=== PATIENT | male | born 1995 | race Hispanic/Latino ===

== ENCOUNTER 2017-08-20 13:04 | Emergency (ER) | payer OTHER, SELFPAY ==
[2017-08-20] MEDS ORDERED: KETOROLAC 30 MG/ML INJ ONE (15:52)
[2017-08-20] MEDS ORDERED: CYCLOBENZAPRINE 10 MG TAB ONE (15:58)
--- NOTE | 2017-08-20 15:59 | ER ---
Nurse's Notes [facility] Name: Kathe Cotto Age: 22 yrs Sex: Male : 1995 Arrival Date: 08/20/2017 Time: 13:08 Bed 10 Private MD: Diagnosis: Strain of muscle, fascia and tendon of lower back Presentation: 08/20 13:16 Presenting complaint: Patient states: "I had a little bit of back pain" Patient eating lk1 chips and drinking soda in triage. Transition of care: patient was not received from another setting of care. Onset of symptoms was August 19, 2017 at 15:00. Care prior to arrival: None. 13:16 Method Of Arrival: Ambulatory lk1 13:16 Acuity: ISAAC 5 lk1 Triage Assessment: 13:18 General: Appears in no apparent distress. Behavior is calm, cooperative, appropriate lk1 for age. Pain: Complains of pain in back Pain currently is 4 out of 10 on a pain scale. Musculoskeletal: Range of motion: intact in all extremities. Historical: - Allergies: 13:18 No Known Allergies; lk1 - PMHx: 13:18 intussusception; lk1 13:21 Hypertension; lk1 - PSHx: 13:18 abdominal surgery; lk1 - Immunization history:: Adult Immunizations up to date. - Social history:: Smoking status: Patient uses tobacco products, smokes one pack cigarettes per day. Screenin:30 Abuse screen: Denies threats or abuse. Denies injuries from another. Nutritional ss screening: No deficits noted. Tuberculosis screening: Never had TB. Fall Risk None identified. Assessment: 15:30 General: Appears in no apparent distress. comfortable, Behavior is calm, cooperative. ss General: pt is eating chips . Neuro: Level of Consciousness is awake, alert, obeys commands, Oriented to person, place, time, situation. Cardiovascular: Heart tones S1 S2 present Capillary refill < 3 seconds is brisk in bilateral fingers Patient's skin is warm and dry. Chest pain is denied. Respiratory: Airway is patent Respiratory effort is even, unlabored, Respiratory pattern is regular, symmetrical. GI: No signs and/or symptoms were reported involving the gastrointestinal system. Derm: Skin is intact, is healthy with good turgor, Skin is dry, Skin is pink, warm \\T\\ dry. normal. Musculoskeletal: Circulation, motion, and sensation intact. Range of motion: intact in all extremities, Swelling absent. 16:00 Reassessment: Patient appears in no apparent distress at this time. Patient and/or ss family updated on plan of care and expected duration. Pain level reassessed. Patient is alert, oriented x 3, equal unlabored respirations, skin warm/dry/pink. Patient states feeling better. Patient states symptoms have improved. Vital Signs: 13:19 BP 167 / 92; Pulse 98; Resp 16; Temp 97.2(TE); Pulse Ox 98% on R/A; Weight 142.88 kg lk1 (R); Height 5 ft. 11 in. (180.34 cm) (R); Pain 4/10; 15:55 BP 191 / 117; Pulse 86; Resp 16; Pulse Ox 99% on R/A; lk1 16:00 BP 148 / 87 LA Supine (/lg); Pulse 85; Resp 17; ss 13:19 Body Mass Index 43.93 (142.88 kg, 180.34 cm) lk1 ED Course: 13:08 Patient arrived in ED. as 13:17 Triage completed. lk1 13:21 Arm band placed on right wrist. lk1 14:56 Catarino Delgado MD is Attending Physician. tw4 15:30 Brinda Cutler, MICKEY is Primary Nurse. ss 15:30 Patient has correct armband on for positive identification. Bed in low position. Call ss light in reach. 16:00 No provider procedures requiring assistance completed. Patient did not have IV access ss during this emergency room visit. Administered Medications: 15:37 Drug: TORadol 60 mg Route: IM; Site: right gluteus; 16:08 Follow up: Response: No adverse reaction; Pain is decreased 15:42 Drug: Flexeril 10 mg Route: PO; ss 16:08 Follow up: Response: No adverse reaction; Pain is decreased Outcome: 15:59 Discharge ordered by . tw4 16:00 Discharged to home ambulatory, with family. 16:00 Condition: good 16:09 Discharge instructions given to patient, family, Instructed on discharge instructions, ss follow up and referral plans. medication usage, Demonstrated understanding of instructions, follow-up care, medications, Prescriptions given X 2. 16:09 Patient left the ED. Signatures: Eva Sandhu Shelby, MICKEY RN ss Gogo Hernandez RN RN lk1 Catarino Delgado MD MD tw4
--- NOTE | 2017-08-20 15:59 | EDPHYS ---
Physician Documentation [facility] Name: Kathe Cotto Age: 22 yrs Sex: Male : 1995 Arrival Date: 08/20/2017 Time: 13:08 Bed 10 Private MD: ED Physician Catarino Delgado HPI: 08/20 18:26 This 22 yrs old Male presents to ER via Ambulatory with complaints of Back tw4 Pain. 18:26 The patient presents with pain that is acute. The patient presents with pain that is tw4 acute, with no known mechanism of injury. The symptoms are located in the low back. Onset: The symptoms/episode began/occurred today. The pain does not radiate. Associated signs and symptoms: The patient has no apparent associated signs or symptoms. The problem was sustained from unknown cause. Modifying factors: The patient symptoms are alleviated by nothing, the patient symptoms are aggravated by any movement. Severity of symptoms: At their worst the symptoms were moderate, in the emergency department the symptoms are unchanged. Historical: - Allergies: 13:18 No Known Allergies; lk1 - PMHx: 13:18 intussusception; lk1 13:21 Hypertension; lk1 - PSHx: 13:18 abdominal surgery; lk1 - Immunization history:: Adult Immunizations up to date. - Social history:: Smoking status: Patient uses tobacco products, smokes one pack cigarettes per day. ROS: 18:26 Constitutional: Negative for fever, chills, and weight loss, Eyes: Negative for injury, tw4 pain, redness, and discharge, Cardiovascular: Negative for chest pain, palpitations, and edema, Respiratory: Negative for shortness of breath, cough, wheezing, and pleuritic chest pain, Abdomen/GI: Negative for abdominal pain, nausea, vomiting, diarrhea, and constipation. 18:26 Neuro: Negative for headache, weakness, numbness, tingling, and seizure. 18:26 Back: Positive for pain at rest, pain with movement, Negative for injury or acute deformity, decreased range of motion. Exam: 18:26 Constitutional: This is a well developed, well nourished patient who is awake, alert, tw4 and in no acute distress. Head/Face: Normocephalic, atraumatic. Chest/axilla: Normal chest wall appearance and motion. Nontender with no deformity. No lesions are appreciated. Cardiovascular: Regular rate and rhythm with a normal S1 and S2. No gallops, murmurs, or rubs. Normal PMI, no JVD. No pulse deficits. Respiratory: Lungs have equal breath sounds bilaterally, clear to auscultation and percussion. No rales, rhonchi or wheezes noted. No increased work of breathing, no retractions or nasal flaring. Abdomen/GI: Soft, non-tender, with normal bowel sounds. No distension or tympany. No guarding or rebound. No evidence of tenderness throughout. 18:26 Back: pain, that is mild, of the right scapular area and right subscapular area, ROM is normal, normal spinal alignment noted, CVA tenderness, is absent, muscle spasm, is appreciated in the right scapular area and right subscapular area. Vital Signs: 13:19 BP 167 / 92; Pulse 98; Resp 16; Temp 97.2(TE); Pulse Ox 98% on R/A; Weight 142.88 kg lk1 (R); Height 5 ft. 11 in. (180.34 cm) (R); Pain 4/10; 15:55 BP 191 / 117; Pulse 86; Resp 16; Pulse Ox 99% on R/A; lk1 16:00 BP 148 / 87 LA Supine (/lg); Pulse 85; Resp 17; ss 13:19 Body Mass Index 43.93 (142.88 kg, 180.34 cm) lk1 MDM: 14:56 Patient medically screened. tw4 18:26 Differential diagnosis: chronic back pain, Fatigue sprain. Data reviewed: vital signs, tw4 nurses notes. Counseling: I had a detailed discussion with the patient and/or guardian regarding: the historical points, exam findings, and any diagnostic results supporting the discharge/admit diagnosis. Special discussion: I discussed with the patient/guardian in detail that at this point there is no indication for admission to the hospital. It is understood, however, that if the symptoms persist or worsen the patient needs to return immediately for re-evaluation. Administered Medications: 15:37 Drug: TORadol 60 mg Route: IM; Site: right gluteus; ss 16:08 Follow up: Response: No adverse reaction; Pain is decreased ss 15:42 Drug: Flexeril 10 mg Route: PO; ss 16:08 Follow up: Response: No adverse reaction; Pain is decreased ss Disposition: 08/20/17 15:59 Discharged to Home. Impression: Strain of muscle, fascia and tendon of lower back. - Condition is Stable. - Discharge Instructions: Back Injury Prevention, [id number], Hypertension, Jjvh-ra-Vjla, Back Pain, Adult, [id number], Back Exercises, Azjw-ym-Eygx. - Prescriptions for Ibuprofen 800 mg Oral Tablet - take 1 tablet by ORAL route every 8 hours As needed take with food; 30 tablet. Cyclobenzaprine 10 mg Oral Tablet - take 1 tablet by ORAL route every 8 hours As needed; 30 tablet. - Medication Reconciliation Form, Thank You Letter, Antibiotic Education, Prescription Opioid Use form. - Follow up: Private Physician; When: As needed; Reason: Recheck today's complaints, Continuance of care, Re-evaluation by your physician. - Problem is new. - Symptoms have improved. Signatures: Brinda Cutler RN RN Gogo Hernandez RN RN lk1 Catarino Delgado MD MD tw4
[2017-08-20 16:14] VITALS: TEMP 97.2
[2017-08-20 16:15] VITALS: O2SAT 99
[2017-08-20 16:17] VITALS: BP 148/87
== END 2017-08-20 16:09 | disposition home or self-care (01) ==
LOC: ER 13:04
DX: S39.012A Strain of muscle, fascia and tendon of lower back, initial encounter (principal); X58.XXXA Exposure to other specified factors, initial encounter; Y93.9 Activity, unspecified; Y92.9 Unspecified place or not applicable; I10 Essential (primary) hypertension; F17.210 Nicotine dependence, cigarettes, uncomplicated
CPT/HCPCS: 96372; 99283

== ENCOUNTER 2019-04-01 08:08 | Emergency (ER) | payer SELFPAY ==
--- NOTE | 2019-04-01 09:17 | ER ---
Nurse's Notes [facility] Name: Kathe Cotto Age: 23 yrs Sex: Male : 1995 Arrival Date: 04/01/2019 Time: 08:12 Bed 14 Private MD: Unknown, Unknown Diagnosis: Essential (primary) hypertension-uncontrolled;Blood in semen Presentation: 04/01 08:31 Presenting complaint: Patient states: small amount of blood in semen 2 days ago, was iw brownish tint, denies urinary s/s , had some belly pain a few days before that and was worried that had something to do with it, denies pain at this time. Transition of care: patient was not received from another setting of care. Onset of symptoms was March 30, 2019. Risk Assessment: Do you want to hurt yourself or someone else? Patient reports no desire to harm self or others. Initial Sepsis Screen: Does the patient meet any 2 criteria? No. Patient's initial sepsis screen is negative. Does the patient have a suspected source of infection? No. Patient's initial sepsis screen is negative. Care prior to arrival: None. 08:31 Method Of Arrival: Ambulatory iw 08:31 Acuity: ISAAC 4 iw Historical: - Allergies: 08:33 No Known Allergies; iw - Home Meds: 08:33 None [Active]; iw - PMHx: 08:33 Hypertension; intussusception; iw - PSHx: 08:33 abdominal surgery; iw - Immunization history:: Adult Immunizations up to date. - Social history:: Smoking status: Patient uses tobacco products, smokes one-half pack cigarettes per day. - Ebola Screening: : Patient negative for fever greater than or equal to 101.5 degrees Fahrenheit, and additional compatible Ebola Virus Disease symptoms Patient denies exposure to infectious person Patient denies travel to an Ebola-affected area in the 21 days before illness onset No symptoms or risks identified at this time. Screenin:25 Abuse screen: Denies threats or abuse. Nutritional screening: No deficits noted. rb1 Tuberculosis screening: No symptoms or risk factors identified. Fall Risk None identified. Assessment: 08:25 General: Appears in no apparent distress. comfortable, Behavior is calm, cooperative, rb1 Denies fever. Pain: Denies pain. Neuro: Level of Consciousness is awake, alert, obeys commands, Oriented to person, place, time, situation. Cardiovascular: Capillary refill < 3 seconds is brisk in bilateral fingers. Respiratory: Airway is patent Respiratory effort is even, unlabored, Respiratory pattern is regular, symmetrical. GI: No signs and/or symptoms were reported involving the gastrointestinal system. : Reports Blood in Semen Denies burning with urination, pain with urination testicular. Derm: Skin is dry, Skin is normal, Skin temperature is warm. 09:15 Reassessment: Patient appears in no apparent distress at this time. No changes from rb1 previously documented assessment. Vital Signs: 08:33 BP 175 / 119; Pulse 92; Resp 16; Temp 97.5; Pulse Ox 99% on R/A; Weight 131.54 kg; iw Height 6 ft. 0 in. (182.88 cm); Pain 0/10; 09:15 BP 177 / 99; Pulse 82; Resp 19; Temp 97.7(O); Pulse Ox 98% on R/A; Pain 0/10; rb1 08:33 Body Mass Index 39.33 (131.54 kg, 182.88 cm) ED Course: 08:12 Patient arrived in ED. ag5 08:12 Unknown, Unknown is Private Physician. ag5 08:15 Ingrid Hernández FNP-C is [facility]. kb 08:15 Gentry Hansen MD is Attending Physician. kb 08:25 Patient has correct armband on for positive identification. Bed in low position. Call rb1 light in reach. Side rails up X 1. Pulse ox on. NIBP on. 08:33 Triage completed. iw 08:33 Arm band placed on. iw 08:35 Beba Varner, RN is Primary Nurse. rb1 09:23 No provider procedures requiring assistance completed. Patient did not have IV access rb1 during this emergency room visit. Administered Medications: No medications were administered Outcome: 09:17 Discharge ordered by . kb 09:23 Patient left the ED. rb1 09:23 Discharged to home ambulatory. rb1 09:23 Condition: stable 09:23 Discharge instructions given to patient, Instructed on discharge instructions, follow up and referral plans. Demonstrated understanding of instructions, follow-up care, Prescriptions given X none Signatures: Ingrid Hernández FNP-C FNP-Daphne Scott RN RN Varner, Beba, RN RN rb1 Wendy, Ajpuma ag5
--- NOTE | 2019-04-01 09:17 | EDPHYS ---
Physician Documentation [facility] Name: Kathe Cotto Age: 23 yrs Sex: Male : 1995 Arrival Date: 04/01/2019 Time: 08:12 Bed 14 Private MD: Unknown, Unknown ED Physician Gentry Hansen HPI: 04/01 09:03 This 23 yrs old Male presents to ER via Ambulatory with complaints of Medical kb Complaint. 09:03 The patient presents with blood in semen. Onset: The symptoms/episode began/occurred 4 kb day(s) ago. Modifying factors: The symptoms are alleviated by nothing, the symptoms are aggravated by nothing. Associated signs and symptoms: Pertinent positives: blood in semen, Pertinent negatives: abdominal pain, constipation, diarrhea, dysuria, fever, hematuria, nausea, vomiting. Severity of symptoms: At their worst the symptoms were mild, in the emergency department the symptoms are unchanged. The patient has not experienced similar symptoms in the past. The patient has not recently seen a physician. Pt reports blood in semen for 4 days. Denies pain (testicular, penile, or any other), discharge, blood in urine, dysuria. . Historical: - Allergies: 08:33 No Known Allergies; iw - Home Meds: 08:33 None [Active]; iw - PMHx: 08:33 Hypertension; intussusception; iw - PSHx: 08:33 abdominal surgery; iw - Immunization history:: Adult Immunizations up to date. - Social history:: Smoking status: Patient uses tobacco products, smokes one-half pack cigarettes per day. - Ebola Screening: : Patient negative for fever greater than or equal to 101.5 degrees Fahrenheit, and additional compatible Ebola Virus Disease symptoms Patient denies exposure to infectious person Patient denies travel to an Ebola-affected area in the 21 days before illness onset No symptoms or risks identified at this time. ROS: 09:01 Constitutional: Negative for fever, chills, and weight loss, Neck: Negative for injury, kb pain, and swelling, Cardiovascular: Negative for chest pain, palpitations, and edema, Respiratory: Negative for shortness of breath, cough, wheezing, and pleuritic chest pain, Abdomen/GI: Negative for abdominal pain, nausea, vomiting, diarrhea, and constipation, Back: Negative for injury and pain, MS/Extremity: Negative for injury and deformity, Skin: Negative for injury, rash, and discoloration, Neuro: Negative for headache, weakness, numbness, tingling, and seizure. 09:01 : Positive for blood in semen. Exam: 09: Constitutional: This is a well developed, well nourished patient who is awake, alert, kb and in no acute distress. Head/Face: Normocephalic, atraumatic. Neck: Trachea midline, no thyromegaly or masses palpated, and no cervical lymphadenopathy. Supple, full range of motion without nuchal rigidity, or vertebral point tenderness. No Meningismus. Chest/axilla: Normal chest wall appearance and motion. Nontender with no deformity. No lesions are appreciated. Cardiovascular: Regular rate and rhythm with a normal S1 and S2. No gallops, murmurs, or rubs. Normal PMI, no JVD. No pulse deficits. Respiratory: Lungs have equal breath sounds bilaterally, clear to auscultation and percussion. No rales, rhonchi or wheezes noted. No increased work of breathing, no retractions or nasal flaring. Abdomen/GI: Soft, non-tender, with normal bowel sounds. No distension or tympany. No guarding or rebound. No evidence of tenderness throughout. Back: No spinal tenderness. No costovertebral tenderness. Full range of motion. Skin: Warm, dry with normal turgor. Normal color with no rashes, no lesions, and no evidence of cellulitis. MS/ Extremity: Pulses equal, no cyanosis. Neurovascular intact. Full, normal range of motion. Neuro: Awake and alert, GCS 15, oriented to person, place, time, and situation. Cranial nerves II-XII grossly intact. Motor strength 5/5 in all extremities. Sensory grossly intact. Cerebellar exam normal. Normal gait. Vital Signs: 08:33 BP 175 / 119; Pulse 92; Resp 16; Temp 97.5; Pulse Ox 99% on R/A; Weight 131.54 kg; iw Height 6 ft. 0 in. (182.88 cm); Pain 0/10; 09:15 BP 177 / 99; Pulse 82; Resp 19; Temp 97.7(O); Pulse Ox 98% on R/A; Pain 0/10; rb1 08:33 Body Mass Index 39.33 (131.54 kg, 182.88 cm) iw MDM: 08:27 Patient medically screened. kb 09:01 Data reviewed: vital signs, nurses notes. Data interpreted: Pulse oximetry: on room air kb is 99 %. Interpretation: normal. Counseling: I had a detailed discussion with the patient and/or guardian regarding: the historical points, exam findings, and any diagnostic results supporting the discharge/admit diagnosis, lab results, the need for outpatient follow up, a family practitioner, to return to the emergency department if symptoms worsen or persist or if there are any questions or concerns that arise at home. 09:15 ED course: Discussed blood pressure with pt. States "I do take medication for it kb sometimes, but not a lot. I used to be on some, but I don't really keep up with it." Educated on risks of uncontrolled HTN and need for follow up with PCP to get BP under control. Educated on diet and exercise, as well as monitoring until follow up.Verbal understanding received. 04/01 09:05 Order name: Urine Dipstick--Ancillary (enter results) eb 04/01 08:33 Order name: Urine Dipstick-Ancillary (obtain specimen); Complete Time: 09:17 kb Administered Medications: No medications were administered Disposition: 11:54 Co-signature as Attending Physician, Gentry Hansen MD. rn Disposition: 04/01/19 09:17 Discharged to Home. Impression: Essential (primary) hypertension - uncontrolled, Blood in semen. - Condition is Stable. - Discharge Instructions: Hypertension, [id number], Managing Your Hypertension. - Medication Reconciliation Form, Thank You Letter, Antibiotic Education, Prescription Opioid Use form. - Follow up: Emergency Department; When: As needed; Reason: Worsening of condition. Follow up: Private Physician; When: 2 - 3 days; Reason: Recheck today's complaints, Continuance of care, Re-evaluation by your physician. Signatures: Dispatcher [employer] Ingrid Baird, ANUSHA FAIRP-Daphne Scott, Gentry Dixon RN, MD MD rn Barber, Rebecca, RN RN rb1 Corrections: (The following items were deleted from the chart) 09:23 09:17 04/01/2019 09:17 Discharged to Home. Impression: Essential (primary) hypertension rb1 - uncontrolled; Blood in semen. Condition is Stable. Forms are Medication Reconciliation Form, Thank You Letter, Antibiotic Education, Prescription Opioid Use. Follow up: Emergency Department; When: As needed; Reason: Worsening of condition. Follow up: Private Physician; When: 2 - 3 days; Reason: Recheck today's complaints, Continuance of care, Re-evaluation by your physician. kb
[2019-04-01 09:29] VITALS: BP 175/119; TEMP 97.5; O2SAT 99
[2019-04-01 09:34] LABS: Urine Blood NEGATIVE (NEG); Urine Glucose NEGATIVE (NEG); Urine Protein NEGATIVE (NEG); Urine Specific Gravity 1.025 (1.005-1.030)
== END 2019-04-01 09:23 | disposition home or self-care (01) ==
LOC: ER 08:08
DX: I10 Essential (primary) hypertension (principal); F17.210 Nicotine dependence, cigarettes, uncomplicated
CPT/HCPCS: 81003; 99283

== ENCOUNTER 2019-10-03 08:04 | Emergency (ER) | payer SELFPAY ==
--- NOTE | 2019-10-03 09:04 | RAD REPORT ---
EXAM DESCRIPTION: RAD - Hand Left 3 View - 10/03/2019 8:50 am CLINICAL HISTORY: hand injury, persistent hand pain following trauma COMPARISON: None. FINDINGS: Distal left fifth metacarpal fracture is present at the shaft metacarpal head junction. Sm all fracture fragments are present. Ventral angulation of approximately 15 degrees noted. No distract ion. Elsewhere the bones and joints are intact. Soft tissue swelling is present in the region of the fract ure. No foreign body. IMPRESSION: Left fifth distal metacarpal fracture as detailed.
--- NOTE | 2019-10-03 09:49 | EDPHYS ---
Physician Documentation [facility] Name: Kathe Cotto Age: 24 yrs Sex: Male : 1995 Arrival Date: 10/03/2019 Time: 08:06 Bed 7 Private MD: ED Physician Eileen Christine HPI: 10/02 08:37 This 24 yrs old Male presents to ER via Ambulatory with complaints of Hand jmm Swelling. 08:37 The patient or guardian reports injury, pain. Onset: The symptoms/episode jmm began/occurred acutely, 4 day(s) ago. Modifying factors: The symptoms are alleviated by nothing, the symptoms are aggravated by nothing. Associated signs and symptoms: Pertinent negatives: numbness distally, tingling distally. This is a 24 year old male with a history of htn that presents to the ED with complaints of left hand swelling beginning after punching a wooden stud. patient denies laceration or puncture. Patient denies other injury. . Historical: - Allergies: 08:22 No Known Allergies; bp - Home Meds: 08:22 None [Active]; bp - PMHx: 08:22 Hypertension; intussusception; bp - Immunization history:: Adult Immunizations up to date. - Social history:: Smoking status: Patient denies any tobacco usage or history of. ROS: 08:37 Constitutional: Negative for fever, chills, and weight loss, Cardiovascular: Negative jmm for chest pain, palpitations, and edema, Respiratory: Negative for shortness of breath, cough, wheezing, and pleuritic chest pain. 08:37 MS/extremity: Positive for injury or acute deformity, pain, swelling. 08:37 All other systems are negative. Exam: 08:37 Constitutional: This is a well developed, well nourished patient who is awake, alert, jmm and in no acute distress. Head/Face: atraumatic. Eyes: EOMI, no conjunctival erythema appreciated ENT: Moist Mucus Membranes Neck: Trachea midline, Supple Chest/axilla: Normal chest wall appearance and motion. Cardiovascular: Regular rate and rhythm. No edema appreciated Respiratory: Normal respirations, no respiratory distress appreciated Abdomen/GI: Non distended, soft Back: Normal ROM Skin: General appearance color normal 08:37 Musculoskeletal/extremity: swelling noted to the left hand, 5th metacarpal TTP, compartments are soft, < 2 sec dist cap refill, NVI. 08:37 Skin: Appearance: Color: normal in color. 08:37 Neuro: Orientation: is normal, Mentation: is normal, Memory: is normal. 08:37 Psych: Behavior/mood is pleasant, cooperative. Vital Signs: 08:21 BP 175 / 122; Pulse 79; Resp 16; Temp 98; Pulse Ox 100% ; Weight 142.88 kg; Height 6 bp ft. (182.88 cm); 09:26 BP 163 / 114; Pulse 68; Resp 16; Pulse Ox 98% ; bp 10:37 BP 157 / 97; Pulse 65; Resp 17; Temp 98; Pulse Ox 99% ; bp 08:21 Body Mass Index 42.72 (142.88 kg, 182.88 cm) bp Procedures: 09:36 Splinting: Splint applied to left hand using ulnar gutter. applied by tech. Examined by phillip me, post splint application: neurovascular intact, 2+ distal pulses palpable, brisk capillary refill noted, Patient tolerated well. MDM: 08:19 Patient medically screened. simon 09:47 Data reviewed: vital signs, nurses notes. Counseling: I had a detailed discussion with phillip the patient and/or guardian regarding: the historical points, exam findings, and any diagnostic results supporting the discharge/admit diagnosis, radiology results, the need for outpatient follow up, to return to the emergency department if symptoms worsen or persist or if there are any questions or concerns that arise at home. ED course: I discussed the need for further evaluation by orthopedics/hand. Patient was otherwise given strict return precautions. Patient understood and agrees with the plan of care. . 10:31 ED course: INSURANCE DEFENSE ATTORNEY aware, no results found for patient. . [facility] 10/02 08:35 Order name: Hand Left 3 View XRAY; Complete Time: 09:05 clari 10/02 09:06 Order name: Ulnar Gutter splint; Complete Time: 09:31 clari Administered Medications: No medications were administered Disposition: 18:18 Co-signature as Attending Physician, Eielen Christine MD. ma2 Disposition: 10/03/19 09:48 Discharged to Home. Impression: Displaced fracture of neck of fifth metacarpal bone, left hand. - Condition is Stable. - Discharge Instructions: Boxer's Fracture. - Prescriptions for Ultracet 37.5- 325 mg Oral Tablet - take 1 tablet by ORAL route every 6 hours - for up to 5 days; do not exceed 8 tablets per day.; 20 tablet. - Medication Reconciliation Form, Thank You Letter, Antibiotic Education, Prescription Opioid Use form. - Follow up: Pardeep Sherwood MD; When: 2 - 3 days; Reason: Recheck today's complaints, Continuance of care, Re-evaluation by your physician. Signatures: Dispatcher [employer] EDMS Tj Marshall PA PA jmm Peltier, Brian, RN RN bp Eileen Christine MD MD ma2 Corrections: (The following items were deleted from the chart) 10:39 09:48 10/03/2019 09:48 Discharged to Home. Impression: Displaced fracture of neck of bp fifth metacarpal bone, left hand. Condition is Stable. Forms are Medication Reconciliation Form, Thank You Letter, Antibiotic Education, Prescription Opioid Use. Follow up: Pardeep Sherwood; When: 2 - 3 days; Reason: Recheck today's complaints, Continuance of care, Re-evaluation by your physician. phillip
--- NOTE | 2019-10-03 09:49 | ER ---
Nurse's Notes [facility] Name: Kathe Cotto Age: 24 yrs Sex: Male : 1995 Arrival Date: 10/03/2019 Time: 08:06 Bed 7 Private MD: Diagnosis: Displaced fracture of neck of fifth metacarpal bone, left hand Presentation: 10/02 08:21 Chief complaint: Patient states: LEFT HAND SWELLING x1 WK AFTER PUNCHING HARD SURFACE. bp Coronavirus screen: Proceed with normal triage. Ebola Screen: No symptoms or risks identified at this time. Initial Sepsis Screen: Does the patient meet any 2 criteria? No. Patient's initial sepsis screen is negative. Does the patient have a suspected source of infection? No. Patient's initial sepsis screen is negative. Risk Assessment: Do you want to hurt yourself or someone else? Patient reports no desire to harm self or others. Onset of symptoms is unknown. 08:21 Method Of Arrival: Ambulatory bp 08:21 Acuity: ISAAC 4 bp Triage Assessment: 08:22 General: Appears in no apparent distress. comfortable, obese, Behavior is cooperative, bp appropriate for age, anxious. Pain: Complains of pain in left hand. EENT: No deficits noted. Neuro: No deficits noted. Cardiovascular: No deficits noted. Respiratory: No deficits noted. GI: No signs and/or symptoms were reported involving the gastrointestinal system. : No signs and/or symptoms were reported regarding the genitourinary system. Derm: No deficits noted. Musculoskeletal: Circulation, motion, and sensation intact. Swelling present in left hand. Injury Description: SWELLING LEFT HAND. Historical: - Allergies: 08:22 No Known Allergies; bp - Home Meds: 08:22 None [Active]; bp - PMHx: 08:22 Hypertension; intussusception; bp - Immunization history:: Adult Immunizations up to date. - Social history:: Smoking status: Patient denies any tobacco usage or history of. Screenin:24 Abuse screen: Denies threats or abuse. Denies injuries from another. Nutritional bp screening: No deficits noted. Tuberculosis screening: No symptoms or risk factors identified. Fall Risk None identified. Assessment: 08:24 General: SEE TRIAGE NOTE. bp 09:27 Reassessment: VS STABLE. SPLINTING IN PROCESS. bp 10:37 Reassessment: PT PROVIDED XRAY CD. D/C HOME AMBULATORY, DX WITH [facility]. bp Vital Signs: 08:21 BP 175 / 122; Pulse 79; Resp 16; Temp 98; Pulse Ox 100% ; Weight 142.88 kg; Height 6 bp ft. (182.88 cm); 09:26 BP 163 / 114; Pulse 68; Resp 16; Pulse Ox 98% ; bp 10:37 BP 157 / 97; Pulse 65; Resp 17; Temp 98; Pulse Ox 99% ; bp 08:21 Body Mass Index 42.72 (142.88 kg, 182.88 cm) bp ED Course: 08:06 Patient arrived in ED. as 08:07 Tj Marshall PA is PHCP. jmm 08:07 Eileen Christine MD is Attending Physician. jmm 08:21 Delfino Murguia, RN is Primary Nurse. bp 08:22 Triage completed. bp 08:22 Arm band placed on. bp 08:24 Patient has correct armband on for positive identification. Bed in low position. Call bp light in reach. Side rails up X2. 08:51 Hand Left 3 View XRAY In Process Unspecified. EDMS 09:32 Orthoglass splint: Ulnar gutter/Boxer splint applied on left forearm. capillary refill dh3 < 3 seconds. Viewed by Tj Marshall, P.Florencio. 09:48 Pardeep Sherwood MD is Referral Physician. [facility] 10:37 No provider procedures requiring assistance completed. Patient did not have IV access bp during this emergency room visit. Administered Medications: No medications were administered Outcome: 09:48 Discharge ordered by MD. jmm 10:37 Discharged to home ambulatory. bp 10:37 Condition: stable 10:37 Discharge instructions given to patient, Instructed on discharge instructions, follow up and referral plans. medication usage, Demonstrated understanding of instructions, follow-up care, medications, splint care, Prescriptions given X 1. 10:39 Patient left the ED. bp Signatures: Dispatcher [employer] EDMS Tj Marshall PA PA Eva Goyal Deanna dh3 Delfino Murguia, RN RN bp Corrections: (The following items were deleted from the chart) 08:24 08:21 Pulse 79bpm; Resp 16bpm; Pulse Ox 100%; Temp 98F; 142.88 kg; Height 6 ft.; BMI: bp 42.7; bp
[2019-10-03 10:46] VITALS: TEMP 98
[2019-10-03 10:49] VITALS: BP 157/97; O2SAT 99
== END 2019-10-03 10:39 | disposition home or self-care (01) ==
LOC: ER 08:04
PROC: 2W3DX1Z Immobilization of Left Lower Arm using Splint (ICD-10-PCS; principal; 2019-10-03)
DX: S62.337A Displaced fracture of neck of fifth metacarpal bone, left hand, initial encounter for closed fracture (principal); W22.09XA Striking against other stationary object, initial encounter; Y93.89 Activity, other specified; Y92.9 Unspecified place or not applicable; I10 Essential (primary) hypertension
CPT/HCPCS: 99283

== ENCOUNTER 2020-08-14 14:21 | Emergency (ER) | payer SELFPAY ==
[2020-08-14] MEDS ORDERED: HYDROCODONE/APAP 10/325 TAB ONE (15:51)
--- NOTE | 2020-08-14 16:06 | RAD REPORT ---
EXAM DESCRIPTION: CT - Stone Protocol - 08/14/2020 3:45 pm CLINICAL HISTORY: Abdominal pain./right flank pain COMPARISON: None. TECHNIQUE: Computed axial tomography of the abdomen pelvis was obtained without oral or IV contrast. Lack of IV and oral contrast limits evaluation of solid organs, bowel, and vessels. Coronal reformat diane images were obtained and reviewed. All CT scans are performed using dose optimization technique as appropriate and may include automated exposure control or mA/KV adjustment according to patient size. FINDINGS: A renal calculus is not seen. An ureteral calculus is not noted. A bladder calculus is not present. Fatty liver. Liver is mildly enlarged. Spleen, pancreas and adrenals appear grossly normal There is no evidence of diverticulitis. Umbilical hernia contains fat. The herniated sac measures 4.1 centimeters. The neck measures 1.4 centimeters IMPRESSION: Negative for a genitourinary calculus
[2020-08-14 17:03] LABS: Urine Bacteria <20 /HPF (NONE SEEN); Urine RBC NONE SEEN /HPF (NONE SEEN)
--- NOTE | 2020-08-14 17:29 | EDPHYS ---
Physician Documentation [facility] Name: Kathe Cotto Age: 25 yrs Sex: Male : 1995 Arrival Date: 08/14/2020 Time: 14:26 Bed 24 Private MD: ED Physician Gentry Hansen HPI: 08/14 15:36 This 25 yrs old Male presents to ER via Ambulatory with complaints of Back pm1 Pain. 15:36 The patient presents with pain that is acute. The symptoms are located in the right low pm1 back. Onset: The symptoms/episode began/occurred 1 day(s) ago. The pain does not radiate. Associated signs and symptoms: The patient has no apparent associated signs or symptoms, Pertinent negatives: abdominal pain, constipation, dysuria, fever, incontinence, numbness, tingling. The problem was sustained from unknown cause. Modifying factors: the patient symptoms are aggravated by bending, movement. Severity of symptoms: in the emergency department the symptoms are unchanged. The patient has experienced similar episodes in the past, a few times, today's symptoms are similar, to previous low back muscle strain. The patient has not recently seen a physician. Historical: - Allergies: 15:03 No Known Allergies; ll1 - PMHx: 15:03 Hypertension; intussusception; ll1 - PSHx: 15:03 intussusception sx; ll1 - Immunization history:: Flu vaccine is not up to date. - Social history:: Smoking status: Patient reports the use of cigarette tobacco products, smokes one-half pack cigarettes per day. ROS: 15:36 Constitutional: Negative for fever, chills, and weight loss, Neck: Negative for injury, pm1 pain, and swelling, Cardiovascular: Negative for chest pain, palpitations, and edema, Respiratory: Negative for shortness of breath, cough, wheezing, and pleuritic chest pain, Abdomen/GI: Negative for abdominal pain, nausea, vomiting, diarrhea, and constipation. 15:36 : Negative for injury, bleeding, discharge, and swelling, MS/Extremity: Negative for injury and deformity, Skin: Negative for injury, rash, and discoloration. 15:36 Neuro: Negative for headache, weakness, numbness, tingling, and seizure. 15:36 Back: Positive for pain with movement, of the right low back. Exam: 15:36 Constitutional: This is a well developed, well nourished patient who is awake, alert, pm1 and in no acute distress. Head/Face: Normocephalic, atraumatic. 15:36 Skin: Warm, dry with normal turgor. Normal color with no rashes, no lesions, and no evidence of cellulitis. MS/ Extremity: Pulses equal, no cyanosis. Neurovascular intact. Full, normal range of motion. 15:36 Cardiovascular: Exam negative for acute changes, Rate: normal, Rhythm: regular, Pulses: no pulse deficits are appreciated. 15:36 Respiratory: Exam negative for acute changes, respiratory distress, shortness of breath. 15:36 Back: normal spinal alignment noted, muscle spasm, is appreciated in the right low back, no tenderness over spinous processes. 15:36 Neuro: Exam negative for acute changes, Orientation: is normal, Mentation: is normal, Motor: is normal, moves all fours, Sensation: is normal, no obvious gross deficits, Gait: is steady, at a normal pace, without difficulty. Vital Signs: 15:00 Pulse 93; Resp 18; Temp 99.1; Pulse Ox 96% ; Weight 151.95 kg; Height 6 ft. 0 in. ll1 (182.88 cm); Pain 7/10; 15:00 BP 158 / 104; ll1 15:00 Body Mass Index 45.43 (151.95 kg, 182.88 cm) ll1 MDM: 15:27 Patient medically screened. pm1 17:25 Data reviewed: vital signs. Data interpreted: Pulse oximetry: on room air is 96 %. pm1 Interpretation: normal. 17:26 Counseling: I had a detailed discussion with the patient and/or guardian regarding: the pm1 historical points, exam findings, and any diagnostic results supporting the discharge/admit diagnosis, lab results, radiology results, the need for outpatient follow up, to return to the emergency department if symptoms worsen or persist or if there are any questions or concerns that arise at home. 17:40 Special discussion: I discussed with the patient the need to follow-up with the pm1 PCP/specialist for the noted incidental finding on X-ray/CT scanning. 08/14 15:31 Order name: Urine Microscopic Only pm1 08/14 15:32 Order name: Urine Microscopic Only; Complete Time: 17:22 EDMS 08/14 15:31 Order name: CT Stone Protocol; Complete Time: 16:35 pm1 08/14 15:47 Order name: Urine Dipstick--Ancillary (enter results) eb 08/14 15:31 Order name: Urine Dipstick-Ancillary (obtain specimen); Complete Time: 15:36 pm1 Administered Medications: 15:36 Drug: [place] (HYDROcodone-acetaminophen) 10 mg-325 mg 1 tabs {Note: rass 0.} Route: PO; ll1 17:45 Drug: Lidoderm 5 % (700 mg/patch) 1 patches Route: Topical; Site: affected area; Disposition: 18:20 Co-signature as Attending Physician, Gentry Hansen MD. rn Disposition: 08/14/20 17:28 Discharged to Home. Impression: Low back pain, Strain of muscle, fascia and tendon of lower back. - Condition is Stable. - Discharge Instructions: Back Pain, Adult, Musculoskeletal Pain, Back Injury Prevention, [id number]. - Prescriptions for Tylenol- Codeine #3 300-30 mg Oral Tablet - take 2 tablets by ORAL route every 4-6 hours As needed; 20 tablet. Cyclobenzaprine 10 mg Oral Tablet - take 1 tablet by ORAL route every 8 hours As needed; 30 tablet. Lidoderm 5 % Topical adhesive patch,medicated - apply 1 patch by TRANSDERMAL route once daily As needed 12 hours on and 12 hours off in a 24 hour period; 30 Transdermal Patch. - Medication Reconciliation Form, Thank You Letter, Antibiotic Education, Prescription Opioid Use form. - Follow up: Emergency Department; When: As needed; Reason: Worsening of condition. Follow up: Private Physician; When: 2 - 3 days; Reason: Recheck today's complaints, Continuance of care, Re-evaluation by your physician. - Problem is new. - Symptoms have improved. Signatures: Dispatcher [employer] [facility] Daphne Morales RN RN Gentry Hansen MD MD rn Marinas, Patrick, [employer] pm1 Giovanni Ken RN RN ll1 Corrections: (The following items were deleted from the chart) 17:29 17:28 08/14/2020 17:28 Discharged to Home. Impression: Low back pain; Muscle spasm of pm1 back. Condition is Stable. Forms are Medication Reconciliation Form, Thank You Letter, Antibiotic Education, Prescription Opioid Use. Follow up: Emergency Department; When: As needed; Reason: Worsening of condition. Follow up: Private Physician; When: 2 - 3 days; Reason: Recheck today's complaints, Continuance of care, Re-evaluation by your physician. Problem is new. Symptoms have improved. pm1 17:46 17:29 08/14/2020 17:28 Discharged to Home. Impression: Low back pain; Strain of muscle, iw fascia and tendon of lower back. Condition is Stable. Discharge Instructions: Back Pain, Adult, Musculoskeletal Pain, Back Injury Prevention, [id number]. Forms are Medication Reconciliation Form, Thank You Letter, Antibiotic Education, Prescription Opioid Use. Follow up: Emergency Department; When: As needed; Reason: Worsening of condition. Follow up: Private Physician; When: 2 - 3 days; Reason: Recheck today's complaints, Continuance of care, Re-evaluation by your physician. Problem is new. Symptoms have improved. pm1
--- NOTE | 2020-08-14 17:29 | ER ---
Nurse's Notes [facility] Name: Kathe Cotto Age: 25 yrs Sex: Male : 1995 Arrival Date: 08/14/2020 Time: 14:26 Bed 24 Private MD: Diagnosis: Low back pain;Strain of muscle, fascia and tendon of lower back Presentation: 08/14 15:00 Chief complaint: Patient states: R lower back pain for 1 day. Does not radiate. No ll1 trauma or falls. No fever or dysuria. Coronavirus screen: Client denies travel out of the [place] in the last 14 days. At this time, the client does not indicate any symptoms associated with coronavirus-19. Ebola Screen: Patient denies travel to an Ebola-affected area in the 21 days before illness onset. Initial Sepsis Screen: Does the patient meet any 2 criteria? No. Patient's initial sepsis screen is negative. Does the patient have a suspected source of infection? No. Patient's initial sepsis screen is negative. Risk Assessment: Do you want to hurt yourself or someone else? Patient reports no desire to harm self or others. Onset of symptoms was August 14, 2020. 15:00 Method Of Arrival: Ambulatory ll1 15:00 Acuity: ISAAC 4 ll1 Historical: - Allergies: 15:03 No Known Allergies; ll1 - PMHx: 15:03 Hypertension; intussusception; ll1 - PSHx: 15:03 intussusception sx; ll1 - Immunization history:: Flu vaccine is not up to date. - Social history:: Smoking status: Patient reports the use of cigarette tobacco products, smokes one-half pack cigarettes per day. Screenin:43 Abuse screen: Denies threats or abuse. Denies injuries from another. Nutritional iw screening: No deficits noted. Tuberculosis screening: No symptoms or risk factors identified. Fall Risk None identified. Assessment: 15:42 General: Appears in no apparent distress. comfortable, Behavior is calm, cooperative. iw Pain: Complains of pain in right mid back and right low back. Neuro: Level of Consciousness is awake, alert, obeys commands, Oriented to person, place, time, situation, Moves all extremities. Cardiovascular: Patient's skin is warm and dry. Respiratory: Respiratory effort is even, unlabored, Respiratory pattern is regular. GI:. Derm: Skin is intact, is healthy with good turgor. Musculoskeletal: Range of motion: intact in all extremities. Vital Signs: 15:00 Pulse 93; Resp 18; Temp 99.1; Pulse Ox 96% ; Weight 151.95 kg; Height 6 ft. 0 in. ll1 (182.88 cm); Pain 7/10; 15:00 BP 158 / 104; ll1 15:00 Body Mass Index 45.43 (151.95 kg, 182.88 cm) ll1 ED Course: 14:26 Patient arrived in ED. ds1 15:02 Triage completed. ll1 15:03 Arm band placed on. ll1 15:22 Jorge Mosley NP is PHCP. pm1 15:22 Gentry Hansen MD is Attending Physician. pm1 15:32 Daphne Morales RN is Primary Nurse. iw 15:42 Patient has correct armband on for positive identification. iw 15:45 CT Stone Protocol In Process Unspecified. EDMS 17:45 No provider procedures requiring assistance completed. Patient did not have IV access iw during this emergency room visit. Administered Medications: 15:36 Drug: [place] (HYDROcodone-acetaminophen) 10 mg-325 mg 1 tabs {Note: rass 0.} Route: PO; ll1 17:45 Drug: Lidoderm 5 % (700 mg/patch) 1 patches Route: Topical; Site: affected area; iw Outcome: 17:28 Discharge ordered by . pm1 17:45 Discharged to home ambulatory. iw 17:45 Condition: good 17:45 Discharge instructions given to patient, Instructed on discharge instructions, follow up and referral plans. medication usage, Demonstrated understanding of instructions, follow-up care, medications, Prescriptions given X 3. 17:46 Patient left the ED. iw Signatures: Dispatcher [employer] EDIL KeyYudi maher ds1 Daphne Morales RN RN Jorge Mosley NP DIRECTOR OF ASSESSING pm1 Giovanni Ken RN RN [facility]
[2020-08-14] MEDS ORDERED: LIDOCAINE 4% PATCH ONE (17:56)
[2020-08-14 18:16] LABS: Urine Blood NEGATIVE (Negative); Urine Glucose NEGATIVE (Negative); Urine Protein NEGATIVE (NEG); Urine Specific Gravity 1.025 (1.005-1.030)
[2020-08-15 01:46] VITALS: BP 158/104; TEMP 99.1; O2SAT 96
== END 2020-08-14 17:46 | disposition home or self-care (01) ==
LOC: ER 14:21
DX: S39.012A Strain of muscle, fascia and tendon of lower back, initial encounter (principal); I10 Essential (primary) hypertension; F17.210 Nicotine dependence, cigarettes, uncomplicated
CPT/HCPCS: 74176; 76377; 81003; 81015; 99283

== ENCOUNTER 2020-11-10 00:01 | Inpatient (IN) | payer SELFPAY ==
[2020-11-10] MEDS ORDERED: MORPHINE 4 MG/ML SYR ONE ×2 (01:11→04:13)
[2020-11-10] MEDS ORDERED: NA CHLORIDE 0.9% 1,000 ML ONE ×2 (01:12→04:14)
[2020-11-10] MEDS ORDERED: ONDANSETRON 4 MG/2 ML VIAL ONE ×2 (01:12→04:14)
[2020-11-10 01:22] LABS: Urine Blood Negative (Negative); Urine Glucose Negative (Negative); Urine Protein Trace (Negative); Urine Specific Gravity >=1.030 (1.005-1.030)
[2020-11-10 01:43] LABS: Absolute Lymphocytes (CBC) 3.2 K/uL (0.7-4.9); Basophils % 0.6 % (0-1.3); Hematocrit 49.2 % (39.6-49.0); Lymphocytes % 16.8 % (15.3-44.8); MPV 8.6 fL (7.6-11.3); RBC Red Blood Cell Count 5.92 M/uL (4.33-5.43)
[2020-11-10 02:06] LABS: Albumin 3.5 g/dL (3.4-5.0); Bilirubin Direct 0.1 mg/dL (0-0.2); Bilirubin Total 0.8 mg/dL (0.2-1.0); Protein, Total 7.6 g/dL (6.4-8.2)
[2020-11-10 02:08] LABS: Potassium 3.2 mmol/L (3.5-5.1)
--- NOTE | 2020-11-10 03:47 | EDPHYS ---
Physician Documentation [facility] Name: Kathe Cotto Age: 25 yrs Sex: Male : 1995 Arrival Date: 11/10/2020 Time: 00:04 Bed 15 Private MD: ED Physician Figueroa Nava HPI: 11/10 01:51 This 25 yrs old Male presents to ER via Ambulatory with complaints of mh7 Abdominal Pain. 01:51 The patient presents with abdominal pain in the left lower quadrant. Onset: The mh7 symptoms/episode began/occurred 4 day(s) ago. The symptoms do not radiate. 01:51 Associated signs and symptoms: Pertinent positives: constipation, Pertinent negatives: mh7 nausea, vomiting, and diarrhea, anorexia, blood in stools, chest pain, diarrhea, dysuria, fever, headache, hematuria, nausea, palpitations, shortness of breath, testicular pain, vomiting, vomiting blood. The symptoms are described as intermittent, vague, waxing/waning. Modifying factors: The symptoms are alleviated by nothing, the symptoms are aggravated by nothing. Severity of pain: At its worst the pain was moderate 2 day(s) ago, in the emergency department the pain is unchanged. Historical: - Allergies: 00:24 No Known Allergies; bb - Home Meds: 00:24 None [Active]; bb - PMHx: 00:24 Hypertension; intussusception; bb - PSHx: 00:24 intussusception sx; bb - Immunization history:: Adult Immunizations up to date. - Social history:: Smoking status: Patient reports the use of cigarette tobacco products, denies chronic smoking, but will smoke occasionally, Patient/guardian denies using alcohol, street drugs. ROS: 01:51 Constitutional: Negative for fever, chills, and weight loss, Eyes: Negative for injury, mh7 pain, redness, and discharge, ENT: Negative for injury, pain, and discharge, Neck: Negative for injury, pain, and swelling, Cardiovascular: Negative for chest pain, palpitations, and edema, Respiratory: Negative for shortness of breath, cough, wheezing, and pleuritic chest pain, Back: Negative for injury and pain, : Negative for injury, bleeding, discharge, and swelling, MS/Extremity: Negative for injury and deformity, Skin: Negative for injury, rash, and discoloration, Neuro: Negative for headache, weakness, numbness, tingling, and seizure, Psych: Negative for depression, anxiety, suicide ideation, homicidal ideation, and hallucinations, Allergy/Immunology: Negative for hives, rash, and allergies, Endocrine: Negative for neck swelling, polydipsia, polyuria, polyphagia, and marked weight changes, Hematologic/Lymphatic: Negative for swollen nodes, abnormal bleeding, and unusual bruising. Exam: 01:51 Constitutional: This is a well developed, well nourished patient who is awake, alert, mh7 and in no acute distress. Head/Face: Normocephalic, atraumatic. Eyes: Pupils equal round and reactive to light, extra-ocular motions intact. Lids and lashes normal. Conjunctiva and sclera are non-icteric and not injected. Cornea within normal limits. Periorbital areas with no swelling, redness, or edema. Neck: Trachea midline, no thyromegaly or masses palpated, and no cervical lymphadenopathy. Supple, full range of motion without nuchal rigidity, or vertebral point tenderness. No Meningismus. Chest/axilla: Normal chest wall appearance and motion. Nontender with no deformity. No lesions are appreciated. Cardiovascular: Regular rate and rhythm with a normal S1 and S2. No gallops, murmurs, or rubs. Normal PMI, no JVD. No pulse deficits. Respiratory: Lungs have equal breath sounds bilaterally, clear to auscultation and percussion. No rales, rhonchi or wheezes noted. No increased work of breathing, no retractions or nasal flaring. 01:51 Back: No spinal tenderness. No costovertebral tenderness. Full range of motion. Skin: Warm, dry with normal turgor. Normal color with no rashes, no lesions, and no evidence of cellulitis. MS/ Extremity: Pulses equal, no cyanosis. Neurovascular intact. Full, normal range of motion. Neuro: Awake and alert, GCS 15, oriented to person, place, time, and situation. Cranial nerves II-XII grossly intact. Motor strength 5/5 in all extremities. Sensory grossly intact. Cerebellar exam normal. Normal gait. Psych: Awake, alert, with orientation to person, place and time. Behavior, mood, and affect are within normal limits. 01:51 Abdomen/GI: Inspection: obese scar(s), are noted in the right lower quadrant, Bowel sounds: normal, in all quadrants, Palpation: moderate abdominal tenderness, in the left lower quadrant, mass, is not appreciated, rebound tenderness, is not appreciated, voluntary guarding, is not appreciated, involuntary guarding, is not appreciated, no appreciated organomegaly, Rectal exam: the exam is deferred, because of patient request, Indicators: McBurney's point is not tender, Bailon's sign is negative, Rovsing's sign is negative, Obturator sign is negative, Psoas sign is negative, Liver: no appreciated palpable abnormalities, Hernia: not appreciated. Vital Signs: 00:19 BP 168 / 106; Pulse 89; Resp 16 S; Temp 98.6; Pulse Ox 98% on R/A; Weight 145.15 kg bb (R); Height 6 ft. 0 in. (182.88 cm) (R); Pain 9/10; 01:28 BP 151 / 96; Pulse 95; Resp 16; Pulse Ox 98% on R/A; jm8 03:17 BP 187 / 92; Pulse 98; Resp 16; Pulse Ox 97% ; jm8 00:19 Body Mass Index 43.40 (145.15 kg, 182.88 cm) bb MDM: 03:45 Differential diagnosis: bowel obstruction, diverticulitis, non-specific abd pain, [facility] pancreatitis, Ureterolithiasis, urinary tract infection. Data reviewed: vital signs, nurses notes, lab test result(s), CBC, electrolytes, urinalysis, radiologic studies, CT scan. Data interpreted: Pulse oximetry: on room air is 97 %. Interpretation: normal. Response to treatment: the patient's symptoms have mildly improved after treatment. 03:47 Patient medically screened. [facility] 11/10 00:45 Order name: Basic Metabolic Panel [facility] 11/10 00:45 Order name: CBC with Diff [facility] 11/10 00:45 Order name: Hepatic Function [facility] 11/10 00:45 Order name: Lipase [facility] 11/10 01:22 Order name: Urine Dipstick-Ancillary; Complete Time: 02:06 [facility] 11/10 01:43 Order name: CBC with Automated Diff; Complete Time: 02:06 [facility] 11/10 00:45 Order name: CT Abd/Pelvis - IV Contrast Only [facility] 11/10 02:09 Order name: Basic Metabolic Panel; Complete Time: 02:28 [facility] 11/10 02:09 Order name: Liver (Hepatic) Function; Complete Time: 02:29 [facility] 11/10 02:09 Order name: Lipase; Complete Time: 02:29 [facility] 11/10 02:48 Order name: COVID-19 : Document "Date of Symptom Onset" if Symptomatic. tt3 11/10 03:09 Order name: CORONAVIRUS [facility] 11/10 06:20 Order name: SARS-COV-2 RT PCR [facility] 11/10 00:45 Order name: IV Saline Lock; Complete Time: 01:28 [facility] 11/10 00:45 Order name: Labs collected and sent; Complete Time: 01: [facility] 11/10 00:45 Order name: Urine Dipstick-Ancillary (obtain specimen); Complete Time: 01:26 [facility] 11/10 03:54 Order name: NPO; Complete Time: 03:55 [facility] Administered Medications: 01:06 Drug: NS 0.9% 1000 ml Route: IV; Rate: 1000 ml; Site: right antecubital; 8 04:00 Follow up: IV Status: Completed infusion jm8 01:06 Drug: morphine 4 mg Route: IVP; Site: right antecubital; jm8 02:16 Follow up: Response: No adverse reaction jm8 01:06 Drug: Zofran (Ondansetron) 4 mg Route: IVP; Site: right antecubital; jm8 02:16 Follow up: Response: No adverse reaction 8 03:40 Drug: Zosyn (piperacillin-tazobactam) 3.375 grams Route: IVPB; Infused Over: 60 mins; 8 Site: left antecubital; 04:00 Follow up: IV Status: Infusion continued upon admission jm8 03:54 Drug: morphine 4 mg Route: IVP; Site: left antecubital; jm8 04:00 Follow up: Response: No adverse reaction jm8 03:55 Drug: Zofran (Ondansetron) 4 mg Route: IVP; Site: left antecubital; jm8 04:00 Follow up: Response: No adverse reaction jm8 03:55 Drug: NS 0.9% 1000 ml Route: IV; Rate: 125 ml/hr; Site: left antecubital; jm8 04:00 Follow up: IV Status: Infusion continued upon admission jm8 Disposition: 11/10/20 03:47 Hospitalization ordered by Ankit Hansen for Inpatient Admission. Preliminary diagnosis are Acute Diverticulitis, Vomiting. - Bed requested for Telemetry/MedSurg (Inpatient). - Status is Inpatient Admission. eb - Condition is Stable. - Problem is new. - Symptoms have improved. Signatures: Dispatcher [employer] EDMS Alda Hill RN RN mw Ballard, Brenda, RN RN bb Attema, Lee, GANG HEMSTITCHING MACHINE OPERATOR-C GANG HEMSTITCHING MACHINE OPERATOR-Cla1 Nishi Kent Maurice, MD MD 7 Aguila Martínez RN RN jm8 Corrections: (The following items were deleted from the chart) 06:21 03:47 Hospitalization Ordered by Ankit Hansen MD for Inpatient Admission. Preliminary diagnosis is Acute Diverticulitis; Vomiting. Bed requested for Telemetry/MedSurg (Inpatient). Status is Inpatient Admission. Condition is Stable. Problem is new. Symptoms have improved. 7 09:28 06:21 11/10/2020 03:47 Hospitalization Ordered by Ankit Hansen MD for Inpatient eb Admission. Preliminary diagnosis is Acute Diverticulitis; Vomiting. Bed requested for Telemetry/MedSurg (Inpatient). Status is Inpatient Admission. Condition is Stable. Problem is new. Symptoms have improved.
--- NOTE | 2020-11-10 03:47 | ER ---
Nurse's Notes [facility] Name: Kathe Cotto Age: 25 yrs Sex: Male : 1995 Arrival Date: 11/10/2020 Time: 00:04 Bed 15 Private MD: Diagnosis: Acute Diverticulitis;Vomiting Presentation: 11/10 00:19 Chief complaint: Patient states: he has been having abdominal pain for several days has bb not had a bowel movement in 3 to 4 days and has difficulty urinating. Coronavirus screen: At this time, the client does not indicate any symptoms associated with coronavirus-19. Ebola Screen: No symptoms or risks identified at this time. Initial Sepsis Screen: Does the patient meet any 2 criteria? No. Patient's initial sepsis screen is negative. Does the patient have a suspected source of infection? No. Patient's initial sepsis screen is negative. Risk Assessment: Do you want to hurt yourself or someone else? Patient reports no desire to harm self or others. Onset of symptoms is unknown. 00:19 Method Of Arrival: Ambulatory bb 00:19 Acuity: ISAAC 3 bb Historical: - Allergies: 00:24 No Known Allergies; bb - Home Meds: 00:24 None [Active]; bb - PMHx: 00:24 Hypertension; intussusception; bb - PSHx: 00:24 intussusception sx; bb - Immunization history:: Adult Immunizations up to date. - Social history:: Smoking status: Patient reports the use of cigarette tobacco products, denies chronic smoking, but will smoke occasionally, Patient/guardian denies using alcohol, street drugs. Screenin:20 Abuse screen: Denies threats or abuse. Denies injuries from another. Nutritional jm8 screening: No deficits noted. Tuberculosis screening: No symptoms or risk factors identified. Fall Risk None identified. Assessment: 00:34 General: Appears in no apparent distress. uncomfortable, Behavior is calm, cooperative, jm8 appropriate for age. Pain: Complains of pain in abdomen Pain currently is 9 out of 10 on a pain scale. Quality of pain is described as crampy, Noted to be guarding, restless. Neuro: No deficits noted. Level of Consciousness is awake, alert, obeys commands, Oriented to person, place, time. Cardiovascular: No deficits noted. Respiratory: No deficits noted. Airway is patent Trachea midline Respiratory effort is even, unlabored, Respiratory pattern is regular, symmetrical. GI: Abdomen is round distended, Bowel sounds present X 4 quads. Abd is soft and non tender Reports lower abdominal pain, upper abdominal pain, constipation, no bowel movement for 3-4 days. : Reports difficulty urinating. EENT: No deficits noted. No signs and/or symptoms were reported regarding the EENT system. Derm: No deficits noted. No signs and/or symptoms reported regarding the dermatologic system. Musculoskeletal: No deficits noted. No signs and/or symptoms reported regarding the musculoskeletal system. Vital Signs: 00:19 BP 168 / 106; Pulse 89; Resp 16 S; Temp 98.6; Pulse Ox 98% on R/A; Weight 145.15 kg bb (R); Height 6 ft. 0 in. (182.88 cm) (R); Pain 9/10; 01:28 BP 151 / 96; Pulse 95; Resp 16; Pulse Ox 98% on R/A; 8 03:17 BP 187 / 92; Pulse 98; Resp 16; Pulse Ox 97% ; jm8 00:19 Body Mass Index 43.40 (145.15 kg, 182.88 cm) ED Course: 00:04 Patient arrived in ED. am4 00:19 Figueroa Nava MD is Attending Physician. 7 00:19 Patient has correct armband on for positive identification. Placed in gown. Bed in low jm8 position. Call light in reach. Side rails up X2. 00:23 Triage completed. 00:24 Arm band placed on Patient placed in an exam room, on a stretcher, on pulse oximetry. bb 03:46 Ankit Hansen MD is Hospitalizing Provider. 7 03:59 No provider procedures requiring assistance completed. Patient admitted, IV remains in jm8 place. 08:31 Susi Bills RN is Primary Nurse. tr6 Administered Medications: 01:06 Drug: NS 0.9% 1000 ml Route: IV; Rate: 1000 ml; Site: right antecubital; 8 04:00 Follow up: IV Status: Completed infusion 8 01:06 Drug: morphine 4 mg Route: IVP; Site: right antecubital; 8 02:16 Follow up: Response: No adverse reaction jm8 01:06 Drug: Zofran (Ondansetron) 4 mg Route: IVP; Site: right antecubital; jm8 02:16 Follow up: Response: No adverse reaction jm8 03:40 Drug: Zosyn (piperacillin-tazobactam) 3.375 grams Route: IVPB; Infused Over: 60 mins; jm8 Site: left antecubital; 04:00 Follow up: IV Status: Infusion continued upon admission jm8 03:54 Drug: morphine 4 mg Route: IVP; Site: left antecubital; jm8 04:00 Follow up: Response: No adverse reaction jm8 03:55 Drug: Zofran (Ondansetron) 4 mg Route: IVP; Site: left antecubital; jm8 04:00 Follow up: Response: No adverse reaction jm8 03:55 Drug: NS 0.9% 1000 ml Route: IV; Rate: 125 ml/hr; Site: left antecubital; jm8 04:00 Follow up: IV Status: Infusion continued upon admission [facility] Outcome: 03:47 Decision to Hospitalize by Provider. [facility] 03:59 Admitted to ER Hold. Please see [facility] for further documentation. [facility] 03:59 Condition: good 03:59 Instructed on the need for admit. 08:45 Admitted to Med/surg accompanied by tech, via wheelchair, room 418, Report called to jennifer griggs RN 09:28 Patient left the ED. eb Signatures: Shayy Ceballos RN Nishi Peters Maurice, MD MD Mallory Mesa Joseph, RN RN Susi Contreras RN RN trElmer
[2020-11-10] MEDS ORDERED: PIPER/TAZO/NS 3.375gm 3.375 GM/100 ML BAG ONE (03:59)
[2020-11-10] MEDS: NA CHLORIDE 0.9% 1,000 ML IV SCH ×2 (04:07→10:17)
[2020-11-10] MEDS ORDERED: ONDANSETRON 4 MG/2 ML VIAL IV PRN (04:07)
--- NOTE | 2020-11-10 04:37 | P.HP ---
Certification for Inpatient Patient admitted to: Inpatient With expected LOS: >2 Midnights Patient will require the following post-hospital care: None Practitioner: I am a practitioner with admitting privileges, knowledge of patient current condition, hospital course, and medical plan of care. Services: Services provided to patient in accordance with Admission requirements found in Title 42 Section 412.3 of the Code of Federal Regulations <Kris Brown - Last Filed: 11/10/20 04:35> Patient History Date of Service: 11/10/20 Primary Care Provider: none Reason for admission: Acute sigmoid Diverticulitis History of Present Illness: 25-year-old male with history of intussusception as a child presents emergency department for left lower quadrant abdominal pain. Patient reports pain started approximately 3 days prior. Evaluated in the emergency department, labs significant for white blood cell count 19,000 potassium 3.[address] abdomen pelvis demonstrates acute non complicated sigmoid diverticulitis. ED provider wishes to admit for further evaluation and management. When I saw the patient in the ER he was awake, alert, oriented x3, patient vomited x1, still having significant left lower quadrant abdominal pain and leukocytosis, admit for further evaluation and management. - Past Medical/Surgical History -: Intussusception -: Intussusception repair Psychosocial/ Personal History: Unemployed, lives with family - Family History Family History: Reviewed- Non-Contributory - Social History Smoking Status: Current every day smoker Counseled patient to stop smoking for: less than 10 minutes Smoking therapy provided: Yes Place of Residence: Home <Kris Brown - Last Filed: 11/10/20 04:35> Date of Service: 11/10/20 <Ankit Hansen - Last Filed: 11/10/20 12:32> Allergies No Known Allergies Allergy (Unverified 04/02/12 12:45) Review of Systems 10-point ROS is otherwise unremarkable Gastrointestinal: Nausea, Vomiting, Abdominal Pain <Kris Brown - Last Filed: 11/10/20 04:35> Physical Examination - Physical Exam General: Alert, In no apparent distress, Oriented x3 HEENT: Atraumatic, PERRLA, Mucous membr. moist/pink Neck: Supple, 2+ carotid pulse no bruit, No LAD Respiratory: Clear to auscultation bilaterally, Normal air movement Cardiovascular: Regular rate/rhythm, Normal S1 S2 Gastrointestinal: Normal bowel sounds, Tenderness (Mild to moderate left lower quadrant and suprapubic tenderness) Musculoskeletal: No tenderness Integumentary: No rashes Neurological: Normal gait, Normal speech, Normal strength at 5/5 x4 extr, Normal tone, Normal affect Lymphatics: No axilla or inguinal lymphadenopathy - Studies Laboratory Data (last 24 hrs) 11/10/20 01:01: WBC 19.00 H, Hgb 16.7, Hct 49.2 H, Plt Count 238 11/10/20 01:01: Sodium 142, Potassium 3.2 L, BUN 11, Creatinine 1.05, Glucose 103, Total Bilirubin 0.8, AST 35, ALT 82 H, Alkaline Phosphatase 69, Lipase 79 <Kris Brown - Last Filed: 11/10/20 04:35> - Studies Laboratory Data (last 24 hrs) 11/10/20 01:01: WBC 19.00 H, Hgb 16.7, Hct 49.2 H, Plt Count 238 11/10/20 01:01: Sodium 142, Potassium 3.2 L, BUN 11, Creatinine 1.05, Glucose 103, Total Bilirubin 0.8, AST 35, ALT 82 H, Alkaline Phosphatase 69, Lipase 79 <Ankit Hansen - Last Filed: 11/10/20 12:32> Assessment and Plan - Plan Assessment Acute sigmoid diverticulitis without perforation or abscess Plan Acute sigmoid diverticulitis without perforation or abscess: Patient is still having significant abdominal pain and vomited in the emergency department, will continue as NPO for now. IV Cipro/Flagyl, p.r.n. pain medications/anti emetics. Continue with IV fluid. DVT prophylaxis Lovenox 40 mg subcutaneous once daily, serial abdominal exams. Discharge Plan: Home Plan to discharge in: 48 Hours - Advance Directives Does patient have a Living Will: No Does patient have a Durable POA for Healthcare: No - Code Status/Comfort Care Code Status Assessed: Yes (Full code) Critical Care: No Time Spent Managing Pts Care (In Minutes): 55 <Kris Brown - Last Filed: 11/10/20 04:35> - Plan Sepsis secondary to acute sigmoid diverticulitis Covid-19+ Patient seen this morning, reports improvement in abdominal pain with mediation, +nausea, +flatus still with moderate tenderness on exam in LLQ, continue NPO, IVF for now. will re-eval later today, possible ice chips/sips later tested positive for COVID-19, denies symptoms, has been hanging out with multiple people / parties, monitor for now no evidence of severe sepsis/shock <Ankit Hansen - Last Filed: 11/10/20 12:32>
[2020-11-10] MEDS: METRONIDAZOLE 500mg IVPB 500 MG/100 ML BAG IV SCH ×2 (09:00→16:35)
[2020-11-10] MEDS: ENOXAPARIN 40 MG/0.4 ML SQ SCH (09:00)
[2020-11-10] MEDS ORDERED: METHYLPREDNISOLONE 125 MG INJ ONE (09:23)
[2020-11-10 10:31] VITALS: BMI 43.4
[2020-11-10] MEDS ORDERED: HYDRALAZINE HCL 20 MG/ML VIAL IV PRN (10:43)
--- NOTE | 2020-11-10 10:53 | P.INFCA ---
Sepsis Focused Assessment - Focused Assessment Complete? Sepsis Focused Assessment Completed?: Yes - Sepsis Screen Result Severe Sepsis: Negative Septic Shock: Negative - Evaluation Current stage of sepsis: Ruled out Reason for ruling out sepsis: stable, no evidence of severe sepsis - Vital Signs Reviewed: Yes Heart rate: 98 Blood Pressure: 187/92 Respiratory Rate: 16 - Examination Date exam was performed: 11/10/20 Time exam was performed: 07:30 Heart: Regular rate/rhythm, S1, S2 Lungs: Clear bilaterally Peripheral pulses: 3+ Normal Peripheral pulse location: Radial, Pedal Capillary refill: <2 Seconds Skin examination: Normal turgor, Unremarkable
[2020-11-10] MEDS: CIPROFLOXACIN 400mg IV 400 MG/200 ML BAG IV SCH ×2 (11:48→21:05)
[2020-11-10 12:10] LABS: Protime INR 1.15
[2020-11-10] MEDS: MORPHINE 2 MG/ML SYR IV PRN ×3 (12:51→21:05)
[2020-11-10] MEDS: KCL 20 MEQ/100 mL IVPB 20 MEQ/100 ML BAG IV SCH ×2 (15:13→17:23)
--- NOTE | 2020-11-10 15:55 | RAD REPORT ---
EXAM DESCRIPTION: [place] Single View11/10/2020 3:38 pm CLINICAL HISTORY: Sepsis/abdominal pain COMPARISON: none FINDINGS: The lungs appear clear of acute infiltrate. The heart is normal size IMPRESSION: No acute abnormalities displayed
--- NOTE | 2020-11-10 16:27 | RAD REPORT ---
EXAM DESCRIPTION: CT ABDOMEN AND PELVIS WITH CONTRAST CLINICAL HISTORY: ABD PAIN COMPARISON: 08/14/2020 TECHNIQUE: CT of the abdomen and pelvis performed following IV administration of iodinated contras t. This exam was performed according to our departmental dose-optimization program, which includes au tomated exposure control, adjustment of the mA and/or kV according to patient size and/or use of iter ative reconstruction technique. FINDINGS: Lung Bases: The visualized lung bases are clear. Bones: Mild multilevel endplate spondylosis. Abdomen: Liver: Hepatomegaly and diffusely decreased density. Gallbladder: No calcified gallstones. Spleen, Pancreas, and Adrenal Glands: The spleen, pancreas, and adrenal glands are unremarkable. Kidneys: No hydronephrosis or obstructing calculus. Vasculature: The aorta and IVC have normal caliber and position. The portal vein is patent. The pro ximal visceral and renal arteries are patent. Stomach: The stomach and duodenum have normal course. Other: No free intraperitoneal air. No free fluid or lymphadenopathy. Small fat-containing umbili samantha hernia. Pelvis: Bladder: Urinary bladder is unremarkable. Bowel: No dilated loops of large or small bowel. Scattered diverticula of the colon. Focal inflamma tory change of a diverticula involving the sigmoid colon with short segment wall thickening and peric olic inflammatory change. No well-circumscribed pericolic fluid collection. Appendix: Not identified. Pelvis: Prostate is not enlarged. IMPRESSION: 1. Findings compatible with acute uncomplicated diverticulitis of the sigmoid colon. 2. Hepatomegaly and hepatic steatosis. Electronically signed by: Clyde John 11/10/2020 3:37 AM CDT Due to temporary technical issues with the PACS/Fluency reporting system, reports are being signed by the in house radiologists without review as a courtesy to insure prompt reporting. The interpreting radiologist is fully responsible for the content of the report.
[2020-11-10] MEDS ORDERED: LORazepam 2 MG/ML VIAL IV PRN (21:32)
[2020-11-10 23:09] VITALS: O2SAT 99
[2020-11-11] MEDS: METRONIDAZOLE 500mg IVPB 500 MG/100 ML BAG IV SCH ×2 (00:36→07:43)
[2020-11-11] MEDS: NA CHLORIDE 0.9% 1,000 ML IV SCH ×2 (00:36→07:42)
[2020-11-11 04:48] LABS: Basophils % 0.7 % (0-1.3); Hematocrit 47.7 % (39.6-49.0); Lymphocytes % 12.9 % (15.3-44.8); MPV 8.1 fL (7.6-11.3); RBC Red Blood Cell Count 5.73 M/uL (4.33-5.43)
[2020-11-11 05:24] LABS: ALT/SGPT 61 U/L (12-78); AST/SGOT 21 U/L (15-37); Albumin 3.1 g/dL (3.4-5.0); Alkaline Phosphatase 53 U/L (45-117); BUN Blood Urea Nitrogen 4 mg/dL (7-18); Bicarbonate 28 mmol/L (21-32); Bilirubin Total 1.8 mg/dL (0.2-1.0); Ferritin 218.5 ng/mL (26-388); Glucose Level 105 mg/dL (74-106); Protein, Total 6.9 g/dL (6.4-8.2); Sodium Level 137 mmol/L (136-145)
[2020-11-11 05:25] LABS: Potassium 2.6 mmol/L (3.5-5.1)
[2020-11-11] MEDS: KCL 20 MEQ/100 mL IVPB 20 MEQ/100 ML BAG IV SCH ×2 (05:57→07:42)
[2020-11-11] MEDS: CIPROFLOXACIN 400mg IV 400 MG/200 ML BAG IV SCH (07:42)
[2020-11-11] MEDS: ENOXAPARIN 40 MG/0.4 ML SQ SCH (07:43)
[2020-11-11] MEDS ORDERED: POTASSIUM 25 MEQ EFFERV TAB PO ONE ×2 (08:02→11:54)
[2020-11-11] MEDS ORDERED: NS KCL 20MEQ 20 MEQ/1,000 ML BAG IV SCH (09:00)
[2020-11-11 12:54] VITALS: BP 148/62; TEMP 97.1
--- NOTE | 2020-11-11 13:42 | P.DS ---
Admission Date: 11/10/20 Discharge Date: 11/11/20 Primary Care Provider: none Disposition: ROUTINE DISCHARGE Discharge Condition: GOOD Reason for Admission: Acute sigmoid Diverticulitis Procedures: CXR (11/10): The lungs appear clear of acute infiltrate. The heart is normal size IMPRESSION: No acute abnormalities displayed CT Abd/pelvis (11/10): IMPRESSION: 1. Findings compatible with acute uncomplicated diverticulitis of the sigmoid colon. 2. Hepatomegaly and hepatic steatosis. FINDINGS: Lung Bases: The visualized lung bases are clear. Bones: Mild multilevel endplate spondylosis. Abdomen: Liver: Hepatomegaly and diffusely decreased density. Gallbladder: No calcified gallstones. Spleen, Pancreas, and Adrenal Glands: The spleen, pancreas, and adrenal glands are unremarkable. Kidneys: No hydronephrosis or obstructing calculus. Vasculature: The aorta and IVC have normal caliber and position. The portal vein is patent. The proximal visceral and renal arteries are patent. Stomach: The stomach and duodenum have normal course. Other: No free intraperitoneal air. No free fluid or lymphadenopathy. Small fat-containing umbilical hernia. Pelvis: Bladder: Urinary bladder is unremarkable. Bowel: No dilated loops of large or small bowel. Scattered diverticula of the colon. Focal inflammatory change of a diverticula involving the sigmoid colon with short segment wall thickening and pericolic inflammatory change. No well- circumscribed pericolic fluid collection. Appendix: Not identified. Pelvis: Prostate is not enlarged. Problem List Sepsis secondary to acute sigmoid diverticulitis without perforation or abscess Covid-19+ Brief History of Present Illness: 25-year-old male with history of intussusception as a child presents emergency department for left lower quadrant abdominal pain. Patient reports pain started approximately 3 days prior. Evaluated in the emergency department, labs significant for white blood cell count 19,000 potassium 3.[address] abdomen pelvis demonstrates acute non complicated sigmoid diverticulitis. ED provider wishes to admit for further evaluation and management. Hospital Course: Patient was also found to be positive for COVID-19 but remained asymptomatic. Received IV antibiotics, bowel rest, and IV fluids. He had gradual resolution of symptoms and diet was advanced to a GI soft diet. \ On day of discharge, patient was tolerating a soft diet without nausea/pain. He was feeling much better. Discharged to complete 2 weeks of cipro & flagyl. He was noted to have hypokalemia, responded well to PO replacement. He was discharged with a few days of KCL tablets. Recommended to follow up with his PCP in 3-5 days, check K+ levels. Vital Signs/Physical Exam: Physical Exam General: Alert, In no apparent distress, Oriented x3 HEENT: PERRLA, Mucous membr. moist/pink Respiratory: Clear to auscultation bilaterally, Normal air movement Cardiovascular: Regular rate/rhythm, Normal S1 S2 Gastrointestinal: soft, nontender, nondistended Integumentary: No rashes Neurological: Normal gait, Normal speech, Normal strength at 5/5 x4 extr, Normal affect Temp Pulse Resp BP Pulse Ox 97.1 F 70 16 148/62 H 99 11/11/20 12:00 11/11/20 12:00 11/11/20 12:00 11/11/20 12:00 11/11/20 12:00 Laboratory Data at Discharge: WBC 15.20 K/uL (4.3-10.9) H D 11/11/20 04:37 Hgb 15.8 g/dL (13.6-17.9) 11/11/20 04:37 Hct 47.7 % (39.6-49.0) 11/11/20 04:37 Plt Count 192 K/uL (152-406) 11/11/20 04:37 PT 13.2 SECONDS (9.5-12.5) H 11/10/20 11:45 INR 1.15 11/10/20 11:45 APTT 34.7 SECONDS (24.3-36.9) 11/10/20 11:45 Sodium 137 mmol/L (136-145) 11/11/20 04:37 Potassium 3.0 mmol/L (3.5-5.1) L 11/11/20 11:06 BUN 4 mg/dL (7-18) L 11/11/20 04:37 Creatinine 0.64 mg/dL (0.55-1.3) 11/11/20 04:37 Glucose 105 mg/dL (74-106) 11/11/20 04:37 Magnesium 2.0 mg/dL (1.8-2.4) 11/11/20 04:37 Total Bilirubin 1.8 mg/dL (0.2-1.0) H 11/11/20 04:37 AST 21 U/L (15-37) 11/11/20 04:37 ALT 61 U/L (12-78) 11/11/20 04:37 Alkaline Phosphatase 53 U/L (45-117) 11/11/20 04:37 Amylase 30 U/L (25-115) 11/10/20 11:45 Lipase 79 U/L (73-393) 11/10/20 01:01 Home Medications: Ciprofloxacin HCl [Cipro 500 MG Tablet] 500 mg PO BID 12 Days #24 tab 11/11/20 Potassium Chloride [Klor-Con 10] 10 meq PO DAILY 7 Days #7 tablet.er 11/11/20 metroNIDAZOLE [Flagyl] 500 mg PO Q8H 12 Days #36 tablet 11/11/20 New Medications: Ciprofloxacin HCl [Cipro 500 MG Tablet] 500 mg PO BID 12 Days #24 tab metroNIDAZOLE [Flagyl] 500 mg PO Q8H 12 Days #36 tablet Potassium Chloride [Klor-Con 10] 10 meq PO DAILY 7 Days #7 tablet.er Physician Discharge Instructions: You were found to have sigmoid colitis - inflammation/infection of your sigmoid colon. You improved with bowel rest, IV fluids, and antibiotics. You are discharged home with 12 more days of antibiotics. Continue soft diet for 5 more days, then slowly incorporate more regular foods. Follow up with your Primary Care Physician in 3-5 days. You were also found to have low potassium levels, which is likely temporary, and you are discharged with a short prescription for potassium replacement tablets. You were found to be COVID-19 positive. You did not exhibit any symptoms of infection. Recommend another 7 days of self isolation to prevent infecting others. If you develop worsening shortness of breath, please go to nearest ER. Your prescriptions were sent to [facility] in [place]. Be sure to take antibiotics with food. Take full course of antibiotics even if you are feeling better. Okay to discharge home and DC IV. If you have any questions regarding your hospital stay call [phone]. Diet: soft diet Activity: Ad bertrand Followup: NONE,NONE [Primary Care Provider] - Time spent managing pt's care (in minutes): 45
== END 2020-11-11 14:15 | disposition home or self-care (01) | DRG 871 ==
LOC: ER 00:01 → ERHOLD 03:57 → 4TH 08:46 → 3RD-ICU 14:45
PROVIDERS: ADMIT Hospitalist; ATTEND Hospitalist
DX: A41.9 Sepsis, unspecified organism (principal); U07.1 COVID-19; K57.32 Diverticulitis of large intestine without perforation or abscess without bleeding; E87.6 Hypokalemia
CPT/HCPCS: 36415; 71045; 74177; 80048; 80053; 80076; 81003; 82150; 82728; 83605; 83690; 83735; 84132; 85025; 85610; 85730; 86140; 87040; 99285; J0744; J1650; J2270; J2405; J2543; J2930; J3480; J7030; Q9967; U0003

== ENCOUNTER 2021-06-05 08:16 | Emergency (ER) | payer OTHER, SELFPAY ==
--- OUTSIDE RECORDS SUMMARY | 2021-06-05 08:19 | XMS REPORT | Continuity of Care Document ---
:1995 Author Organization [facility] t Address [address] [place] [address] Care Team Providers Name Role Phone Dilan CERVANTES Attending Clinician Problems This patient has no known problems. Allergies, Adverse Reactions, Alerts This patient has no known allergies or adverse reactions. Social History Social Habit Start Date Stop Date Quantity Comments Source Sex Assigned At [facility] Smoking Status Start Date Stop Date Source [facility] Medications Ordered Filled Start Stop Current Ordering Indication Dosage Frequency Signature Comments Components Source Medication Medication Date Date Medication? Clinician (SIG) Name Name ipratropium 2019- No 3mL 3 mL, Univ ers -albuterol 01-11 Inhalation it y of (DUONEB) 14:15: 13:18 , ONCE, 1 [place]unal as 0.5 mg-3 00 :00 dose, Sat Medica l mg(2.5 mg 01/11/19 at Bran ch base)/3 mL 0915, ILYA nebulizer solution 3 mL predniSONE 2019- No 40mg 40 mg, Univ ers (DELTASONE) 01-11 Oral, ity of tablet 40 14:15: 13:31 ONCE, 1 [place] mg 00 :00 dose, Sat Medical 01/11/19 at Branch 0915, ILYA ipratropium 2019- No 3mL 3 mL, Univ ers -albuterol 01-11 Inhalation it y of (DUONEB) 14:15: 13:18 , ONCE, 1 Kunal as 0.5 mg-3 00 :00 dose, Sat Medica l mg(2.5 mg 01/11/19 at Bran ch base)/3 mL 0915, ILYA nebulizer solution 3 mL albuterol Yes [id number] 2{puff} Inhale 2 Univers 90 8-24 Puffs ity of mcg/actuati 00:00: every 4 Kunal as on inhaler 00 (four) Medical hours as Branch needed for Wheezing or Shortness of Breath. loratadine- Yes [id number] 1{tbl} Take 1 Univers pseudoephed 8-24 tablet by ity of rine 00:00: mouth [place] (CLARITIN-D 00 daily. Medica l 24 HOUR) Branch 10-240 mg per 24 hr tablet doxycycline 2019- No [id number] 100mg Take 1 Univers 100 mg 8-24 -04 capsule by ity of capsule 00:00: 04:59 mouth 2 [place] 00 :00 (two) Medical times Branch daily for 10 days. predniSONE 2019- No [id number] 60mg Take 3 Univers 20 mg 8-24 08-30 tablets by ity of tablet 00:00: 04:59 mouth [place] 00 :00 every Medical morning Branch for 5 days. predniSONE 2019- No [id number] 60mg Take 3 Univers 20 mg 8-24 08-24 tablets by ity of tablet 00:00: 00:00 mouth [place] 00 :00 every Medical morning Branch for 5 days. Vital Signs Vital Name Observation Time Observation Value Comments Source Respiratory rate 2019-01-11 13:37:00 20 /min [facility] Oxygen saturation in 2019-01-11 13:37:00 100 /min [facility] Arterial blood by [facility] Pulse oximetry Branch Systolic blood 2019-01-11 12:55:00 159 mm[Hg] [facility] sity pressure [facility] Diastolic blood 2019-01-11 12:55:00 100 mm[Hg] [facility] Heart rate 2019-01-11 12:55:00 66 /min [facility] Body temperature 2019-01-11 12:55:00 36.78 Ela [facility] Body height 2019-01-11 12:55:00 182.9 cm [facility] Body weight 2019-01-11 12:55:00 136.079 kg [facility] BMI 2019-01-11 12:55:00 40.69 kg/m2 [facility] Procedures Procedure Date / Time Performed Performing Clinician [facility] e NOTICE OF PRIVACY 2019-01-11 12:48:47 Doctor Unassigned, No [facility] PRACTICES Name Medical Branch Encounters Start End Encounter Admission Attending Care Care Encounter Source Date/Time Date/Time Type Type Clinicians Facility Department ID 2019-01-11 2019-01-[address] [facility] [id number] [facility] 07:57:51 08:50:00 Ronal Magaña [id number] i Gabino [id number] [facility] [id number] [facility] 084 Branch Results This patient has no known results.
[2021-06-05] MEDS ORDERED: HYDROCODONE/APAP 10/325 TAB ONE (10:15)
[2021-06-05] MEDS ORDERED: PEN G BENZ LA 1.2MU/2ML SYRINGE IM ONE (10:15)
[2021-06-05 11:03] LABS: SARS-COV-2 RT PCR NEGATIVE (NEGATIVE)
--- NOTE | 2021-06-05 11:16 | EDPHYS ---
Physician Documentation [facility] Name: Kathe oCtto Age: 26 yrs Sex: Male : 1995 Arrival Date: 06/05/2021 Time: 08:19 Bed 10 Private MD: ED Physician Denver Tomlin HPI: 06/05 09:27 This 26 yrs old Male presents to ER via Ambulatory with complaints of Sore kdr Throat. 09:27 The patient presents with sore throat, dysphagia, of both solids and liquids. The kdr patient describes throat pain as constant, raw. Onset: The symptoms/episode began/occurred gradually, 2 day(s) ago. Severity of symptoms: At their worst the symptoms were moderate, severe, just prior to arrival, in the emergency department the symptoms are unchanged. Modifying factors: The symptoms are alleviated by nothing, the symptoms are aggravated by fluids, foods, swallowing. Associated signs and symptoms: The patient has no apparent associated signs or symptoms. The patient has not experienced similar symptoms in the past. The patient has been recently seen by a physician:. Patient presents with 2 days of sore throat. He was seen previously at [facility] and given antibiotics but was not able to fill the prescription. Now he states his sore throat is worse and he can barely talk.. Historical: - Allergies: 09:07 No Known Allergies; iw - Home Meds: 09:07 None [Active]; iw - PMHx: 09:07 Hypertension; intussusception; iw - Immunization history:: Client reports receiving the Star \\T\\ Star single-dose vaccine. - Social history:: Smoking status: Patient reports the use of cigarette tobacco products. ROS: 09:27 Constitutional: Negative for fever, chills, and weight loss, Eyes: Negative for injury, kdr pain, redness, and discharge, Neck: Negative for injury, pain, and swelling, Cardiovascular: Negative for chest pain, palpitations, and edema, Respiratory: Negative for shortness of breath, cough, wheezing, and pleuritic chest pain, Abdomen/GI: Negative for abdominal pain, nausea, vomiting, diarrhea, and constipation, Back: Negative for injury and pain, : Negative for injury, bleeding, discharge, and swelling, MS/Extremity: Negative for injury and deformity, Skin: Negative for injury, rash, and discoloration, Neuro: Negative for headache, weakness, numbness, tingling, and seizure activity. Psych: Negative for depression, anxiety, suicide ideation, homicidal ideation, and hallucinations, Allergy/Immunology: Negative for hives, rash, and allergies, Endocrine: Negative for neck swelling, polydipsia, polyuria, polyphagia, and marked weight changes, Hematologic/Lymphatic: Negative for swollen nodes, abnormal bleeding, and unusual bruising. 09:27 ENT: Positive for difficulty swallowing, Voice is slightly muffled but no trismus. Exam: 09:27 Constitutional: This is a well developed, well nourished patient who is awake, alert, kdr and in no acute distress. Head/Face: Normocephalic, atraumatic. Eyes: Pupils equal round and reactive to light, extra-ocular motions intact. Lids and lashes normal. Conjunctiva and sclera are non-icteric and not injected. Cornea within normal limits. Periorbital areas with no swelling, redness, or edema. Neck: Trachea midline, no thyromegaly or masses palpated, and no cervical lymphadenopathy. Supple, full range of motion without nuchal rigidity, or vertebral point tenderness. No Meningismus. Chest/axilla: Normal chest wall appearance and motion. Nontender with no deformity. No lesions are appreciated. Cardiovascular: Regular rate and rhythm with a normal S1 and S2. No gallops, murmurs, or rubs. Normal PMI, no JVD. No pulse deficits. Respiratory: Lungs have equal breath sounds bilaterally, clear to auscultation and percussion. No rales, rhonchi or wheezes noted. No increased work of breathing, no retractions or nasal flaring. Abdomen/GI: Soft, non-tender, with normal bowel sounds. No distension or tympany. No guarding or rebound. No evidence of tenderness throughout. Back: No spinal tenderness. No costovertebral tenderness. Full range of motion. Skin: Warm, dry with normal turgor. Normal color with no rashes, no lesions, and no evidence of cellulitis. :27 ENT: Mouth: Lips: normal, Oral mucosa: normal, drooling, is not appreciated, Posterior pharynx: Airway: no evidence of obstruction, patent, Tonsils: bilaterally enlarged, with erythema, no exudate, no ulcerations, Uvula: midline, swelling, that is moderate, erythema, that is mild, exudate, is not appreciated, peritonsillar mass, is not appreciated, pooling of secretions, is not appreciated. Vital Signs: 09:04 BP 181 / 100; Pulse 85; Resp 16; Temp 98.9; Pulse Ox 100% on R/A; Weight 154.22 kg; iw Height 6 ft. 1 in. (185.42 cm); 09:04 Body Mass Index 44.86 (154.22 kg, 185.42 cm) iw MDM: 09:27 Data reviewed: vital signs, nurses notes, lab test result(s), radiologic studies. kdr Counseling: I had a detailed discussion with the patient and/or guardian regarding: the historical points, exam findings, and any diagnostic results supporting the discharge/admit diagnosis, lab results. 11:16 Patient medically screened. kdr 11:19 ED course: Patient was moderately improved with the interventions given. He was happy kdr with the care provided and the plan for discharge and follow-up. He was not toxic appearing or ill in any way at time of discharge.. 06/05 09:08 Order name: Strep; Complete Time: 10:43 iw 06/05 09:24 Order name: COVID-19/FLU A+B (Document "Date of Onset" if Symptomatic) kdr 06/05 09:25 Order name: COVID-19/FLU A+B; Complete Time: 11:12 EDMS 06/05 09:38 Order name: Throat Culture EDMS Administered Medications: 10:19 Drug: [place] (HYDROcodone-acetaminophen) 10 mg-325 mg 1 tabs Route: PO; iw 10:30 Follow up: Response: No adverse reaction iw 10:19 Drug: Bicillin L-A (penicillin G Benzathine) 1.2 million units Route: IM; Site: left iw gluteus; 10:30 Follow up: Response: No adverse reaction iw Disposition Summary: 06/05/21 11:16 Discharge Ordered Location: Home kdr Problem: new kdr Symptoms: have improved kdr Condition: Stable kdr Diagnosis - Acute laryngopharyngitis kdr Followup: kdr - With: Private Physician - When: 2 - 3 days - Reason: If symptoms return, Further diagnostic work-up, Recheck today's complaints, Continuance of care, Re-evaluation by your physician Discharge Instructions: - Discharge Summary Sheet kdr - Laryngitis kdr - Sore Throat, [id number] kdr Forms: - Medication Reconciliation Form kdr - Thank You Letter kdr Prescriptions: - Ibuprofen 800 mg Oral Tablet - take 1 tablet by ORAL route every 8 hours As needed take with food; 30 tablet; kdr Refills: 0, Product Selection Permitted - Pepcid 20 mg Oral Tablet - take 1 tablet by ORAL route once daily; 20 tablet; Refills: 0, Product kdr Selection Permitted Signatures: Dispatcher [employer] Denver Celeste MD MD kdr Daphne Morales RN RN iw
--- NOTE | 2021-06-05 11:16 | ER ---
Nurse's Notes [facility] Name: Kathe Cotto Age: 26 yrs Sex: Male : 1995 Arrival Date: 06/05/2021 Time: 08:19 Bed 10 Private MD: Diagnosis: Acute laryngopharyngitis Presentation: 06/05 09:04 Chief complaint: Patient states: sore throat X 2 days, was seen at [place] and was given iw abx but has not been able to get it, now throat is worse , can barely talk. Coronavirus screen: Client presents with at least one sign or symptom that may indicate coronavirus-19. Ebola Screen: Patient negative for fever greater than or equal to 101.5 degrees Fahrenheit, and additional compatible Ebola Virus Disease symptoms Patient denies exposure to infectious person. Patient denies travel to an Ebola-affected area in the 21 days before illness onset. No symptoms or risks identified at this time. Initial Sepsis Screen: Does the patient meet any 2 criteria? No. Patient's initial sepsis screen is negative. Does the patient have a suspected source of infection? No. Patient's initial sepsis screen is negative. Risk Assessment: Do you want to hurt yourself or someone else? Patient reports no desire to harm self or others. Onset of symptoms was June 03, 2021. 09:04 Method Of Arrival: Ambulatory iw 09:04 Acuity: ISAAC 3 iw Triage Assessment: 11:32 General: Appears in no apparent distress. Behavior is calm, cooperative. iw Historical: - Allergies: 09:07 No Known Allergies; iw - Home Meds: 09:07 None [Active]; iw - PMHx: 09:07 Hypertension; intussusception; iw - Immunization history:: Client reports receiving the Star \\T\\ Star single-dose vaccine. - Social history:: Smoking status: Patient reports the use of cigarette tobacco products. Screenin:32 Abuse screen: Denies threats or abuse. Denies injuries from another. Nutritional iw screening: No deficits noted. Tuberculosis screening: No symptoms or risk factors identified. Fall Risk None identified. Assessment: 10:00 General: Appears in no apparent distress. Behavior is calm, cooperative. Pain: iw Complains of pain in throat. Neuro: Level of Consciousness is awake, alert, obeys commands, Oriented to person, place, time, situation, Moves all extremities. Cardiovascular: Patient's skin is warm and dry. Respiratory: Airway is patent Respiratory effort is even, unlabored, Breath sounds are clear bilaterally. EENT: Throat is reddened has enlarged tonsils. Derm: Skin is intact, is healthy with good turgor. Musculoskeletal: Range of motion: intact in all extremities. Vital Signs: 09:04 BP 181 / 100; Pulse 85; Resp 16; Temp 98.9; Pulse Ox 100% on R/A; Weight 154.22 kg; iw Height 6 ft. 1 in. (185.42 cm); 09:04 Body Mass Index 44.86 (154.22 kg, 185.42 cm) iw ED Course: 08:19 Patient arrived in ED. ds1 08:51 Denver Tomlin MD is Attending Physician. kdr 09:07 Triage completed. iw 09:08 Arm band placed on. iw 09:29 COVID-19/FLU A+B (Document "Date of Onset" if Symptomatic) Sent. iw 09:29 COVID-19/FLU A+B Sent. iw 09:29 Strep Sent. iw 10:00 Patient has correct armband on for positive identification. iw 10:08 Daphne Morales, RN is Primary Nurse. iw 11:32 No provider procedures requiring assistance completed. Patient did not have IV access iw during this emergency room visit. Administered Medications: 10:19 Drug: [place] (HYDROcodone-acetaminophen) 10 mg-325 mg 1 tabs Route: PO; iw 10:30 Follow up: Response: No adverse reaction iw 10:19 Drug: Bicillin L-A (penicillin G Benzathine) 1.2 million units Route: IM; Site: left iw gluteus; 10:30 Follow up: Response: No adverse reaction iw Outcome: 11:16 Discharge ordered by . kdr 11:32 Discharged to home iw 11:32 Condition: good 11:32 Discharge instructions given to patient, Instructed on discharge instructions, follow up and referral plans. Demonstrated understanding of instructions, follow-up care, medications. 11:33 Patient left the ED. iw Signatures: Denver Tomlin MD MD [facility] [place] ds1 Daphne Morales, RN RN iw
[2021-06-05 11:40] VITALS: BP 181/100; TEMP 98.9; O2SAT 100
== END 2021-06-05 11:33 | disposition home or self-care (01) ==
LOC: ER 08:16
DX: J06.0 Acute laryngopharyngitis (principal); Z20.822 Contact with and (suspected) exposure to COVID-19
CPT/HCPCS: 0240U; 87070; 87081; 96372; 99283; J0561

== ENCOUNTER 2022-05-16 06:17 | Emergency (ER) | payer SELFPAY ==
--- OUTSIDE RECORDS SUMMARY | 2022-05-16 06:24 | XMS REPORT | Continuity of Care Document ---
:1995 Author Organization [facility] t Address [address] [place] [address] Care Team Providers Name Role Phone Pcp, Patient Does Not Have A Primary Care Physician [phone] Jeanna CERVANTES, Sendil K.H. Attending Clinician ALEX MEEKS K.H. Attending Clinician Unavailable Doctor Unassigned, [place] Attending Clinician Unavailable Ronal Kong MD Attending Clinician Problems Condition Condition Condition Status Onset Resolution Last Treating Co mments Source Name Details Category Date Date Treatment Clinician Date No known No known Disease Unive rs active active ity of problems problems [facility] Allergies, Adverse Reactions, Alerts Allergy Allergy Status Severity Reaction(s) Onset Inactive Treating Comm ents Source Name Type Date Date Clinician NO KNOWN Drug Active Univers ALLERGIE Class ity of S [facility] Social History Social Habit Start Date Stop Date Quantity Comments Source Exposure to Not sure University of SARS-CoV-2 [facility] (event) Branch History of Smokes tobacco University of tobacco use daily [facility] Tobacco use and 2021-08-22 2021-08-22 Smokeless tobacco Un iversity of exposure 00:00:00 00:00:00 non-user [facility] Sex Assigned At [birth year] Universit y of 00:00:00 00:00:00 [facility] Smoking Status Start Date Stop Date Source Smokes tobacco daily 2021-08-22 00:00:00 [facility]ations Ordered Filled Start Stop Current Ordering Indication Dosage Frequency Signature Comments Components Source Medication Medication Date Date Medication? Clinician (SIG) Name Name AMLODIPINE Yes [id number] TAKE 1 U nivers 5 mg tablet 7-20 TABLET BY ity of 00:00: MOUTH [place] 00 TWICE A Medical DAY Branch amLODIPine Yes [id number] 5mg Take 1 U nivers 5 mg tablet 4-04 tablet by ity of 00:00: [facility] 2 [place] 00 (two) Medical times Branch daily. amLODIPine [id number] 5mg Take 1 Univers 5 mg tablet 4-04 07-20 tablet by it y of 00:00: 00:00 [facility] 2 [place] 00 :00 (two) Medical times Branch daily. albuterol Yes [id number] 2{puff} Inhale 2 Univers 90 8-24 Puffs ity of mcg/actuati 00:00: every 4 [place] as on inhaler 00 (four) Medical hours as Branch needed for Wheezing or Shortness of Breath. loratadine- Yes [id number] 1{tbl} Take 1 Univers pseudoephed 8-24 tablet by ity of rine 00:00: mouth [place] (CLARITIN-D 00 daily. Medica l 24 HOUR) Branch 10-240 mg per 24 hr tablet albuterol Yes [id number] 2{puff} Inhale 2 Univers 90 8-24 Puffs ity of mcg/actuati 00:00: every 4 Kunal as on inhaler 00 (four) Medical hours as Branch needed for Wheezing or Shortness of Breath. loratadine- Yes [id number] 1{tbl} Take 1 Univers pseudoephed 8-24 tablet by ity of rine 00:00: mouth [place] (CLARITIN-D 00 daily. Medica l 24 HOUR) Branch 10-240 mg per 24 hr tablet Vital Signs Vital Name Observation Time Observation Value Comments Source Systolic blood 2021-08-22 15:26:00 175 mm[Hg] Univer sity of pressure [facility] Diastolic blood 2021-08-22 15:26:00 123 mm[Hg] Unive rsity of pressure [facility] Heart rate 2021-08-22 15:26:00 84 /min [facility] Respiratory rate 2021-08-22 15:19:00 19 /min Univ ersity of [facility] Body height 2021-08-22 15:19:00 182.9 cm [facility] Body weight 2021-08-22 15:19:00 154.223 kg [facility] BMI 2021-08-22 15:19:00 46.11 kg/m2 [facility] Oxygen saturation in 2021-08-22 15:19:00 94 /min [facility] Arterial blood by [facility] Pulse oximetry Branch Procedures This patient has no known procedures. Encounters Start End Encounter Admission Attending Care Care Encounter Source Date/Time Date/Time Type Type Clinicians Facility Department ID 2021-12-07 2021-12-07 [facility] [id number] Univers 00:00:00 00:00:00 Alex MAGAÑA [id number] iteliazar [facility] [id number] Keven lockhart PROFESSIO [id number] Nd dical NAL 059 [facility] 2021-08-22 2021-08-22 Outpatient R JEANNA [facility] [id number] Univers 10:00:00 10:53:23 SENDIL goran [facility] 2021-08-22 2021-08-22 [facility] [id number] Univers 10:00:00 10:53:23 Visit Alex MAGAÑA [id number] iteliazar [facility] [id number] Keven lockhart PROFESSIO [id number] Nd dical NAL 059 [facility] 2021-08-22 2021-08-[address] [id number] Univers 10:00:00 10:53:23 SENDIL goran [facility] 2021-08-22 2021-08-22 Orders Doctor ENOCH [id number] Univers 00:00:00 00:00:00 Only Unassigned, PAOLA [id number] ity of [place] [facility] [id number] [facility] [id number] [facility] 009 Branch 2019-01-11 2019-01-11 Emergency Kong, [facility] [id number] Univers 07:57:51 08:50:00 Ronal Magaña [id number] i ty of [place] [id number] [facility] [phone] [facility] 084 Branch Results This patient has no known results.
[2022-05-16 07:09] LABS: Absolute Lymphocytes (CBC) 2.7 K/uL (0.7-4.9); Hematocrit 50.3 % (39.6-49.0); MCV 82.2 fL (80-100); MPV 7.6 fL (7.6-11.3); RBC Red Blood Cell Count 6.11 M/uL (4.33-5.43)
[2022-05-16 07:20] LABS: Potassium 3.1 mmol/L (3.5-5.1)
[2022-05-16] MEDS ORDERED: CEFTRIAXONE 1000 MG/VIAL ONE ×2 (07:35→08:09)
[2022-05-16] MEDS ORDERED: CLINDAMYCIN 900MG/D5W 900 MG/50 ML IVPB IV ONE (07:35)
[2022-05-16] MEDS ORDERED: dexAMETHasone 10 MG/ML VIAL ONE ×2 (07:35→09:06)
[2022-05-16] MEDS ORDERED: NA CHLORIDE 0.9% 1,000 ML ONE (07:36)
[2022-05-16 07:41] LABS: SARS-COV-2 RT PCR NEGATIVE (NEGATIVE)
[2022-05-16] MEDS ORDERED: NA CHLORIDE 0.9% 100 ML IV ONE (08:09)
--- NOTE | 2022-05-16 08:38 | ER ---
Nurse's Notes [facility] Name: Kathe Cotto Age: 26 yrs Sex: Male : 1995 Arrival Date: 05/16/2022 Time: 06:22 Bed 7 Private MD: Diagnosis: Acute tonsillitis, unspecified;Peritonsillar abscess;Elevated white blood cell count;Essential (primary) hypertension Presentation: 05/16 06:36 Chief complaint: Patient states: I have had a soar throat for the past day and have jb4 been having a hard time swallowing. Coronavirus screen: At this time, the client does not indicate any symptoms associated with coronavirus-19. Ebola Screen: No symptoms or risks identified at this time. Initial Sepsis Screen: Does the patient meet any 2 criteria? No. Patient's initial sepsis screen is negative. Does the patient have a suspected source of infection? No. Patient's initial sepsis screen is negative. Risk Assessment: Do you want to hurt yourself or someone else? Patient reports no desire to harm self or others. Onset of symptoms was May 15, 2022. Transition of care: patient was not received from another setting of care. 06:36 Method Of Arrival: Ambulatory jb4 06:36 Acuity: ISAAC 3 jb4 Triage Assessment: 06:38 General: Appears in no apparent distress. uncomfortable, Behavior is calm, cooperative, jb4 appropriate for age. Pain: Complains of pain in left aspect of posterior pharynx and right aspect of posterior pharynx Pain does not radiate. Pain currently is 10 out of 10 on a pain scale. EENT: Throat is reddened has enlarged tonsils bilaterally. Neuro: Level of Consciousness is awake, alert, obeys commands, Oriented to person, place, time, situation. Cardiovascular: Patient's skin is warm and dry. Respiratory: Airway is patent Respiratory effort is even, unlabored, Respiratory pattern is regular, symmetrical. GI: No signs and/or symptoms were reported involving the gastrointestinal system. : Derm: Skin is intact, Skin is pink, warm \T\ dry. Musculoskeletal: Circulation, motion, and sensation intact. Range of motion: intact in all extremities. Historical: - Allergies: 06:38 No Known Allergies; jb4 - Home Meds: 06:38 None [Active]; jb4 - PMHx: 06:38 Hypertension; intussusception; jb4 - PSHx: 06:38 Appendectomy; jb4 - Immunization history:: Adult Immunizations up to date. - Social history:: Smoking status: Patient denies any tobacco usage or history of. - Family history:: not pertinent. - Hospitalizations: : No recent hospitalization is reported. Screenin:39 [facility] ED Fall Risk Assessment (Adult) History of falling in the last 3 months, jb4 including since admission No falls in past 3 months (0 pts) Confusion or Disorientation No (0 pts) Intoxicated or Sedated No (0 pts) Impaired Gait No (0 pts) Mobility Assist Device Used No (0 pt) Altered Elimination No (0 pt) Score/Fall Risk Level 0 - 2 = Low Risk Oriented to surroundings, Maintained a safe environment. Abuse screen: Denies threats or abuse. Nutritional screening: No deficits noted. Tuberculosis screening: No symptoms or risk factors identified. Assessment: 06:39 General: see triage note. jb4 08:32 Reassessment: Patient appears in no apparent distress at this time. Patient and/or iw family updated on plan of care and expected duration. Pain level reassessed. Patient is alert, oriented x 3, equal unlabored respirations, skin warm/dry/pink. 09:18 Respiratory: Airway is patent Breath sounds are clear. Vital Signs: 06:35 BP 180 / 119 LA Sitting (auto/lg); Pulse 90; Resp 18 S; Temp 98.2(O); Pulse Ox 98% on mb4 R/A; 06:36 BP 180 / 119; Pulse 93; Resp 18; Temp 98.2(O); Pulse Ox 98% on R/A; Weight 136.08 kg jb4 (R); Height 6 ft. 0 in. (182.88 cm) (R); Pain 10/10; 08:32 BP 160 / 113; Pulse 88; Resp 16; Pulse Ox 97% on R/A; iw 08:37 BP 167 / 103; iw 06:36 Body Mass Index 40.69 (136.08 kg, 182.88 cm) jb4 ED Course: 06:22 Patient arrived in ED. ja2 06:34 Gentry Hansen MD is Attending Physician. rn 06:36 Joey Whipple RN is Primary Nurse. jb4 06:38 Triage completed. jb4 06:38 Arm band placed on right wrist. jb4 06:58 Inserted saline lock: in right forearm, using aseptic technique. Blood collected. ds4 07:06 Attending Physician role handed off by Gentry Hansen MD [facility] 07:06 Jevon Hunt MD is Attending Physician. christa 07:55 CT Soft Tissue Neck W/contr In Process Unspecified. EDAK 08:37 Hannah Gomez MD is Referral Physician. christa 09:18 No provider procedures requiring assistance completed. IV discontinued, intact, iw bleeding controlled, No redness/swelling at site. Pressure dressing applied. Administered Medications: 07:48 Drug: Decadron - Dexamethasone 10 mg Route: IVP; Site: right antecubital; iw 08:32 Drug: NS 0.9% 1000 ml Route: IV; Rate: 1 bolus; Site: right antecubital; iw 08:32 Drug: Clindamycin 900 mg Route: IVPB; Infused Over: 30 mins; Site: right antecubital; iw 08:55 Drug: Rocephin (cefTRIAXone) 2 grams Route: IV; Rate: per protocol; Site: right iw antecubital; 09:08 Drug: Decadron - Dexamethasone 10 mg Route: IVP; Site: right antecubital; iw 09:09 Drug: Clindamycin 300 mg Route: PO; iw 09:09 Drug: Norvasc (amlodipine) 10 mg Route: PO; iw 09:09 Drug: [place] (HYDROcodone-acetaminophen) 10 mg-325 mg 1 tabs Route: PO; iw Medication: 09:18 VIS not applicable for this client. iw Outcome: 08:37 Discharge ordered by . christa 09:18 Discharged to home ambulatory, with family. iw 09:18 Condition: good 09:18 Discharge instructions given to patient, family, Instructed on discharge instructions, follow up and referral plans. medication usage, Demonstrated understanding of instructions, follow-up care, medications, Prescriptions given X 4. 09:18 Patient left the ED. iw Signatures: Dispatcher [employer] EDMS Jevon Hunt MD MD cha Williams, Irene, RN RN iw Gentry Hansen MD MD rn Swanson, Donovan ds4 Joey Whipple RN RN jb4 Jennifer Miranda mb4 Martha Mathis
--- NOTE | 2022-05-16 08:39 | EDPHYS ---
Physician Documentation [facility] Name: Kathe Cotto Age: 26 yrs Sex: Male : 1995 Arrival Date: 05/16/2022 Time: 06:22 Bed 7 Private MD: ROBBIE Physician Jevon Hunt HPI: 05/16 07:04 This 26 yrs old Male presents to ER via Ambulatory with complaints of Sore rn Throat. 07:04 The patient presents with sore throat. The patient describes throat pain as pain with rn swallowing. Onset: The symptoms/episode began/occurred yesterday. Severity of symptoms: At their worst the symptoms were moderate, in the emergency department the symptoms are unchanged. Modifying factors: The symptoms are alleviated by nothing, the symptoms are aggravated by swallowing. Associated signs and symptoms: Pertinent negatives sore throat. The patient has not experienced similar symptoms in the past. The patient has not recently seen a physician. Historical: - Allergies: 06:38 No Known Allergies; jb4 - Home Meds: 06:38 None [Active]; jb4 - PMHx: 06:38 Hypertension; intussusception; jb4 - PSHx: 06:38 Appendectomy; jb4 - Immunization history:: Adult Immunizations up to date. - Social history:: Smoking status: Patient denies any tobacco usage or history of. - Family history:: not pertinent. - Hospitalizations: : No recent hospitalization is reported. ROS: 07:04 Constitutional: Negative for fever, chills, and weight loss, ENT: + sore throat and rn pain with swallowing Cardiovascular: Negative for chest pain, palpitations, and edema, Respiratory: Negative for shortness of breath, cough, wheezing, and pleuritic chest pain, Abdomen/GI: Negative for abdominal pain, nausea, vomiting, diarrhea, and constipation, MS/Extremity: Negative for injury and deformity, Skin: Negative for injury, rash, and discoloration, Neuro: Negative for headache, weakness, numbness, tingling, and seizure. Exam: 07:04 Constitutional: This is a well developed, well nourished patient who is awake, alert, rn and in no acute distress. Head/Face: Normocephalic, atraumatic. ENT: + tonsillar hypertrophy, no exudate, no stridor Cardiovascular: Regular rate and rhythm. No pulse deficits. Respiratory: No increased work of breathing, no retractions or nasal flaring. Vital Signs: 06:35 BP 180 / 119 LA Sitting (auto/lg); Pulse 90; Resp 18 S; Temp 98.2(O); Pulse Ox 98% on mb4 R/A; 06:36 BP 180 / 119; Pulse 93; Resp 18; Temp 98.2(O); Pulse Ox 98% on R/A; Weight 136.08 kg jb4 (R); Height 6 ft. 0 in. (182.88 cm) (R); Pain 10/10; 08:32 BP 160 / 113; Pulse 88; Resp 16; Pulse Ox 97% on R/A; iw 08:37 BP 167 / 103; iw 06:36 Body Mass Index 40.69 (136.08 kg, 182.88 cm) jb4 MDM: 06:34 Patient medically screened. rn 08:59 Differential diagnosis: cocksackie virus, echovirus infection, epiglottitis, christa gingivostomatitis, group A strep tonsillitis, influenza, lymphoma, pharyngitis, tonsillitis, upper respiratory infection, uvulitis, viral syndrome. Data reviewed: vital signs, nurses notes, lab test result(s). Data interpreted: grain scooper: rate is 88 beats/min, rhythm is regular, Pulse oximetry: on room air is 97 %. Test interpretation: by ED physician or midlevel provider:. Counseling: I had a detailed discussion with the patient and/or guardian regarding: the historical points, exam findings, and any diagnostic results supporting the discharge/admit diagnosis, the presence of at least one elevated blood pressure reading (>120/80) during this emergency department visit, lab results, radiology results, the need for outpatient follow up, for definitive care, an ENT specialist, a family practitioner. 05/16 06:34 Order name: COVID-19/FLU A+B; Complete Time: 08:12 rn 05/16 06:34 Order name: Strep; Complete Time: 08:12 rn 05/16 06:45 Order name: CBC with Diff; Complete Time: 08:12 rn 05/16 06:45 Order name: Basic Metabolic Panel; Complete Time: 08:12 rn 05/16 06:45 Order name: CT Soft Tissue Neck W/contr rn 05/16 07:22 Order name: Throat Culture EDMS 05/16 06:45 Order name: IV Start; Complete Time: 06:57 rn 05/16 08:32 Order name: PO challenge; Complete Time: 09:09 christa Administered Medications: 07:48 Drug: Decadron - Dexamethasone 10 mg Route: IVP; Site: right antecubital; iw 08:32 Drug: NS 0.9% 1000 ml Route: IV; Rate: 1 bolus; Site: right antecubital; iw 08:32 Drug: Clindamycin 900 mg Route: IVPB; Infused Over: 30 mins; Site: right antecubital; iw 08:55 Drug: Rocephin (cefTRIAXone) 2 grams Route: IV; Rate: per protocol; Site: right iw antecubital; 09:08 Drug: Decadron - Dexamethasone 10 mg Route: IVP; Site: right antecubital; iw 09:09 Drug: Clindamycin 300 mg Route: PO; iw 09:09 Drug: Norvasc (amlodipine) 10 mg Route: PO; iw 09:09 Drug: [place] (HYDROcodone-acetaminophen) 10 mg-325 mg 1 tabs Route: PO; iw Disposition Summary: 05/16/22 08:37 Discharge Ordered Location: Home christa Problem: new christa Symptoms: have improved christa Condition: Stable christa Diagnosis - Acute tonsillitis, unspecified christa - Peritonsillar abscess christa - Elevated white blood cell count christa - Essential (primary) hypertension christa Followup: christa - With: Private Physician - When: 2 - 3 days - Reason: Recheck today's complaints, Continuance of care, Re-evaluation by your physician Followup: christa - With: - When: 1 - 2 days - Reason: Recheck today's complaints, Re-evaluation by your physician Discharge Instructions: - Discharge Summary Sheet christa - Hypertension, Adult christa - Peritonsillar Abscess christa - Tonsillitis christa - Tonsillitis, [id number] christa - Hypertension, Adult, [id number] christa - Pharyngitis, [id number] christa - How to Take Your Blood Pressure, Kzfl-xy-Ccod christa - Peritonsillar Abscess, [id number]-[id number] christa - Peritonsillar Cellulitis christa - Managing Your Hypertension christa Forms: - Medication Reconciliation Form christa - Thank You Letter christa - Antibiotic Education christa - Prescription Opioid Use christa Prescriptions: - Clindamycin HCl 300 mg Oral Capsule - take 1 capsule by ORAL route every 6 hours for 10 days; 40 capsule; Refills: 0, [facility] Product Selection Permitted - Decadron 4 mg Oral tablet - take 1 tablet by ORAL route 2 times per day; 4 tablet; Refills: 0, Product christa Selection Permitted - Norvasc 5 mg Oral Tablet - take 1 tablet by ORAL route once daily; 20 tablet; Refills: 0, Product christa Selection Permitted - Hydrochlorothiazide 12.5 mg Oral Tablet - take 1 tablet by ORAL route once daily; 30 tablet; Refills: 0, Product christa Selection Permitted Signatures: Dispatcher [employer] EDJevon Iglesias MD MD cha Williams, Irene, RN RN iw Nieto, Roman, MD MD rn Bryson, James RN RN jb4
--- NOTE | 2022-05-16 08:43 | RAD REPORT ---
EXAM DESCRIPTION: CT - Soft Tissue Neck W/Contr CLINICAL HISTORY: peritonsillar abscess Neck pain and swelling COMPARISON: No comparisons TECHNIQUE All CT scans are performed using dose optimization technique as appropriate and may includ e automated exposure control or mA/KV adjustment according to patient size. FINDINGS: Enlargement of the lingual and prominent teen tonsils is noted. No evidence of peritonsillar abscess. Bilateral with mildly enlarged jugulodigastric chain lymph nodes are seen suggesting reactive adeniti s. Paranasal sinuses and mastoids are essentially clear. IMPRESSION: Tonsillar enlargement is present without peritonsillar abscess.
[2022-05-16] MEDS ORDERED: HYDROCODONE/APAP 10/325 TAB ONE (09:05)
[2022-05-16] MEDS ORDERED: AMLODIPINE 10 MG TAB ONE (09:05)
[2022-05-16 09:32] VITALS: TEMP 98.2
[2022-05-16 09:41] VITALS: O2SAT 97
[2022-05-16 09:46] VITALS: BP 167/103
== END 2022-05-16 09:18 | disposition home or self-care (01) ==
LOC: ER 06:17
DX: J03.90 Acute tonsillitis, unspecified (principal); D72.829 Elevated white blood cell count, unspecified; I10 Essential (primary) hypertension; Z20.822 Contact with and (suspected) exposure to COVID-19
CPT/HCPCS: 0240U; 36415; 70491; 80048; 85025; 87070; 87081; 96374; 96375; 99284; J1100; J7030; Q9967

== ENCOUNTER 2022-11-05 20:42 | Emergency (ER) | payer SELFPAY ==
--- OUTSIDE RECORDS SUMMARY | 2022-11-05 20:45 | XMS REPORT | Continuity of Care Document ---
:1995 Author Organization [facility] t Address [address] [place] [address] Care Team Providers Name Role Phone PCP, PATIENT DOES NOT HAVE A Primary Care Physician Unavaila ble Yusra SERVIN Attending Clinician Unavailable Catarino Delgado MD Attending Clinician Yusra Hall Attending Clinician Cabrera CERVANTES, Violeta K.H. Attending Clinician VIOLETA MEEKS K.H. Attending Clinician Unavailable Doctor Unassigned, [place] Attending Clinician Unavailable Ronal Kong MD Attending Clinician Yusra SERVIN Admitting Clinician Unavailable Problems Condition Condition Condition Status Onset Resolution Last Treating Co mments Source Name Details Category Date Date Treatment Clinician Date No known No known Disease Unive rs active active ity of problems problems [facility] Allergies, Adverse Reactions, Alerts Allergy Allergy Status Severity Reaction(s) Onset Inactive Treating Comm ents Source Name Type Date Date Clinician NO KNOWN Drug Active Univers ALLERGIE Class ity of S [facility] Social History Social Habit Start Date Stop Date Quantity Comments Source Exposure to Not sure [facility] SARS-CoV-2 [place] [facility] (event) Branch History of Smokes tobacco University of tobacco use daily [facility] Tobacco use and 2021-08-22 2021-08-22 Smokeless tobacco Un iversity of exposure 00:00:00 00:00:00 non-user [facility] Sex Assigned [birth year] Universit y of 00:00:00 00:00:00 [facility] Smoking Status Start Date Stop Date Source Smokes tobacco daily 2021-08-22 00:00:00 Univers ity of [facility] Medications Ordered Filled Start Stop Current Ordering Indication Dosage Frequency Signature Comments Components Source Medication Medication Date Date Medication? Clinician (SIG) Name Name amLODIPine Yes 5mg 5 mg, Univer s (NORVASC) 6-09 Oral, ity of tablet 5 mg 14:00: [place] Medical [place] 10/27/22 at 0900, Until Discontinu ed, Routine hydralAZINE 2022- No 10mg 10 mg, Uni vers (APRESOLINE 10-26 Slow IV ity of ) injection 19:30: 19:33 [place] 10 mg 00 :00 ONCE, 1 Medical dose, On Branch [facility] 10/26/22 at 1430, ILYA hydralAZINE 2022-2022- No 10mg 10 mg, Uni vers (APRESOLINE 10-26 Slow IV ity of ) injection 19:00: 18:53 [place] 10 mg 00 :00 ONCE, 1 Medical dose, On Branch [facility] 10/26/22 at 1400, ILYA iopamidol 2022- No [id number] 100mL 100 mL, Univers (ISOVUE 10-26 Intravenou ity o f 370-500 mL) 17:45: 17:45 s, ONCE, 1 [place] injection 00 :00 dose, On Medica l 100 mL [facility] 10/26/22 Branch at 1245, Routine amLODIPine Yes [id number] 5mg Take 1 U nivers 5 mg tablet 6-08 tablet by ity of 00:00: mouth at [place] 00 bedtime. Medical Branch AMLODIPINE Yes [id number] TAKE 1 U nivers 5 mg tablet 7-20 TABLET BY ity of 00:00: MOUTH [place] 00 TWICE A Medical DAY Branch AMLODIPINE 2021-0 Yes [id number] TAKE 1 U nivers 5 mg tablet 7-20 TABLET BY ity of 00:00: MOUTH [place] 00 TWICE A Medical DAY Branch amLODIPine 2021-0 Yes [id number] 5mg Take 1 U nivers 5 mg tablet 4-04 tablet by ity of 00:00: mouth 2 [place] 00 (two) Medical times Branch daily. amLODIPine 0 2021- No [id number] 5mg Take 1 Univers 5 mg tablet 4-04 07-20 tablet by it y of 00:00: 00:00 mouth 2 [place] 00 :00 (two) Medical times Branch daily. albuterol Yes [id number] 2{puff} Inhale 2 Univers 90 8-24 Puffs ity of mcg/actuati 00:00: every 4 [place] as on inhaler 00 (four) Medical hours as Branch needed for Wheezing or Shortness of Breath. loratadine- Yes [id number] 1{tbl} Take 1 Univers pseudoephed 8-24 tablet by ity of rine 00:00: mouth [place] (CLARITIN-D 00 daily. Medica l 24 HOUR) Branch 10-240 mg per 24 hr tablet albuterol Yes [id number] 2{puff} Inhale 2 Univers 90 8-24 Puffs ity of mcg/actuati 00:00: every 4 [place] as on inhaler 00 (four) Medical hours as Branch needed for Wheezing or Shortness of Breath. loratadine- Yes [id number] 1{tbl} Take 1 Univers pseudoephed 8-24 tablet by ity of rine 00:00: mouth [place] (CLARITIN-D 00 daily. Medica l 24 HOUR) Branch 10-240 mg per 24 hr tablet albuterol Yes [id number] 2{puff} Inhale 2 Univers 90 8-24 Puffs ity of mcg/actuati 00:00: every 4 [place] as on inhaler 00 (four) Medical hours as Branch needed for Wheezing or Shortness of Breath. loratadine- Yes [id number] 1{tbl} Take 1 Univers pseudoephed 8-24 tablet by ity of rine 00:00: mouth [place] (CLARITIN-D 00 daily. Medica l 24 HOUR) Branch 10-240 mg per 24 hr tablet Vital Signs Vital Name Observation Time Observation Value Comments Source Systolic blood 2022-10-26 181 mm[Hg] erp aware and University o f pressure 20:00:00 pt stable for [facility] dc Branch Diastolic blood 2022-10-26 112 mm[Hg] erp aware and University of pressure 20:00:00 pt stable for [facility] dc Branch Heart rate 2022-10-26 90 /min University of 20:00:00 [facility] Respiratory rate 2022-10-26 16 /min University of 20:00:00 [facility] Oxygen saturation 2022-10-26 99 /min [facility] in Arterial blood 20:00:00 [facility] samantha by Pulse oximetry Branch Body temperature 2022-10-26 36.61 Ela University of 14:38:00 [facility] Body height 2022-10-26 182.9 cm University of 14:38:00 [facility] Body weight 2022-10-26 162.932 kg University of 14:38:00 [facility] BMI 2022-10-26 48.72 kg/m2 University of 14:38:00 [facility] Systolic blood 2021-08-22 175 mm[Hg] University of pressure 15:26:00 [facility] Diastolic blood 2021-08-22 123 mm[Hg] University o f pressure 15:26:00 [facility] Heart rate 2021-08-22 84 /min University of 15:26:00 [facility] Respiratory rate 2021-08-22 19 /min University of 15:19:00 [facility] Body height 2021-08-22 182.9 cm University of 15:19:00 [facility] Body weight 2021-08-22 154.223 kg University of 15:19:00 [facility] BMI 2021-08-22 46.11 kg/m2 University of 15:19:00 [facility] Oxygen saturation 2021-08-22 94 /min [facility] in Arterial blood 15:19:00 [facility] by Pulse oximetry Branch Procedures Procedure Date / Time Performed Performing Clinician Pooja BAUTISTA ECG ROUTINE & 2022-10-26 18:40:48 Yusra Servin [facility] RHYTHM STRIP Medical Branch CT ABDOMEN PELVIS W 2022-10-26 16:54:50 Yusra Servin [facility] CONTRAST Medical Branch AMYLASE 2022-10-26 16:13:00 Catarino Delgado Universit [facility] LIPASE 2022-10-26 16:13:00 Catarino Delgado [facility] TROPONIN I 2022-10-26 16:13:00 Catarino Delgado [facility] COMP. METABOLIC PANEL 2022-10-26 16:13:00 Catarino Delgado [facility] ([id number]) [facility] CBC WITH DIFF 2022-10-26 16:13:00 Catarino Delgado [facility] N-TERMINAL PRO-BNP 2022-10-26 16:13:00 Catarino Delgado [facility] ASSIGNMENT OF BENEFITS 2022-10-26 15:04:56 Doctor Unassigned, No [facility] NOTICE OF PRIVACY 2022-10-26 14:23:31 Doctor Unassigned, No [facility] CONSENT/REFUSAL FOR 2022-10-26 14:23:10 Doctor Unassigned, No [facility] DIAGNOSIS AND [facility] TREATMENT Encounters Start End Encounter Admission Attending Care Care Encounter Source Date/Time Date/Time Type Type Clinicians Facility Department ID 2022-10-26 2022-10-26 Emergency X Yusra SERVIN [facility] ERT [id number] Univers 09:39:00 16:21:00 ity of [facility] 2022-10-26 2022-10-26 Emergency Catarino Delgado [facility] 1.2.8 [id number] Univers 09:39:00 16:21:00 Yusra Servin [id number] ity of [place] 4.2.7.2.686 [facility] [id number] [place] [address] Branch 2021-12-07 2021-12-07 Kalina Meeks [facility] [id number] Univers 00:00:00 00:00:00 Sendshyla MAGAÑA [id number] ity of [place] 4.2.7.2.686 [phone] Nm dical NAL 9 [facility] 2021-08-22 2021-08-22 [facility] [id number] Univers 10:00:00 10:53:23 [facility] 2021-08-22 2021-08-22 [facility] [id number] Univers 10:00:00 10:53:23 Visit Sendil Jeanine MAGAÑA [id number] ity [facility] 4.2.7.2.686 [place] [facility] [id number] Nm dical NAL 9 [facility] 2021-08-22 2021-08-22 [facility] [id number] Univers 10:00:00 10:53:23 [facility] 2021-08-22 2021-08-22 Orders Doctor KENDALL [id number] Univers 00:00:00 00:00:00 Only Unassigned, PAOLA 350.1.13.10 ity of [place] [facility] 4.2.7.2.686 Kunal as [id number] [place] [address] Branch 2019-01-11 2019-01-11 Emergency [facility] [id number] Univers 07:57:51 08:50:00 Ronal Mgaaña 350.1.13.10 i ty [facility] 4.2.7.2.686 [place] [facility] [place] [id number] [address] Results Test Description Test Time Test Comments Results Result Comments Source TROPONIN I 2022-10-26 17:04:01 Test Item Value Reference Range Interpretation Comme nts TROPONIN I (test code = 4143239415) 0.006 ng/mL <=0.034 GILBERTO (test code = GILBERTO) Reference (Normal) Range (defined by the 99th percentile reference limit): <= 0.034 ng/mL Note: Cardiac troponin begins to rise 3-4 hours after the onset of ischemia. Repeat in 4-6 hours if the sample was drawn within 3-4 hours of the onset of the symptom and found normal. Diagnosis of myocardial injury is made with acute changes in cTn concentrations with at least one serial sample above the 99th percentile upper reference limit (URL), taken together with the patient's clinical presentation. Biotin has been reported to cause a negative bias, interpret results relative to patient's use of biotin. Lab Interpretation (test code = Normal 24124-8) [facility] [id number] 17:01:03 Test Item Value Reference Range Interpretation Comments NT-proBNP (test code = 65 pg/mL <=125 [id number]) GILBERTO (test code = GILBERTO) Biotin has been reported to cause a negative bias, interpret results relative to patient's use of biotin. Lab Interpretation (test Normal code = 33435-2) [facility] MET[facility]OLIC PANEL ([id number])2022-10-26 16:52:57 Test Item Value Reference Range Interpretation Comments NA (test code = 139 mmol/L 135-145 7960016786) K (test code = 3.7 mmol/L 3.5-5.0 8985410319) CL (test code = 103 mmol/L 98-108 8045452574) CO2 TOTAL (test code = 28 mmol/L 23-31 4855256661) AGAP (test code = 8 2-16 2563199600) BUN (test code = 12 mg/dL 7-23 2685211188) GLUCOSE (test code = 116 mg/dL 70-110 H 8409078464) CREATININE (test code = 0.72 mg/dL 0.60-1.25 8851600335) TOTAL BILI (test code = 1.5 mg/dL 0.1-1.1 H 0488941493) CALCIUM (test code = 9.2 mg/dL 8.6-10.6 8071075958) T PROTEIN (test code = 7.2 g/dL 6.3-8.2 4745741418) ALBUMIN (test code = 4.0 g/dL 3.5-5.0 3490422593) ALK PHOS (test code = 67 U/L 34-122 3439283213) ALTv (test code = 64 U/L 5-50 H 1742-6) AST(SGOT) (test code = 36 U/L 13-40 4756204940) eGFR (test code = 131.0 mL/min/1.73m2 9454059137) GILBERTO (test code = GILBERTO) Association of Glomerular Filtration Rate (GFR) and Staging of Kidney Disease* + --+ --+ ------+| GFR (mL/min/1.73 m2) ?| With Kidney Damage ?| ?Without Kidney Damage+ --------+ --------+ +| ?>90 ?| ?Stage one ?| ? Normal ?+ ---+ ---+ -------+| ?60-89 ?| ?Stage two ?| ? Decreased GFR ? + --+ --+ ------+| ?30-59 ?| ?Stage three ?| ? Stage three ? + --+ --+ ------+| ?15-29 ?| ?Stage four ? | ? Stage four ?+ ---+ ---+ -------+| ?<15 (or dialysis) ? ?| ?Stage five ? | ? Stage five ?+ ---+ ---+ -------+ *Each stage assumes the associated GFR level has been in effect for at least three months. ?Stages 1 to 5, with or without kidney disease, indicate chronic kidney disease. Notes: Determination of stages one and two (with eGFR >59mL/min/1.73 m2) requires estimation of kidney damage for at least three months as defined by structural or functional abnormalities of the kidney, manifested by either:Pathological abnormalities or Markers of kidney damage (including abnormalities in the composition of the blood or urine or abnormalities in imaging tests). Lab Interpretation Abnormal (test code = 83800-0) [facility]20[facility] 16:52:36 Test Item Value Reference Range Interpretation Comments LIPASE (test code = 8646127783) 90 U/L 0-220 Lab Interpretation (test code = Normal 36713-2) [facility]20[facility]-08 16:52:00 Test Item Value Reference Range Interpretation Comments TOBIAS (test code = 3431314425) 56 U/L 35-110 Lab Interpretation (test code = Normal 91941-8) [facility] WITH [id number] 16:46:00 Test Item Value Reference Range Interpretation Comments WBC (test code = 11.36 See_Comment H [Automated 4590-2) message] The sy stem which generated this result transmitted reference range : 4.20 - 10.70 10*3/?L. The reference range was not used to interpret this result as normal/abnormal . RBC (test code = 5.89 See_Comment H [Automated 789-8) message] The sy stem which generated this result transmitted reference range : 4.26 - 5.52 10*6/?L. The reference range was not used to interpret this result as normal/abnormal . HGB (test code = 17.3 g/dL 12.2-16.4 H 718-7) HCT (test code = 48.9 % 38.4-49.3 4544-3) MCV (test code = 83.0 fL 81.7-95.6 787-2) MCH (test code = 29.4 pg 26.1-32.7 785-6) MCHC (test code = 35.4 g/dL 31.2-35.0 H 786-4) RDW-SD (test code = 38.0 fL 38.5-51.6 L 45395-4) RDW-CV (test code = 12.6 % 12.1-15.4 788-0) PLT (test code = 297 See_Comment [Automated 777-3) message] The sy stem which generated this result transmitted reference range : 150 - 328 10*3/ ?L. The reference r chance was not used to interpret this result as normal/abnormal . MPV (test code = 9.9 fL 9.8-13.0 80458-9) NRBC/100 WBC (test 0.0 See_Comment [Automat ed code = 8646530452) message] The system which generated this result transmitted reference range : 0.0 - 10.0 /100 WBCs. The refer ence range was not u sed to interpret th is result as normal/abnormal . NRBC x10^3 (test code See_Comment [Auto mated = 5510803550) message] The s ystem which generated this result transmitted reference range : 10*3/?L. The reference range was not used to interpret this result as normal/abnormal . GRAN MAT (NEUT) % 53.6 % (test code = 770-8) IMM GRAN % (test code 0.90 % = 9377925377) LYMPH % (test code = 34.2 % 736-9) MONO % (test code = 8.6 % 5905-5) EOS % (test code = 1.9 % 713-8) BASO % (test code = 0.8 % 706-2) GRAN MAT x10^3(ANC) 6.09 10*3/uL 1.99-6.95 (test code = 3917929983) IMM GRAN x10^3 (test 0.10 10*3/uL 0.00-0.06 H code = 7747558760) LYMPH x10^3 (test code 3.88 10*3/uL 1.09-3.23 H = 731-0) MONO x10^3 (test code 0.98 10*3/uL 0.36-1.02 = 742-7) EOS x10^3 (test code = 0.22 10*3/uL 0.06-0.53 711-2) BASO x10^3 (test code 0.09 10*3/uL 0.01-0.09 = 704-7) Lab Interpretation Abnormal (test code = 10558-1) [facility]"
[2022-11-05] MEDS ORDERED: NA CHLORIDE 0.9% 1,000 ML ONE (21:43)
[2022-11-05] MEDS ORDERED: ONDANSETRON 4 MG/2 ML VIAL ONE (21:43)
[2022-11-05] MEDS ORDERED: MORPHINE 4 MG/ML SYR ONE (21:43)
[2022-11-05 21:46] LABS: Absolute Lymphocytes (CBC) 4.5 K/uL (0.7-4.9); Hematocrit 48.4 % (39.6-49.0); Lymphocytes % 27.3 % (15.3-44.8); MCV 83.5 fL (80-100); MPV 7.8 fL (7.6-11.3)
[2022-11-05 21:59] LABS: Albumin 3.4 g/dL (3.4-5.0); Bilirubin Total 0.6 mg/dL (0.2-1.0); Protein, Total 7.4 g/dL (6.4-8.2)
[2022-11-05 21:59] LABS: Specific Gravity 1.019 (1.005-1.030); Urine Bacteria None Seen /HPF (<20); Urine Bilirubin NEGATIVE (Negative); Urine Blood Negative (Negative); Urine Clarity Clear (Clear); Urine Color Light-Yellow (Yellow); Urine Glucose NEGATIVE (Negative); Urine Protein 1+ (Negative); Urine RBC <5 /HPF (None Seen); Urine Urobilinogen Normal (Normal); Urine pH 5.5 (5.0-7.0)
[2022-11-05] MEDS ORDERED: DIAZEPAM 10 MG/2 ML INJ SYRINGE ONE (23:04)
--- NOTE | 2022-11-06 00:27 | ER ---
Nurse's Notes [facility] Name: Kathe Cotto Age: 27 yrs Sex: Male : 1995 Arrival Date: 11/05/2022 Time: 20:42 Bed 13 Private MD: Diagnosis: Nontraumatic hematoma of soft tissue-left external oblique muscle Presentation: 11/05 21:02 Chief complaint: Patient states: "I was playing basketball and I turned towards the vc1 back and felt something. I sneezed earlier and felt something pop and it brought me to my knees.". Coronavirus screen: Vaccine status: Patient reports receiving the 1st dose of the Covid vaccine. Unsure of etl data architect Client denies travel out of the [place] in the last 14 days. At this time, the client does not indicate any symptoms associated with coronavirus-19. Ebola Screen: Patient negative for fever greater than or equal to 101.5 degrees Fahrenheit, and additional compatible Ebola Virus Disease symptoms Patient denies exposure to infectious person. Patient denies travel to an Ebola-affected area in the 21 days before illness onset. No symptoms or risks identified at this time. Initial Sepsis Screen: Does the patient meet any 2 criteria? HR > 90 bpm. No. Patient's initial sepsis screen is negative. Does the patient have a suspected source of infection? No. Patient's initial sepsis screen is negative. Risk Assessment: Do you want to hurt yourself or someone else? Patient reports no desire to harm self or others. Onset of symptoms was November 05, 2022. 21:02 Method Of Arrival: Wheelchair vc1 21:02 Acuity: ISAAC 4 vc1 Triage Assessment: 21:06 General: Appears uncomfortable, obese, Behavior is cooperative, appropriate for age. vc1 Pain: Complains of pain in left low back Pain radiates to left mid back and posterior aspect of left lateral abdomen Pain currently is 9 out of 10 on a pain scale. at worst was 10 out of 10 on a pain scale. Quality of pain is described as sharp, Pain began suddenly, Is continuous, Aggravated by increased activity, weight bearing. EENT: No deficits noted. No signs and/or symptoms were reported regarding the EENT system. Neuro: Level of Consciousness is awake, alert, obeys commands, Oriented to person, place, time, situation, Appropriate for age. Cardiovascular: No deficits noted. Respiratory: Airway is patent Respiratory effort is even, unlabored, Respiratory pattern is regular, symmetrical. GI: No deficits noted. No signs and/or symptoms were reported involving the gastrointestinal system. : No deficits noted. No signs and/or symptoms were reported regarding the genitourinary system. Derm: No deficits noted. No signs and/or symptoms reported regarding the dermatologic system. Musculoskeletal: hesitant to move Reports pain in left low back. Historical: - Allergies: 21:05 No Known Allergies; vc1 - Home Meds: 21:05 None [Active]; vc1 - PMHx: 21:05 Hypertension; intussusception; vc1 - PSHx: 21:05 Appendectomy; vc1 - Immunization history:: Client reports receiving the 1st dose of the Covid vaccine. - Social history:: Smoking status: Patient reports the use of cigarette tobacco products, denies chronic smoking, but will smoke occasionally. Screenin:06 [facility] ED Fall Risk Assessment (Adult) History of falling in the last 3 months, vc1 including since admission Yes- physiologic fall (2 pts) Confusion or Disorientation No (0 pts) Intoxicated or Sedated No (0 pts) Impaired Gait No (0 pts) Mobility Assist Device Used No (0 pt) Altered Elimination No (0 pt) Score/Fall Risk Level 0 - 2 = Low Risk Oriented to surroundings, Maintained a safe environment, Educated pt \\T\\ family on fall prevention, incl call for assistance when getting out of bed. Abuse screen: Denies threats or abuse. Abuse screen: Denies threats or abuse. Nutritional screening: No deficits noted. Tuberculosis screening: No symptoms or risk factors identified. Assessment: 22:17 Reassessment: No changes from previously documented assessment. Patient and/or family vc1 updated on plan of care and expected duration. Pain level reassessed. Patient is alert, oriented x 3, equal unlabored respirations, skin warm/dry/pink. Neuro: Level of Consciousness is awake, alert, confused, Oriented to person, place, time, situation, Appropriate for age. 11/06 00:57 Reassessment: No changes from previously documented assessment. Patient and/or family vc1 updated on plan of care and expected duration. Pain level reassessed. Patient is alert, oriented x 3, equal unlabored respirations, skin warm/dry/pink. Patient states feeling better. Patient states symptoms have improved. Vital Signs: 11/05 21:02 BP 173 / 119; Pulse 102; Resp 17; Temp 98.6; Pulse Ox 98% ; Weight 162.84 kg; Height 6 vc1 ft. 0 in. ; Pain 9/10; 21:45 BP 163 / 93; Pulse 98; vc1 22:15 BP 161 / 119; Pulse 93; Resp 17; Pulse Ox 97% on R/A; vc1 23:00 BP 155 / 109; Pulse 101; Resp 18; Pulse Ox 96% ; vc1 11/06 00:57 BP 171 / 109; Pulse 85; Resp 17; Pulse Ox 99% ; vc1 11/05 21:02 Body Mass Index 48.69 (162.84 kg, 182.88 cm) vc1 11/05 21:02 Pain Scale: Adult vc1 00:57 just started bp medicine vc1 ED Course: 11/05 20:44 Patient arrived in ED. ja2 20:47 Jevon Dewey PA is PHCP. cp 20:47 Rowdy Andre MD is Attending Physician. cp 21:05 Triage completed. vc1 21:05 Arm band placed on right wrist. vc1 21:08 Patient has correct armband on for positive identification. Bed in low position. Call vc1 light in reach. Pulse ox on. NIBP on. 21:45 Amarilys Andrews, MICKEY is Primary Nurse. vc1 23:21 CT Abd/Pelvis - IV Contrast Only In Process Unspecified. EDMS 11/06 00:25 Gibson De Los Santos MD is Referral Physician. cp 01:09 No provider procedures requiring assistance completed. IV discontinued, intact, vc1 bleeding controlled, No redness/swelling at site. Pressure dressing applied. Administered Medications: 11/05 21:44 Drug: NS 0.9% IV 1000 ml Route: IV; Rate: 1 bolus; Site: right antecubital; vc1 21:44 Drug: Ondansetron IVP 4 mg Route: IVP; Site: right antecubital; vc1 22:30 Follow up: Response: No adverse reaction; Marked relief of symptoms vc1 21:45 Drug: morphine IVP or IV 4 mg Route: IVP; Infused Over: 4 mins; Site: right antecubital;vc1 22:30 Follow up: Response: No adverse reaction; Pain is unchanged, physician notified vc1 22:58 Drug: Diazepam IVP 5 mg Route: IVP; Site: right antecubital; vc1 11/06 01:09 Follow up: Response: No adverse reaction; Marked relief of symptoms vc1 00:22 CANCELLED (Physician Discretion): Ketorolac IVP 15 mg IVP once cp 00:53 Drug: HYDROmorphone IVP 1 mg Route: IVP; Site: right antecubital; vc1 01:09 Follow up: Response: No adverse reaction; Medication administered at discharge. vc1 Medication: 11/05 21:08 VIS not applicable for this client. vc1 Outcome: 11/06 00:26 Discharge ordered by MD. cp 01:09 Discharged to home ambulatory, with significant other. vc1 01:09 Condition: good 01:09 Discharge instructions given to patient, Instructed on discharge instructions, follow up and referral plans. medication usage, Demonstrated understanding of instructions, follow-up care, medications, Prescriptions given X 2. 01:10 Patient left the ED. vc1 Signatures: Dispatcher [employer] EDMS Jevon Dewey PA PA Martha Winn Vanessa RN RN vc1 Corrections: (The following items were deleted from the chart) 00:57 18 23:00 BP 171 / 109; Pulse 85bpm; Resp 17bpm; Pulse Ox 99%; just started bp vc1 medicine; vc1 11/06 01:09 00:57 Reassessment: No changes from previously documented assessment. Patient and/or vc1 family updated on plan of care and expected duration. Pain level reassessed. Patient is alert, oriented x 3, equal unlabored respirations, skin warm/dry/pink. Patient states symptoms have not improved. vc1
--- NOTE | 2022-11-06 00:27 | EDPHYS ---
Physician Documentation [facility] Name: Kathe Cotto Age: 27 yrs Sex: Male : 1995 Arrival Date: 11/05/2022 Time: 20:42 Bed 13 Private MD: ED Physician Rowdy Andre HPI: 11/05 21:20 This 27 yrs old Male presents to ER via Wheelchair with complaints of Flank cp Pain, Back Pain. 21:20 The patient complains of pain in the left flank. cp 21:20 The pain radiates to the left subscapular area and left mid back. cp 21:20 Onset: The symptoms/episode began/occurred today. Modifying factors: the symptoms are cp aggravated by movement, palpation/percussion. Severity of pain: in the emergency department the pain is unchanged despite home interventions. Patient reports pain started while playing basketball today after turning waist and pain became worse after sneezing. Denies trauma to area. Historical: - Allergies: 21:05 No Known Allergies; vc1 - Home Meds: 21:05 None [Active]; vc1 - PMHx: 21:05 Hypertension; intussusception; vc1 - PSHx: 21:05 Appendectomy; vc1 - Immunization history:: Client reports receiving the 1st dose of the Covid vaccine. - Social history:: Smoking status: Patient reports the use of cigarette tobacco products, denies chronic smoking, but will smoke occasionally. ROS: 21:30 Constitutional: Negative for body aches, chills, fever, poor PO intake. cp 21:30 Eyes: Negative for injury, pain, redness, and discharge. cp 21:30 Cardiovascular: Negative for chest pain, edema, palpitations. 21:30 Respiratory: Negative for cough, shortness of breath, wheezing. 21:30 Abdomen/GI: Positive for abdominal pain, left lateral abdomen, Negative for vomiting, diarrhea, constipation. 21:30 Back: Positive for flank pain, on the left, left back pain. 21:30 : Negative for urinary symptoms, testicular pain 21:30 Skin: Negative for rash. 21:30 Neuro: Negative for altered mental status, dizziness, headache, syncope, weakness. 21:30 All other systems are negative. Exam: 21:33 Constitutional: The patient appears in no acute distress, alert, awake, cp non-diaphoretic, non-toxic, well developed, well nourished, obese, in obvious pain, uncomfortable. 21:33 Head/Face: Normocephalic, atraumatic. cp 21:33 Eyes: Periorbital structures: appear normal, Conjunctiva: normal, no exudate, no injection, Sclera: no appreciated abnormality, Lids and lashes: appear normal, bilaterally. 21:33 ENT: External ear(s): are unremarkable, Nose: is normal, Mouth: Lips: moist, Oral mucosa: pink and intact, moist, Posterior pharynx: is normal, airway is patent, no erythema, no exudate. 21:33 Neck: ROM/movement: is normal, is supple, without pain, no range of motions limitations, no meningismus, no nuchal rigidity. 21:33 Chest/axilla: Inspection: normal, Palpation: crepitus, is not appreciated, tenderness, is not appreciated. 21:33 Cardiovascular: Rate: tachycardic, Rhythm: regular. 21:33 Respiratory: the patient does not display signs of respiratory distress, Respirations: normal, no use of accessory muscles, no retractions, labored breathing, is not present, Breath sounds: are clear throughout, no decreased breath sounds, no stridor, no wheezing. 21:33 Abdomen/GI: Inspection: obese Bowel sounds: active, all quadrants, Palpation: soft, in all quadrants, moderate abdominal tenderness, in the anterior aspect of left lateral abdomen and posterior aspect of left lateral abdomen, rebound tenderness, is not appreciated, involuntary guarding, is not appreciated. 21:33 Skin: cellulitis, is not appreciated, no rash present. 21:33 Neuro: Orientation: to person, place \T\ time. Mentation: is normal, Motor: moves all fours, strength is normal, Sensation: is normal. Vital Signs: 21:02 BP 173 / 119; Pulse 102; Resp 17; Temp 98.6; Pulse Ox 98% ; Weight 162.84 kg; Height 6 vc1 ft. 0 in. ; Pain 9/10; 21:45 BP 163 / 93; Pulse 98; vc1 22:15 BP 161 / 119; Pulse 93; Resp 17; Pulse Ox 97% on R/A; vc1 23:00 BP 155 / 109; Pulse 101; Resp 18; Pulse Ox 96% ; vc1 11/06 00:57 BP 171 / 109; Pulse 85; Resp 17; Pulse Ox 99% ; vc1 11/05 21:02 Body Mass Index 48.69 (162.84 kg, 182.88 cm) 1 11/05 21:02 Pain Scale: Adult vc1 00:57 just started bp medicine vc1 MDM: 11/05 21:00 Patient medically screened. 22:00 Differential diagnosis: nephrolithiasis, pyelonephritis, UTI, diverticulitis, ruptured cp AAA, dissecting AAA. 11/06 00:25 Data reviewed: vital signs, nurses notes, lab test result(s), radiologic studies, CT cp scan. 00:25 I considered the following discharge prescriptions or medication management in the emergency department Medications were administered in the Emergency Department. See JUL. 00:25 Counseling: I had a detailed discussion with the patient and/or guardian regarding: the historical points, exam findings, and any diagnostic results supporting the discharge/admit diagnosis, lab results, radiology results, the need for outpatient follow up, a general surgeon, to return to the emergency department if symptoms worsen or persist or if there are any questions or concerns that arise at home. Response to treatment: the patient's symptoms have markedly improved after treatment, and as a result, I will discharge patient. 11/05 21:12 Order name: CBC with Diff; Complete Time: 22:11 11/05 21:12 Order name: CMP; Complete Time: 22:11 cp 11/05 21:12 Order name: Lipase; Complete Time: 22:11 cp 11/05 21:12 Order name: Urinalysis W/Microscopic; Complete Time: 22:11 cp 11/05 22:12 Order name: CT Abd/Pelvis - IV Contrast Only 11/05 21:12 Order name: IV Saline Lock; Complete Time: 21:29 cp 11/05 21:12 Order name: Labs collected and sent; Complete Time: 21:29 cp Administered Medications: 11/05 21:44 Drug: NS 0.9% IV 1000 ml Route: IV; Rate: 1 bolus; Site: right antecubital; vc1 21:44 Drug: Ondansetron IVP 4 mg Route: IVP; Site: right antecubital; vc1 22:30 Follow up: Response: No adverse reaction; Marked relief of symptoms vc1 21:45 Drug: morphine IVP or IV 4 mg Route: IVP; Infused Over: 4 mins; Site: right antecubital;vc1 22:30 Follow up: Response: No adverse reaction; Pain is unchanged, physician notified vc1 22:58 Drug: Diazepam IVP 5 mg Route: IVP; Site: right antecubital; vc1 11/06 01:09 Follow up: Response: No adverse reaction; Marked relief of symptoms vc1 00:22 CANCELLED (Physician Discretion): Ketorolac IVP 15 mg IVP once cp 00:53 Drug: HYDROmorphone IVP 1 mg Route: IVP; Site: right antecubital; vc1 01:09 Follow up: Response: No adverse reaction; Medication administered at discharge. vc1 Disposition: 07:31 Co-signature as Attending Physician, Rowdy Andre MD I agree with the assessment sp4 and plan of care. I reviewed the patient's care provided by the Advanced Practice Provider and agree with the diagnosis and treatment plan. Disposition Summary: 11/06/22 00:26 Discharge Ordered Location: Home cp Problem: new cp Symptoms: have improved cp Condition: Stable cp Diagnosis - Nontraumatic hematoma of soft tissue - left external oblique muscle cp Followup: cp - With: Gibson De Los Santos MD - When: 2 - 3 days - Reason: Recheck today's complaints Discharge Instructions: - Discharge Summary Sheet cp - Hematoma cp - Heat Therapy cp Forms: - Medication Reconciliation Form cp - Thank You Letter cp - Antibiotic Education cp - Prescription Opioid Use cp - Work release form vc1 Prescriptions: - acetaminophen-codeine 300-30 mg Oral tablet - take 2 tablet by ORAL route every 6-8 hours; 16 tablet; Refills: 0, Product cp Selection Permitted - Cyclobenzaprine 10 mg Oral Tablet - take 1 tablet by ORAL route every 8 hours As needed; 30 tablet; Refills: 0, cp Product Selection Permitted Signatures: Dispatcher [employer] EDMD Jevon Dewey PA PA cp Amarilys Andrews RN RN vc1 Rowdy Andre MD MD sp4 Corrections: (The following items were deleted from the chart) 00:22 00:22 Ketorolac IVP 15 mg IVP once ordered. cp cp
[2022-11-06] MEDS ORDERED: HYDROMORPHONE HCL 1 MG/ML INJ ONE (00:59)
--- NOTE | 2022-11-06 13:08 | RAD REPORT ---
EXAM DESCRIPTION: CT - Abdomen Pelvis W Contrast - 11/06/2022 6:16 am CLINICAL HISTORY: The patient is 27 years old and is Male; FLANK PAIN TECHNIQUE: Axial computed tomography images of the abdomen and pelvis with intravenous contrast. S agittal and coronal reformatted images were created and reviewed. This CT exam was performed using one or more of the following dose reduction techniques: automated exposure control, adjustment of t he mA and/or kV according to patient size, and/or use of iterative reconstruction technique. COMPARISON: No relevant prior studies available. FINDINGS: LUNG BASES: Unremarkable. No mass. No consolidation. ABDOMEN: LIVER: The liver is enlarged and diffusely fatty. GALLBLADDER AND BILE DUCTS: The gallbladder is contracted. PANCREAS: No ductal dilation. No mass. SPLEEN: Unremarkable. ADRENALS: Unremarkable. No mass. KIDNEYS AND URETERS: Unremarkable. The kidneys enhance symmetrically. No obstructing renal or ure teral calculus is seen. No hydronephrosis or hydroureter. No perinephric fluid or stranding. STOMACH AND BOWEL: The stomach is distended with food contents. The small bowel is normal in janette gaye. Stool is present throughout colon. Scattered colonic diverticula are noted without surrounding i nflammation. PELVIS: APPENDIX: No findings to suggest acute appendicitis. BLADDER: The bladder is well distended. REPRODUCTIVE: Unremarkable as visualized. ABDOMEN and PELVIS: INTRAPERITONEAL SPACE: Unremarkable. No free air. No significant fluid collection. BONES/JOINTS: No acute fracture. SOFT TISSUES: A 7.4 x 3.1 cm hematoma within the left external oblique musculature is present. A moderate-sized fat-containing umbilical hernia is present. VASCULATURE: Unremarkable. No abdominal aortic aneurysm. LYMPH NODES: Unremarkable. No enlarged lymph nodes. IMPRESSION: Findings suggest a left external oblique hematoma. Correlation for a history of trauma i s recommended. If there is no history of trauma, consider further evaluation/imaging on a nonemergent basis. Electronically signed by: Carissa Velazquez MD 11/06/2022 12:09 AM CDT Due to temporary technical issues with the PACS/Fluency reporting system, reports are being signed by the in house radiologist without review as a courtesy to ensure prompt reporting. The interpreting r adiologist is fully responsible for the content of the report.
== END 2022-11-06 01:10 | disposition home or self-care (01) ==
LOC: ER 20:42
DX: S30.1XXA Contusion of abdominal wall, initial encounter (principal)
CPT/HCPCS: 36415; 74177; 80053; 81001; 83690; 85025; 96374; 96375; 99284; J1170; J2405; J3360; J7030; Q9967

== ENCOUNTER 2024-01-08 23:08 | Emergency (ER) | payer OTHER ==
--- OUTSIDE RECORDS SUMMARY | 2024-01-08 23:12 | XMS REPORT | Continuity of Care Document ---
Author Name Unknown Address [address] [facility] [address] [place] [address] [facility] Address [address] [facility] [address] [place] [address] Care Team Providers Care Tawer Name Role Phone PCP, PATIENT DOES NOT HAVE A Primary Care Physic ramiro Unavailable VIOLETA MEEKS K.HCaden Attending Clinician UnavailMADELEINE Lee Attending Clinician Unavailable Jorge Mukherjee DO Attending Clinician [phone] Madeleine Burleson DO Attending Clinician [phone] Yoseph Israel MD Attending Clinician [phone] Doctor Unassigned, [place] Attending Clinician U Yusra Oconnor Attending Clinician Unavailable Catarino Delgado MD Attending Clinician [phone] Yusra Hall Attending Clinician [phone] Violeta Meeks MD KCadenHCaden Attending Clinician [phone] Ronal Kong MD Attending Clinician [phone] YOSEPH ISRAEL Admitting Clinician Unavailable Yoseph Israel MD Admitting Clinician [phone] Yusra SERVIN Admitting Clinician Unavailable Payers Payer Name Policy Type Policy Number Effective Date Expirati on Date Source HIM [facility] [id number] 2022 00:00:00 Problems Condition Name Condition Details Condition Category Status Onset Date Resolution Date Last Treatment Date Treating Clinician Comments Source KAYY (obstructi ve sleep apnea) KAYY (obstructi ve sleep apnea) Disease Active 2022-05 0-05 00:00: 00 [facility] Hypertensi ve urgency Hypertensi ve urgency Disease Active 2022-05 0-05 00:00: 00 [facility] Chest pain Chest pain Disease Active 2022-05 0-05 00:00: 00 [facility] Cigarette smoker Cigarette smoker Disease Active 2022-05 0-05 00:00: 00 [facility] Hypokalemi a Hypokalemi a Disease Active 2022-05 0-05 00:00: 00 [facility] Elevated blood pressure reading Elevated blood pressure reading Disease Active 2022-05 0-04 00:00: 00 [facility] Morbid obesity with body mass index of 40.0-49.9 Morbid obesity with body mass index of 40.0-49.9 Disease Active 2022-05 0-04 00:00: 00 [facility] No known active problems No known active problems Disease [facility] Allergies, Adverse Reactions, Alerts Allergy Name Allergy Type Status Severity Reaction(s) Onset Date Inactive Date Treating Clinician Comments Source NO KNOWN ALLERGIE S Drug Class Active [facility] Social History Social Habit Start Date Stop Date Quantity Comments Source Gender identity [facility] Sexual orientation U [facility] Exposure to SARS-CoV-2 (event) Not sure [facility] History of tobacco use Smokes tobacco daily [facility] History of Social function 2021-08-22 00:00:00 2021-08-22 00:00:00 [facility] Tobacco use and exposure 2021-08-22 00:00:00 2021-08-22 00:00:00 Smokeless tobacco non-user [facility] Sex Assigned At 1995 00:00:00 1995 00:00:00 [facility] Smoking Status Start Date Stop Date Source Smokes tobacco daily 2021-08-22 00:00:00 [facility] Medications Ordered Medication Name Filled Medication Name Start Date Stop Date Current Medication? Ordering Clinician Indication Dosage Frequency Signature (SIG) Comments Components Source amLODIPine 10 mg tablet 2022-05 00:00: 00 03-26 05:59 :00 No [id number] 10mg Take 1 tablet by mouth in the morning for 30 days. [facility] spironolact one 25 mg tablet 2022-05 00:00: 00 03-26 05:59 :00 No [id number] 25mg Take 1 tablet by mouth in the morning for 30 days. [facility] nicotine (NICODERM) 14 mg/24 hr patch 1 Patch 2022-05 17:15: 00 Yes 1{patch } 1 Patch, Topical, Administer over 24 Hours, Q24H, First dose on Shell 02/22/23 at 1215, Until Discontinu ed, Routine [facility] amLODIPine (NORVASC) tablet 10 mg 2022-05 14:00: 00 Yes 10mg 10 mg, Oral, DAILY, First dose (after last modificati on) on Shell 02/22/23 at 0900, Until Discontinu ed, Routine [facility] spironolact one (ALDACTONE) tablet 25 mg 2022-05 14:00: 00 Yes 25mg 25 mg, Oral, DAILY, First dose on Shell 02/22/23 at 0900, Until Discontinu ed, Routine [facility] lisinopriL (PRINIVIL,Z ESTRIL) tablet 40 mg 2022-05 14:00: 00 Yes 40mg 40 mg, Oral, DAILY, First dose on Shell 02/22/23 at 0900, Until Discontinu ed, Routine [facility] aspirin chewable tablet 81 mg 2022-05 14:00: 00 Yes 81mg 81 mg, Oral, DAILY, First dose on Shell 02/22/23 at 0900, Until Discontinu ed, Routine [facility] enoxaparin (LOVENOX) injection 40 mg 2022-05 13:00: 00 Yes 40mg 40 mg, Subcutaneo us, Q12H, First dose (after last modificati on) on Sun02/22/23 at 0800, Until Discontinu ed, [facility] 10 mEq/100 mL RTU 10 mEq 2022-05 0-05 12:45: 00 02-22 16:42 :00 No 10meq 10 mEq, IV Piggyback, Q1H ES, 4 doses, First dose on Sun02/22/23 at 0745, Last dose on Sun02/22/23 at 1045, Administer over 60 Minutes, 100 mL [facility] cloNIDine (CATAPRES) tablet 0.1 mg 2022-05 12:29: 25 Yes .1mg 0.1 mg, Oral, TIDPRN, Starting on Sun02/22/23 at 0729, Until Discontinu ed, Routine, For SBP > 160 or DBP > 110. Hold for SBP < 110, DBP < 60 Univers y [facility] labetaloL (NORMODYNE) injection 10 mg 2022-05 005 08:09: 44 Yes 10mg 10 mg, Slow IV Push, Q4HPRN, Starting on Sun02/22/23 at 0309, Until Discontinu ed, Routine, For SBP > 110, DBP > 110. Hold for HR < 60 [facility] amLODIPine (NORVASC) tablet 5 mg 2022-05 005 05:15: 00 02-22 12:44 :41 No 5mg 5 mg, Oral, BID, First dose (after last modificati on) on Sun02/22/23 at 0015, Until Discontinu ed, Routine [facility] morpHINE (2 mg/mL) injection 2 mg 2022-05 0-05 05:02: 56 02-23 05:01 :56 No 2mg 2 mg, Slow IV Push, Q4HPRN, Starting on Sun02/22/23 at 0002, Until Sun02/23/23 at 0001, Routine, Pain (scale 7-10), Chest pain [facility] traMADoL (ULTRAM) tablet 50 mg 2022-05 0-05 05:02: 54 02-24 05:01 :54 No 50mg 50 mg, Oral, Q8HPRN, Starting on Sun02/22/23 at 0002, Until 02/24/23 at 0001, Routine, Pain (scale 4-6) [facility] acetaminoph en (TYLENOL) tablet 650 mg 2022-05 0-05 05:02: 52 Yes 650mg 650 mg, Oral, Q6HPRN, Starting on Sun02/22/23 at 0002, Until Discontinu ed, Routine, Pain (scale 1-3) [facility] hydralAZINE (APRESOLINE ) injection 10 mg 2022-05 0-05 03:40: 10 Yes 10mg 10 mg, Slow IV Push, Q4HPRN, Starting on Sun02/21/23 at 2240, Until Discontinu ed, Routine, DBP=>100; SBP=>160 [facility] metoprolol tartrate (LOPRESSOR) tablet 25 mg 2022-05 0-05 02:15: 00 Yes 25mg 25 mg, Oral, BID, First dose on Sun02/21/23 at 2115, Until Discontinu ed, Routine [facility] KCL (KLOR-CON M20) tablet 60 mEq 2022-05 0-05 00:45: 00 02-22 01:02 :00 No 60meq 60 mEq, Oral, ONCE, 1 dose, On Sun02/21/23 at 1945, ILYA [facility] aspirin tablet 325 mg 2022-05 0-05 00:15: 00 02-22 00:18 :00 No 325mg 325 mg, Oral, ONCE, 1 dose, On Sun02/21/23 at 1915, STAT [facility] nitroglycer in (NITROSTAT) sublingual tablet 0.4 mg 2022-05 0-05 00:13: 39 Yes .4mg 0.4 mg, Sublingual , Q5MIN PRN, 3 doses, Starting on Sun02/21/23 at 1913, Until Discontinu ed, ILYA, Chest pain [facility] hydrALAZINE 25 mg tablet 2022-05 0-05 00:00: 00 03-25 04:59 :00 No [id number] 25mg Take 1 tablet by mouth in the morning and 1 tablet in the evening. Do all this for 30 days. [facility] metoprolol tartrate 25 mg tablet 2022-05 00:00: 00 03-25 04:59 :00 No [id number] 25mg Take 1 tablet by mouth in the morning and 1 tablet in the evening. Do all this for 30 days. [facility] NaCl 0.9% (NS) bolus infusion 500 mL 2022-05 23:45: 00 02-22 02:00 :00 No 500mL at 999 mL/hr, 500 mL, IV Infusion, ONCE, 1 dose, On Sun02/21/23 at 1845, STAT [facility] amLODIPine (NORVASC) tablet 5 mg 10-27 14:00: 00 Yes 5mg 5 mg, Oral, DAILY, First dose on Sun10/27/22 at 0900, Until Discontinu ed, Routine [facility] hydralAZINE (APRESOLINE ) injection 10 mg 10-26 19:30: 00 10-26 19:33 :00 No 10mg 10 mg, Slow IV Push, ONCE, 1 dose, On Sun10/26/22 at 1430, ILYA [facility] hydralAZINE (APRESOLINE ) injection 10 mg 10-26 19:00: 00 10-26 18:53 :00 No 10mg 10 mg, Slow IV Push, ONCE, 1 dose, On Sun10/26/22 at 1400, ILYA [facility] iopamidol (ISOVUE 370-500 mL) injection 100 mL 10-26 17:45: 00 10-26 17:45 :00 No [id number] 100mL 100 mL, Intravenou s, ONCE, 1 dose, On Sun10/26/22 at 1245, Routine [facility] amLODIPine 5 mg tablet 10-26 00:00: 00 Yes [id number] 5mg Take 1 tablet by mouth at bedtime. [facility] AMLODIPINE 5 mg tablet 7-20 00:00: 00 Yes [id number] TAKE 1 TABLET BY MOUTH TWICE A DAY [facility] amLODIPine 5 mg tablet 4-04 00:00: 00 Yes [id number] 5mg Take 1 tablet by mouth 2 (two) times daily. [facility] albuterol 90 mcg/actuati on inhaler 01-11 00:00: 00 Yes [id number] 2{puff} Inhale 2 Puffs every 4 (four) hours as needed for Wheezing or Shortness of Breath. [facility] loratadine- pseudoephed rine (CLARITIN-D 24 HOUR) 10-240 mg per 24 hr tablet 01-11 00:00: 00 Yes [id number] 1{tbl} Take 1 tablet by mouth daily. [facility] Vital Signs Vital Name Observation Time Observation Value Comments S ource Systolic blood pressure 2023-02-22 17:41:00 148 mm[Hg] [facility] Diastolic blood pressure 2023-02-22 17:41:00 91 mm[Hg] [facility] Heart rate 2023-02-22 17:41:00 75 /min [facility] Body temperature 2023-02-22 17:41:00 35.83 Ela [facility] Oxygen saturation in Arterial blood by Pulse oximetry 2023-02-22 17:41:00 98 /min [facility] Respiratory rate 2023-02-22 16:51:00 18 /min [facility] Body weight 2023-02-22 08:24:00 158.804 kg [facility] BMI 2023-02-22 08:24:00 47.48 kg/m2 [facility] Body height 2023-02-22 02:34:00 182.9 cm [facility] Systolic blood pressure 2022-10-26 20:00:00 181 mm[Hg] erp aware and pt stable for dc [facility] Diastolic blood pressure 2022-10-26 20:00:00 112 mm[Hg] erp aware and pt stable for dc [facility] Heart rate 2022-10-26 20:00:00 90 /min [facility] Respiratory rate 2022-10-26 20:00:00 16 /min [facility] Oxygen saturation in Arterial blood by Pulse oximetry 2022-10-26 20:00:00 99 /min [facility] Body temperature 2022-10-26 14:38:00 36.61 Ela [facility] Body height 2022-10-26 14:38:00 182.9 cm [facility] Body weight 2022-10-26 14:38:00 162.932 kg [facility] BMI 2022-10-26 14:38:00 48.72 kg/m2 [facility] Systolic blood pressure 2021-08-22 15:26:00 175 mm[Hg] [facility] Diastolic blood pressure 2021-08-22 15:26:00 123 mm[Hg] [facility] Heart rate 2021-08-22 15:26:00 84 /min [facility] Respiratory rate 2021-08-22 15:19:00 19 /min [facility] Body height 2021-08-22 15:19:00 182.9 cm [facility] Body weight 2021-08-22 15:19:00 154.223 kg [facility] BMI 2021-08-22 15:19:00 46.11 kg/m2 [facility] Oxygen saturation in Arterial blood by Pulse oximetry 2021-08-22 15:19:00 94 /min [facility] Procedures Procedure Date / Time Performed Performing Clinician Source BASIC METABOLIC PANEL (NA, K, CL, CO2, GLUCOSE, BUN, CREATININE, CA) 2023-02-22 19:21:00 Flavia Byrne [facility] TRANSTHORACIC ECHO (TTE) COMPLETE 2023-02-22 14:50:00 Piero [facility] URINE DRUG (IMMUNOASSAY) - COMPREHENSIVE DRUG SCREEN 2023-02-22 10:14:00 Piero [facility] TROPONIN I 2023-02-22 09:46:00 [facility] 2023-02-22 09:46:00 Flavia Byrne [facility] TROPONIN I 2023-02-22 05:52:00 Yoseph Israel sity [facility] XR CHEST 1 VW 2023-02-21 23:54:38 Singer Jorge [facility] LIPASE 2023-02-21 23:44:00 [facility]jee [facility] MAGNESIUM 2023-02-21 23:44:00 Jorge [facility]jee [facility] TROPONIN I 2023-02-21 23:44:00 Jorge Mukherjee [facility] COMP. METABOLIC PANEL ([id number]) 2023-02-21 23:44:00 Singer [facility] LIPID PANEL (56386)(TOTAL CHOLESTEROL, TRIGLYCERIDES, HDL) 2023-02-21 23:44:00 Singer [facility] CBC WITH DIFF 2023-02-21 23:44:00 Singer [facility] N-TERMINAL PRO-BNP 2023-02-21 23:44:00 Singer [facility] LOW-DENSITY LIPOPROTEIN, DIRECT 2023-02-21 23:44:00 Singer [facility] HB ECG ROUTINE & RHYTHM STRIP 2023-02-21 23:25:37 Singer [facility] CONSENT/REFUSAL FOR DIAGNOSIS AND TREATMENT 2023-02-21 23:11:21 Doctor Unassigned, [place] [facility] MEDICATION CORRESPONDENCE 2022-11-18 05:01:00 Do ctor Unassigned, [place] [facility] HB ECG ROUTINE & RHYTHM STRIP 2022-10-26 18:40:48 Yusra Servin [facility] CT ABDOMEN PELVIS W CONTRAST 2022-10-26 16:54:50 Yusra Servin [facility] AMYLASE 2022-10-26 16:13:00 [facility] 2022-10-26 16:13:00 [facility] TROPONIN I 2022-10-26 16:13:00 [facility] COMP. METABOLIC PANEL (22090) 2022-10-26 16:13:00 Catarino Delgado [facility] CBC WITH DIFF 2022-10-26 16:13:00 [facility] 2022-10-26 16:13:00 Cari Delgado [facility] ASSIGNMENT OF BENEFITS 2022-10-26 15:04:56 Docto r Unassigned, [place] [facility] NOTICE OF PRIVACY PRACTICES 2022-10-26 14:23:31 Doctor Unassigned, [place] [facility] CONSENT/REFUSAL FOR DIAGNOSIS AND TREATMENT 2022-10-26 14:23:10 Doctor Unassigned, [place] [facility] Encounters Start Date/Time End Date/Time Encounter Type Admission Type Attending [facility] Care Department Encounter ID Source 2023-03-16 10:30:00 2023-03-16 10:30:00 Outpatient VIOLETA RICH [facility] [id number] [facility] 2023-03-14 14:00:00 2023-03-14 14:00:00 Outpatient VIOLETA RICH [facility] [id number] [facility] 2023-02-21 18:21:00 2023-02-22 15:36:00 Outpatient MADELEINE DEGROOT [facility] [id number] [facility] 2023-02-21 18:21:00 2023-02-22 15:36:00 Emergency Jorge Mukherjee David Edionwe [facility] [id number] [id number] [id number] [facility] 2023-02-21 17:20:45 2023-02-21 17:20:45 Outpatient [facility] [id number] Cesar Aguayo 2022-12-05 14:11:08 2022-12-05 14:11:08 Outpatient [facility] [id number] Cesar Aguayo 2022-11-18 00:00:00 2022-11-18 00:00:00 Orders Only Doctor Unassigned, [place] [facility] 1.20114 350.1.13.10 4.2.7.2.686 [id number] [facility] 2022-10-26 09:39:00 2022-10-26 16:21:00 Emergency X Yusra SERVIN [facility] ERT [id number] [facility] 2022-10-26 09:39:00 2022-10-26 16:21:00 Emergency Danny, Catarino C Meryl, K Leyda [facility] 1.0.114 350.1.13.10 4.2.7.2.686 [id number] [facility] 2021-12-07 00:00:00 2021-12-07 00:00:00 Refill Violeta Meeks [facility] 1..114 350.1.13.10 4.2.7.2.686 [id number] [facility] 2021-08-22 10:00:00 2021-08-22 10:53:23 Outpatient R VIOLETA MEEKS [facility] [id number] [facility] 2021-08-22 10:00:00 2021-08-22 10:53:23 Office Visit Violeta Meeks [facility] 1..114 350.1.13.10 4.2.7.2.686 [id number] [facility] 2021-08-22 10:00:00 2021-08-22 10:53:23 Outpatient R VIOLETA MEEKS [facility] [id number] [facility] 2021-08-22 00:00:00 2021-08-22 00:00:00 Orders Only Doctor Unassigned, [place] [facility] 1.20114 350.1.13.10 4.2.7.2.686 [id number] [facility] 2019-01-11 07:57:51 2019-01-11 08:50:00 Emergency Ronal Kong [facility] [id number] 350.1.13.10 4.2.7.2.686 [id number] [facility] Results Test Description Test Time Test Comments Results Result Co mments Source [facility] [id number] 16:59:52 * Test Item Value Reference Range Interpretation Comme nts TSH (test code = 1048916854) 1.44 See_Comment Biotin has been reported to cause a negative bias, interpret results relative to patient's use of biotin. [Automated message] The system which generated this result transmitted reference range: 0.45 - 4.70 mIU/L. The reference range was not used to interpret this result as normal/abnormal. Lab Interpretation (test code = 78771-2) Normal [facility] [id number] 10:22:48* Test Item Value Reference Range Interpretation Comme nts TROPONIN I (test code = 3826517586) 0.006 ng/mL <=0.034 GILBERTO (test code = [...] of biotin. Lab Interpretation (test code = 45752-5) Normal [facility] LIPOPROTEIN, [id number] 08:17:42* Test Item Value Reference Range Interpretation Comme nts dLDL Chol (test code = 48812-6) 88 mg/dL <=130 Lab Interpretation (test cod e = 12086-1) Normal [facility] [id number] 06:29:08* Test Item Value Reference Range Interpretation Comme nts TROPONIN I (test code = 3074077439) <=0.034 GILBERTO (test code = GILBERTO) Reference [...] of biotin. Lab Interpretation (test code = 50246-3) Normal [facility] (33539)(TOTAL CHOLESTEROL, TRIGLYCERIDES, HDL)2023-02-22 01:43:21* Test Item Value Reference Range Interpretation Comme nts CHOL (test code = 5488871527) 197 mg/dL 120-200 HDL (test code = 5584853975) 19 mg/dL >=40 L HDLC RATIO (test code = 2216318273) 10.4 <=5.0 H TRIG (test code = 9622465418) 481 mg/dL 30-170 H LDL CHOL (test code = 29461-4) Unable to calcul ate LDL due to elevated triglyceride level greater than 400 mg/dL. VLDL (test code = 6674344346) 96 mg/dL 5-60 H Lab Interpretation (test code = 49917-2) Abnormal [facility] [id number] 00:51:19* Test Item Value Reference Range Interpretation Comme nts WBC (test code = 6690-2) 14.82 See_Comment H [Automated messa ge] The system which generated this result transmitted reference range: 4.20 - 10.70 10*3/?L. The reference range was not used to interpret this result as normal/abnormal. RBC (test code = 789-8) 5.87 See_Comment H [Automated messa ge] The system which generated this result transmitted reference range: 4.26 - 5.52 10*6/?L. The reference range was not used to interpret this result as normal/abnormal. HGB (test code = 718-7) 17.5 g/dL 12.2-16.4 H HCT (test code = 4544-3) 49.3 % 38.4-49.3 MCV (test code = 787-2) 84.0 fL 81.7-95.6 MCH (test code = 785-6) 29.8 pg 26.1-32.7 MCHC (test code = 786-4) 35.5 g/dL 31.2-35.0 H RDW-SD (test code = 24300-9) 38.2 fL 38.5-51.6 L RDW-CV (test code = 788-0) 12.6 % 12.1-15.4 PLT (test code = 777-3) 303 See_Comment [Automated messa ge] The system which generated this result transmitted reference range: 150 - 328 10*3/?L. The reference range was not used to interpret this result as normal/abnormal. MPV (test code = 44966-7) 9.7 fL 9.8-13.0 L NRBC/100 WBC (test code = 9164251455) 0.0 See_Comment [Automated [employer] ssage] The system which generated this result transmitted reference range: 0.0 - 10.0 /100 WBCs. The reference range was not used to interpret this result as normal/abnormal. NRBC x10^3 (test code = 7437427212) See_Comment [Automated [employer] ge] The system which generated this result transmitted reference range: 10*3/?L. The reference range was not used to interpret this result as normal/abnormal. SEG % (test code = 40312-6) 58 % 33-76 BAND % (test code = 54959-4) 3 % 0-1 H LYMPH % (test code = 41117-5) 26 % 14-54 REACT LYMPH % (test code = 9061059474) 3 % LG GRAN LYMPH % (test code = 86605-0) 2 % <=0 H MONO % (test code = 75927-0) 6 % 0-4 H EOS % (test code = 89379-4) 2 % 0-3 ANC (test code = 753-4) 9.04 10*3/uL 1.99-6.95 H Lab Interpretation (test code = 41633-6) Abnormal [facility] [id number] 00:35:48* Test Item Value Reference Range Interpretation Comme nts TROPONIN I (test code = 5128272492) 0.005 ng/mL <=0.034 GILBERTO (test code = GILBERTO) [...] of biotin. Lab Interpretation (test code = 19507-1) Normal [facility] [id number] 00:33:12* Test Item Value Reference Range Interpretation Comme nts NT-proBNP (test code = 33448-6) 43 pg/mL <=125 Lab Interpretation (test cod e = 70253-3) Normal [facility] METABOLIC PANEL (04724)2023-02-22 00:30:20* Test Item Value Reference Range Interpretation Comme nts NA (test code = 9092279313) 140 mmol/L 135-145 K (test code = 4606149164) 2.8 mmol/L 3.5-5.0 LL CL (test code = 8442253738) 100 mmol/L 98-108 CO2 TOTAL (test code = 8166994743) 29 mmol/L 23-31 AGAP (test code = 1932146193) 11 2-16 BUN (test code = 9814384978) 13 mg/dL 7-23 GLUCOSE (test code = 2006623172) 118 mg/dL 70-110 H CREATININE (test code = 4060579130) 0.99 mg/dL 0.60-1.25 TOTAL BILI (test code = 6009137091) 1.0 mg/dL 0.1-1.1 CALCIUM (test code = 9507436975) 9.2 mg/dL 8.6-10.6 T PROTEIN (test code = 9816418894) 7.9 g/dL 6.3-8.2 ALBUMIN (test code = 6803712348) 4.2 g/dL 3.5-5.0 ALK PHOS (test code = 0025993380) 63 U/L 34-122 ALTv (test code = 1742-6) 84 U/L 5-50 H AST(SGOT) (test code = 4302220519) 56 U/L 13-40 H eGFR (test code = 4649050491) 90.7 mL/min/1.73m2 GILBERTO (test code = GILBERTO) Association of [...] or abnormalities in imaging tests). Lab Interpretation (test code = 40744-0) [facility] 00:25:29* Test Item Value Reference Range Interpretation Comme nts MAGNESIUM (test code = 7433927612) 1.9 mg/dL 1.7-2.4 Lab Interpretation (test cod e = 86115-7) Normal [facility] 00:24:48* Test Item Value Reference Range Interpretation Comme nts LIPASE (test code = 5142886547) 84 U/L 0-220 Lab Interpretation (test cod e = 46093-5) Normal [facility] [id number] 17:04:01* Test Item Value Reference Range Interpretation Comme nts TROPONIN I (test code = 5526657770) 0.006 ng/mL <=0.034 GILBERTO (test code = [...] of biotin. Lab Interpretation (test code = 52726-0) Normal [facility] [id number] 17:01:03* Test Item Value Reference Range Interpretation Comme nts NT-proBNP (test code = 9295422285) 65 pg/mL <=125 GILBERTO (test code = GILBERTO) Biotin has been reported to cause a negative bias, interpret results relative to patient's use of biotin. Lab Interpretation (test code = 13498-5) [facility] [place] [place]OL[facility] PAN[place] (73840)2022-10-26 16:52:57* Test Item Value Reference Range Interpretation Comme nts NA (test code = 5081163282) 139 mmol/L 135-145 K (test code = 8043762430) 3.7 mmol/L 3.5-5.0 CL (test code = 8360149310) 103 mmol/L 98-108 CO2 TOTAL (test code = 0479648906) 28 mmol/L 23-31 AGAP (test code = 9563115242) 8 2-16 BUN (test code = 2292248086) 12 mg/dL 7-23 GLUCOSE (test code = 6028410791) 116 mg/dL 70-110 H CREATININE (test code = 2366251908) 0.72 mg/dL 0.60-1.25 TOTAL BILI (test code = 8193085631) 1.5 mg/dL 0.1-1.1 H CALCIUM (test code = 8918189265) 9.2 mg/dL 8.6-10.6 T PROTEIN (test code = 4382156457) 7.2 g/dL 6.3-8.2 ALBUMIN (test code = 2170335726) 4.0 g/dL 3.5-5.0 ALK PHOS (test code = 3831456407) 67 U/L 34-122 ALTv (test code = 1742-6) 64 U/L 5-50 H AST(SGOT) (test code = 1359196699) 36 U/L 13-40 eGFR (test code = 4812318882) 131.0 mL/min/1.73m2 GILBERTO (test code = GILBERTO) Association of [...] or abnormalities in imaging tests). Lab Interpretation (test code = 23916-3) Abnormal [facility] [place] 16:52:36* Test Item Value Reference Range Interpretation Comme nts LIPASE (test code = 8097945603) 90 U/L 0-220 Lab Interpretation (test cod e = 19952-0) Normal [facility] [place] 16:52:00* Test Item Value Reference Range Interpretation Comme nts TOBIAS (test code = 7469677706) 56 U/L 35-110 Lab Interpretation (test cod e = 60815-0) [facility] [place] WITH [id number] 16:46:00* Test Item Value Reference Range Interpretation Comme nts WBC (test code = 6690-2) 11.36 See_Comment H [Automated messa ge] The system which generated this result transmitted reference range: 4.20 - 10.70 10*3/?L. The reference range was not used to interpret this result as normal/abnormal. RBC (test code = 789-8) 5.89 See_Comment H [Automated messa ge] The system which generated this result transmitted reference range: 4.26 - 5.52 10*6/?L. The reference range was not used to interpret this result as normal/abnormal. HGB (test code = 718-7) 17.3 g/dL 12.2-16.4 H HCT (test code = 4544-3) 48.9 % 38.4-49.3 MCV (test code = 787-2) 83.0 fL 81.7-95.6 MCH (test code = 785-6) 29.4 pg 26.1-32.7 MCHC (test code = 786-4) 35.4 g/dL 31.2-35.0 H RDW-SD (test code = 50135-8) 38.0 fL 38.5-51.6 L RDW-CV (test code = 788-0) 12.6 % 12.1-15.4 PLT (test code = 777-3) 297 See_Comment [Automated messa ge] The system which generated this result transmitted reference range: 150 - 328 10*3/?L. The reference range was not used to interpret this result as normal/abnormal. MPV (test code = 80533-0) 9.9 fL 9.8-13.0 NRBC/100 WBC (test code = 0731402474) 0.0 See_Comment [Automated [employer] ssage] The system which generated this result transmitted reference range: 0.0 - 10.0 /100 WBCs. The reference range was not used to interpret this result as normal/abnormal. NRBC x10^3 (test code = 8494010961) See_Comment [Automated messa ge] The system which generated this result transmitted reference range: 10*3/?L. The reference range was not used to interpret this result as normal/abnormal. GRAN MAT (NEUT) % (test code = 770-8) 53.6 % IMM GRAN % (test code = 4331598578) 0.90 % LYMPH % (test code = 736-9) 34.2 % MONO % (test code = 5905-5) 8.6 % EOS % (test code = 713-8) 1.9 % BASO % (test code = 706-2) 0.8 % GRAN MAT x10^3(ANC) (test code = 4368615059) 6.09 10*3/uL 1.99-6.95 IMM GRAN x10^3 (test code = 7535913774) 0.10 10*3/uL 0.00-0.06 H LYMPH x10^3 (test code = 731-0) 3.88 10*3/uL 1.09-3.23 H MONO x10^3 (test code = 742-7) 0.98 10*3/uL 0.36-1.02 EOS x10^3 (test code = 711-2) 0.22 10*3/uL 0.06-0.53 BASO x10^3 (test code = 704-7) 0.09 10*3/uL 0.01-0.09 Lab Interpretation (test code = 26796-2) Abnormal [facility] [place]"
[2024-01-09] MEDS ORDERED: cloNIDine HCL 0.1 MG TAB ONE (01:03)
[2024-01-09] MEDS ORDERED: ONDANSETRON 4 MG (ODT) TAB ONE (01:03)
[2024-01-09 01:19] LABS: SARS-CoV-2 Antigen CONTROL BLUE LINE VIS/BG OK; SARS-CoV-2 Antigen Rapid Res Positive (Negative)
--- NOTE | 2024-01-09 01:19 | EDPHYS ---
Physician Documentation [facility] Name: Kathe Cotto Age: 28 yrs Sex: Male : 1995 Arrival Date: 01/08/2024 Time: 23:08 Bed DX4 Private MD: ED Physician Jevon Hunt HPI: 01/07 23:48 This 28 yrs old Male presents to ER via Ambulatory with complaints of Fever, sb4 Nausea/Vomiting, PT NEEDS WORK NOTE. 23:48 had some nausea and vomiting earlier today but feels better now, is requesting a covid sb4 test and work note. denies any chest pain, shortness of breath, sore throat. does have history of hypertension, is not sure what he takes. Historical: - Allergies: 23:44 No Known Allergies; vc1 - Home Meds: 23:44 blood pressure medicine [Active]; vc1 - PMHx: 23:44 Hypertension; intussusception; vc1 - PSHx: 23:44 Appendectomy; vc1 - Immunization history:: Client reports receiving the 2nd dose of the Covid vaccine. - Infectious Disease History:: Denies. - Social history:: Smoking status: Patient reports the use of cigarette tobacco products, denies chronic smoking, but will smoke occasionally. ROS: 23:48 Constitutional: Negative for fever, chills, and weight loss, sb4 23:48 All other systems are negative, Exam: 23:48 Constitutional: This is a well developed, well nourished patient who is awake, alert, sb4 and in no acute distress. Head/Face: Normocephalic, atraumatic. Eyes: Extra-ocular motions intact. Periorbital areas with no swelling, redness, or edema. ENT: Mucous membranes moist. Cardiovascular: Regular rate and rhythm with a normal S1 and S2. Respiratory: Lungs have equal breath sounds bilaterally, clear to auscultation and percussion. No rales, rhonchi or wheezes noted. No increased work of breathing, no retractions or nasal flaring. Abdomen/GI: Soft, non-tender, no distension. Skin: Warm, dry with normal turgor. Normal color with no rashes, no lesions, and no evidence of cellulitis. Vital Signs: 23:41 Weight 151.95 kg; Height 6 ft. 1 in. ; Pain 0/10; vc1 23:49 BP 210 / 108; Pulse 104; Resp 18; Temp 98.3; Pulse Ox 98% ; vc1 01/08 01:44 BP 198 / 101; Pulse 99; Resp 18; Pulse Ox 100% ; vc1 01/07 23:41 Body Mass Index 44.20 (151.95 kg, 185.42 cm) vc1 01/07 23:41 Pain Scale: Adult vc1 MDM: 01/07 23:41 Patient medically screened. sb4 23:49 Data reviewed: vital signs, nurses notes, lab test result(s), and as a result, I will sb4 discharge patient. Counseling: I had a detailed discussion with the patient and/or guardian regarding the historical points, exam findings, and any diagnostic results supporting the discharge/admit diagnosis, lab results, to return to the emergency department if symptoms worsen or persist or if there are any questions or concerns that arise at home. 01/07 23:43 Order name: SARS RAPID; Complete Time: vc1 01/07 23:43 Order name: Flu vc1 Administered Medications: 01/08 01:12 Drug: cloNIDine PO 0.2 mg PO once Route: PO; cg 01:44 Follow up: Response: No adverse reaction; Blood pressure is lowered vc1 01:12 Drug: Ondansetron PO 4 mg PO once Route: PO; cg 01:44 Follow up: Response: No adverse reaction; Nausea is decreased vc1 Disposition: 01/09 01:19 Co-signature as Attending Physician, Jevon Hunt MD I agree with the assessment and christa plan of care. Disposition Summary: 01/09/24 01:19 Discharge Ordered Notes: Location: Home sb4 Problem: new sb4 Symptoms: have improved sb4 Condition: Stable sb4 Diagnosis - SARS-associated coronavirus as the cause of diseases classified elsewhere sb4 Followup: sb4 - With: Emergency Department - When: As needed - Reason: Trouble breathing, Worsening of condition Discharge Instructions: - Discharge Summary Sheet sb4 - 10 Things You Can Do to Manage Your COVID-19 Symptoms at Home - [facility] (12/03/2020) sb4 Forms: - Work release form sb4 - Patient Portal Instructions sb4 - Leadership Thank You Letter sb4 Prescriptions: - Paxlovid 300 mg (150 mg x 2)-100 mg Oral Tablet, Dose Pack - take 1 dose pack ORAL route per package directions; 1 Pack; Refills: 0, Product sb4 Selection Permitted - Zofran 4 mg Oral Tablet - take 1 tablet ORAL route every 12 hours As needed; 20 tablet; Refills: 0, sb4 Product Selection Permitted - Tessalon Perles 100 mg Oral Capsule - take 1 capsule ORAL route every 8 hours As needed; 15 capsule; Refills: 0, sb4 Product Selection Permitted Signatures: Dispatcher [employer] EDJevon Iglesias MD MD cha Garcia, Cindy, RN RN Amarilys Andrews RN RN vc1 Silvia Darling PA-C PAJarrod sb4 Corrections: (The following items were deleted from the chart) 01/07 23:44 23:44 Home Meds: None; vc1 vc1 23:50 23:48 had some nausea and vomiting earlier today but feels better now, is requesting a sb4 covid test and work note. denies any chest pain, shortness of breath, sore throat, chronic medical issues. sb4
--- NOTE | 2024-01-09 01:19 | ER ---
Nurse's Notes [facility] Name: Kathe Cotto Age: 28 yrs Sex: Male : 1995 Arrival Date: 01/08/2024 Time: 23:08 Bed DX4 Private MD: Diagnosis: SARS-associated coronavirus as the cause of diseases classified elsewhere Presentation: 01/07 23:41 Chief complaint: Patient states: Throwing up, short of breath. Want a covid test. vc1 Coronavirus screen: Client denies travel out of the [place] in the last 14 days. muscle pain, nausea, vomiting. Client presents with at least one sign or symptom that may indicate coronavirus-19. Ebola Screen: Patient negative for fever greater than or equal to 101.5 degrees Fahrenheit, and additional compatible Ebola Virus Disease symptoms Patient denies exposure to infectious person. Patient denies travel to an Ebola-affected area in the 21 days before illness onset. No symptoms or risks identified at this time. Initial Sepsis Screen: Does the patient meet any 2 criteria? No. Patient's initial sepsis screen is negative. Does the patient have a suspected source of infection? No. Patient's initial sepsis screen is negative. Risk Assessment: Do you want to hurt yourself or someone else? Patient reports no desire to harm self or others. Onset of symptoms was January 08, 2024 at 20:30. Care prior to arrival: None. Activity prior to arrival: vomiting. Mechanism of Injury: No Mechanism of Injury. Transition of care: patient was not received from another setting of care. 23:41 Method Of Arrival: Ambulatory vc1 23:41 Acuity: ISAAC 4 vc1 Triage Assessment: 01/08 01:42 General: Appears in no apparent distress. obese, well groomed, Behavior is calm, vc1 cooperative, appropriate for age. Pain: Denies pain. EENT: No deficits noted. No signs and/or symptoms were reported regarding the EENT system. Neuro: Level of Consciousness is awake, alert, obeys commands, Oriented to person, place, time, situation, Appropriate for age. Cardiovascular: No deficits noted. Heart tones S1 S2. Respiratory: Airway is patent Respiratory effort is even, unlabored, Respiratory pattern is regular, symmetrical, Breath sounds are clear bilaterally. GI: Reports nausea, vomiting. : No deficits noted. No signs and/or symptoms were reported regarding the genitourinary system. Derm: Skin is intact, is healthy with good turgor, Skin is dry, Skin is normal, Skin temperature is warm. Musculoskeletal: No deficits noted. No signs and/or symptoms reported regarding the musculoskeletal system. Historical: - Allergies: 01/07 23:44 No Known Allergies; vc1 - Home Meds: 23:44 blood pressure medicine [Active]; vc1 - PMHx: 23:44 Hypertension; intussusception; vc1 - PSHx: 23:44 Appendectomy; vc1 - Immunization history:: Client reports receiving the 2nd dose of the Covid vaccine. - Infectious Disease History:: Denies. - Social history:: Smoking status: Patient reports the use of cigarette tobacco products, denies chronic smoking, but will smoke occasionally. Screenin:45 [facility] ED Fall Risk Assessment (Adult) History of falling in the last 3 months, vc1 including since admission No falls in past 3 months (0 pts) Confusion or Disorientation No (0 pts) Intoxicated or Sedated No (0 pts) Impaired Gait No (0 pts) Mobility Assist Device Used No (0 pt) Altered Elimination No (0 pt) Score/Fall Risk Level 0 - 2 = Low Risk Oriented to surroundings, Maintained a safe environment, Educated pt \T\ family on fall prevention, incl call for assistance when getting out of bed. Abuse screen: Denies threats or abuse. Nutritional screening: No deficits noted. Tuberculosis screening: No symptoms or risk factors identified. Vital Signs: 23:41 Weight 151.95 kg; Height 6 ft. 1 in. ; Pain 0/10; vc1 23:49 BP 210 / 108; Pulse 104; Resp 18; Temp 98.3; Pulse Ox 98% ; vc1 01/08 01:44 BP 198 / 101; Pulse 99; Resp 18; Pulse Ox 100% ; vc1 01/07 23:41 Body Mass Index 44.20 (151.95 kg, 185.42 cm) vc1 01/07 23:41 Pain Scale: Adult vc1 ED Course: 01/07 23:11 Patient arrived in ED. im 23:13 Silvia Darling [facility]C [facility] sb4 23:13 Jevon Hunt MD is Attending Physician. sb4 23:43 Triage completed. vc1 23:45 Arm band placed on right wrist. vc1 01/08 01:43 Provided Education on: quarantine for 5 days. vc1 :43 seen in diagnostic chair. vc1 :43 No provider procedures requiring assistance completed. Patient did not have IV access vc1 during this emergency room visit. Administered Medications: 01:12 Drug: cloNIDine PO 0.2 mg PO once Route: PO; cg 01:44 Follow up: Response: No adverse reaction; Blood pressure is lowered vc1 01:12 Drug: Ondansetron PO 4 mg PO once Route: PO; cg :44 Follow up: Response: No adverse reaction; Nausea is decreased vc1 Medication: 01/07 23:45 VIS not applicable for this client. vc1 Outcome: 01/08 01:19 Discharge ordered by . sb4 :43 Discharged to home ambulatory, vc1 :43 Condition: good :43 Discharge instructions given to patient, Instructed on discharge instructions, follow up and referral plans. medication usage, Demonstrated understanding of instructions, follow-up care, medications, Prescriptions given X 3, :44 Patient left the ED. vc1 Signatures: Lyssa Middleton, RN RN cg Amarilys Andrews RN RN vc1 Silvia Darling, PA-C PA-C sbDulce Maria Puente Corrections: (The following items were deleted from the chart) 01/07 23:44 23:44 Home Meds: None; vc1 vc1
[2024-01-09 02:15] VITALS: TEMP 98.3
[2024-01-09 02:16] VITALS: BP 198/101; O2SAT 100
== END 2024-01-09 01:44 | disposition home or self-care (01) ==
LOC: ER 23:08
DX: U07.1 COVID-19 (principal); I10 Essential (primary) hypertension; F17.210 Nicotine dependence, cigarettes, uncomplicated
CPT/HCPCS: 36415; 87804 ×2; 87811; Q0162

== ENCOUNTER 2024-12-28 20:45 | Emergency (ER) | payer OTHER ==
--- OUTSIDE RECORDS SUMMARY | 2024-12-28 20:49 | XMS REPORT | Continuity of Care Document ---
Author Name Unknown Address [address] [facility] [address] [place] [address] Organization [facility] [place] Address [address] [facility] [address] [place] [address] Care Team Providers Care Production Or Plant Engineer Name Role Phone Pcp, Patient Does Not Have A Primary Care Physic ramiro Jeanna CERVANTES, Sendshyla K.H. Attending Clinician [phone] VIOLETA MEEKS K.H. Attending Clinician UnavailMADELEINE Lee Attending Clinician Unavailable Jorge Mukherjee DO Attending Clinician [phone] Madeleine Burleson DO Attending Clinician [phone] Yoseph Israel MD Attending Clinician [phone] Doctor Unassigned, [place] Attending Clinician U Yusra Oconnor Attending Clinician Unavailable Catarino Delgado MD Attending Clinician [phone] Yusra Hall Attending Clinician [phone] Jeanna CERVANTES, Violeta K.HCaden Attending Clinician [phone] Ronal Kong MD Attending Clinician [phone] YOSEPH ISRAEL Admitting Clinician Unavailable Yoseph Israel MD Admitting Clinician Yusra SERVIN Admitting Clinician Unavailable Payers Payer Name Policy Type Policy Number Effective Date Expirati on Date Source Problems Condition Name Condition Details Condition Category Status Onset Date Resolution Date Last Treatment Date Treating Clinician Comments Source KAYY (obstructi ve sleep apnea) KAYY (obstructi ve sleep apnea) Disease Active 2022-05 0-05 00:00: 00 [facility] Hypertensi ve urgency Hypertensi ve urgency Disease Active 2022-05 0-05 00:00: 00 [facility] Chest pain Chest pain Disease Active 2022-05 0-05 00:00: 00 [facility] Cigarette smoker Cigarette smoker Disease Active 2022-05 0-05 00:00: 00 [facility] Hypokalemi a Hypokalemi a Disease Active 2022-05 0-05 00:00: 00 [facility] Elevated blood pressure reading Elevated blood pressure reading Disease Active 2022-05 0-04 00:00: 00 [facility] Morbid obesity with body mass index of 40.0-49.9 Morbid obesity with body mass index of 40.0-49.9 Disease Active 2022-05 0-04 00:00: 00 [facility] No known active problems No known active problems Disease [facility] Allergies, Adverse Reactions, Alerts Allergy Name Allergy Type Status Severity Reaction(s) Onset Date Inactive Date Treating Clinician Comments Source NO KNOWN ALLERGIE S Drug Class Active [facility] Social History Social Habit Start Date Stop Date Quantity Comments Source Gender identity [facility] Exposure to SARS-CoV-2 (event) Not sure [facility] History of tobacco use Smokes tobacco daily [facility] History of Social function 2021-08-22 00:00:00 2021-08-22 00:00:00 [facility] Tobacco use and exposure 2021-08-22 00:00:00 2021-08-22 00:00:00 Smokeless tobacco non-user [facility] Sex assigned at 1995 00:00:00 1995 00:00:00 [facility] Smoking Status Start Date Stop Date Source Smokes tobacco daily 2021-08-22 00:00:00 [facility] Medications Ordered Medication Name Filled Medication Name Start Date Stop Date Current Medication? Ordering Clinician Indication Dosage Frequency Signature (SIG) Comments Components Source amLODIPine 10 mg tablet 2022-05 00:00: 00 03-26 05:59 :00 No [id number] 10mg Take 1 tablet by mouth in the morning for 30 days. [facility] spironolact one 25 mg tablet 2022-05 00:00: 00 03-26 05:59 :00 No [id number] 25mg Take 1 tablet by mouth in the morning for 30 days. [facility] nicotine (NICODERM) 14 mg/24 hr patch 1 Patch 2022-05 17:15: 00 Yes 1{patch } 1 Patch, Topical, Administer over 24 Hours, Q24H, First dose on Shell 02/22/23 at 1215, Until Discontinu ed, Routine [facility] amLODIPine (NORVASC) tablet 10 mg 2022-05 14:00: 00 Yes 10mg 10 mg, Oral, DAILY, First dose (after last modificati on) on Shell 02/22/23 at 0900, Until Discontinu ed, Routine [facility] spironolact one (ALDACTONE) tablet 25 mg 2022-05 14:00: 00 Yes 25mg 25 mg, Oral, DAILY, First dose on Shell 02/22/23 at 0900, Until Discontinu ed, Routine [facility] lisinopriL (PRINIVIL,Z ESTRIL) tablet 40 mg 2022-05 14:00: 00 Yes 40mg 40 mg, Oral, DAILY, First dose on Shell 02/22/23 at 0900, Until Discontinu ed, Routine [facility] aspirin chewable tablet 81 mg 2022-05 14:00: 00 Yes 81mg 81 mg, Oral, DAILY, First dose on Shell 02/22/23 at 0900, Until Discontinu ed, Routine [facility] enoxaparin (LOVENOX) injection 40 mg 2022-05 0 13:00: 00 Yes 40mg 40 mg, Subcutaneo us, Q12H, First dose (after last modificati on) on Sun02/22/23 at 0800, Until Discontinu ed, Routine [facility] potassium chloride in water 10 mEq/100 mL RTU 10 mEq 2022-05 12:45: 00 02-22 16:42 :00 No 10meq 10 mEq, IV Piggyback, Q1H ES, 4 doses, First dose on Shell 02/22/23 at 0745, Last dose on Sun02/22/23 at 1045, Administer over 60 Minutes, 100 mL [facility] it[facility] cloNIDine (CATAPRES) tablet 0.1 mg 2022-05 12:29: 25 Yes .1mg 0.1 mg, Oral, TIDPRN, Starting on Sun02/22/23 at 0729, Until Discontinu ed, Routine, For SBP > 160 or DBP > 110. Hold for SBP < 110, DBP < 60 [facility] it[facility] labetaloL (NORMODYNE) injection 10 mg 2022-05 0 08:09: 44 Yes 10mg 10 mg, Slow IV Push, Q4HPRN, Starting on Sun02/22/23 at 0309, Until Discontinu ed, Routine, For SBP > 110, DBP > 110. Hold for HR < [facility] amLODIPine (NORVASC) tablet 5 mg 2022-05 0-05 05:15: 00 02-22 12:44 :41 No 5mg 5 mg, Oral, BID, First dose (after last modificati on) on Shell 02/22/23 at 0015, Until Discontinu ed, Routine [facility] morpHINE (2 mg/mL) injection 2 mg 2022-05 0-05 05:02: 56 02-23 05:01 :56 No 2mg 2 mg, Slow IV Push, Q4HPRN, Starting on Shell 02/22/23 at 0002, Until Sun02/23/23 at 0001, Routine, Pain (scale 7-10), Chest pain [facility] traMADoL (ULTRAM) tablet 50 mg 2022-05 0-05 05:02: 54 02-24 05:01 :54 No 50mg 50 mg, Oral, Q8HPRN, Starting on Shell 02/22/23 at 0002, Until 02/24/23 at 0001, Routine, Pain (scale 4-6) [facility] acetaminoph en (TYLENOL) tablet 650 mg 2022-05 0-05 05:02: 52 Yes 650mg 650 mg, Oral, Q6HPRN, Starting on Shell 02/22/23 at 0002, Until Discontinu ed, Routine, Pain (scale 1-3) [facility] hydralAZINE (APRESOLINE ) injection 10 mg 2022-05 0-05 03:40: 10 Yes 10mg 10 mg, Slow IV Push, Q4HPRN, Starting on Sun02/21/23 at 2240, Until Discontinu ed, Routine, DBP=>100; SBP=>160 [facility] metoprolol tartrate (LOPRESSOR) tablet 25 mg 2022-05 0-05 02:15: 00 Yes 25mg 25 mg, Oral, BID, First dose on Sun02/21/23 at 2115, Until Discontinu ed, Routine [facility] KCL (KLOR-CON M20) tablet 60 mEq 2022-05 0-05 00:45: 00 02-22 01:02 :00 No 60meq 60 mEq, Oral, ONCE, 1 dose, On Sun02/21/23 at 1945, ILYA [facility] aspirin tablet 325 mg 2022-05 0-05 00:15: 00 02-22 00:18 :00 No 325mg 325 mg, Oral, ONCE, 1 dose, On Sun02/21/23 at 1915, STAT [facility] nitroglycer in (NITROSTAT) sublingual tablet 0.4 mg 2022-05 0-05 00:13: 39 Yes .4mg 0.4 mg, Sublingual , Q5MIN PRN, 3 doses, Starting on Sun02/21/23 at 1913, Until Discontinu ed, ILYA, Chest pain [facility] hydrALAZINE 25 mg tablet 2022-05 0-05 00:00: 00 03-25 04:59 :00 No [id number] 25mg Take 1 tablet by mouth in the morning and 1 tablet in the evening. Do all this for 30 days. [facility] metoprolol tartrate 25 mg tablet 2022-05 0-05 00:00: 00 03-25 04:59 :00 No [id number] 25mg Take 1 tablet by mouth in the morning and 1 tablet in the evening. Do all this for 30 days. [facility] NaCl 0.9% (NS) bolus infusion 500 mL 2022-05 23:45: 00 02-22 02:00 :00 No 500mL at 999 mL/hr, 500 mL, IV Infusion, ONCE, 1 dose, On Sun02/21/23 at 1845, STAT [facility] amLODIPine (NORVASC) tablet 5 mg 10-27 14:00: 00 Yes 5mg 5 mg, Oral, DAILY, First dose on Sun10/27/22 at 0900, Until Discontinu ed, Routine [facility] hydralAZINE (APRESOLINE ) injection 10 mg 10-26 19:30: 00 10-26 19:33 :00 No 10mg 10 mg, Slow IV Push, ONCE, 1 dose, On Sun10/26/22 at 1430, ILYA [facility] hydralAZINE (APRESOLINE ) injection 10 mg 10-26 19:00: 00 10-26 18:53 :00 No 10mg 10 mg, Slow IV Push, ONCE, 1 dose, On Sun10/26/22 at 1400, ILYA [facility] iopamidol (ISOVUE 370-500 mL) injection 100 mL 10-26 17:45: 00 10-26 17:45 :00 No [id number] 100mL 100 mL, Intravenou s, ONCE, 1 dose, On Shell 10/26/22 at 1245, Routine [facility] amLODIPine 5 mg tablet 10-26 00:00: 00 Yes [id number] 5mg Take 1 tablet by mouth at bedtime. [facility] AMLODIPINE 5 mg tablet 720 00:00: 00 Yes [id number] TAKE 1 TABLET BY MOUTH TWICE A DAY [facility] amLODIPine 5 mg tablet 4-04 00:00: 00 Yes [id number] 5mg Take 1 tablet by mouth 2 (two) times daily. [facility] loratadine- pseudoephed rine (CLARITIN-D 24 HOUR) 10-240 mg per 24 hr tablet 01-11 00:00: 00 Yes [id number] 1{tbl} Take 1 tablet by mouth daily. [facility] albuterol 90 mcg/actuati on inhaler 01-11 00:00: 00 Yes [id number] 2{puff} Inhale 2 Puffs every 4 (four) hours as needed for Wheezing or Shortness of Breath. [facility] Vital Signs Vital Name Observation Time Observation Value Comments S ource Systolic blood pressure 2023-02-22 17:41:00 148 mm[Hg] [facility] Diastolic blood pressure 2023-02-22 17:41:00 91 mm[Hg] [facility] Heart rate 2023-02-22 17:41:00 75 /min [facility] Body temperature 2023-02-22 17:41:00 35.83 Ela [facility] Oxygen saturation in Arterial blood by Pulse oximetry 2023-02-22 17:41:00 98 /min [facility] Respiratory rate 2023-02-22 16:51:00 18 /min [facility] Body weight 2023-02-22 08:24:00 158.804 kg [facility] BMI 2023-02-22 08:24:00 47.48 kg/m2 [facility] Body height 2023-02-22 02:34:00 182.9 cm [facility] Systolic blood pressure 2022-10-26 20:00:00 181 mm[Hg] erp aware and pt stable for dc [facility] Diastolic blood pressure 2022-10-26 20:00:00 112 mm[Hg] erp aware and pt stable for dc [facility] Heart rate 2022-10-26 20:00:00 90 /min [facility] Respiratory rate 2022-10-26 20:00:00 16 /min [facility] Oxygen saturation in Arterial blood by Pulse oximetry 2022-10-26 20:00:00 99 /min [facility] Body temperature 2022-10-26 14:38:00 36.61 Ela [facility] Body height 2022-10-26 14:38:00 182.9 cm [facility] Body weight 2022-10-26 14:38:00 162.932 kg [facility] BMI 2022-10-26 14:38:00 48.72 kg/m2 [facility] Systolic blood pressure 2021-08-22 15:26:00 175 mm[Hg] [facility] Diastolic blood pressure 2021-08-22 15:26:00 123 mm[Hg] [facility] Heart rate 2021-08-22 15:26:00 84 /min [facility] Respiratory rate 2021-08-22 15:19:00 19 /min [facility] Body height 2021-08-22 15:19:00 182.9 cm [facility] Body weight 2021-08-22 15:19:00 154.223 kg [facility] BMI 2021-08-22 15:19:00 46.11 kg/m2 [facility] Oxygen saturation in Arterial blood by Pulse oximetry 2021-08-22 15:19:00 94 /min [facility] Procedures Procedure Date / Time Performed Performing Clinician Source BASIC METABOLIC PANEL (NA, K, CL, CO2, GLUCOSE, BUN, CREATININE, CA) 2023-02-22 19:21:00 Flavia Byrne [facility] TRANSTHORACIC ECHO (TTE) COMPLETE 2023-02-22 14:50:00 Piero [facility] URINE DRUG (IMMUNOASSAY) - COMPREHENSIVE DRUG SCREEN 2023-02-22 10:14:00 Piero [facility] TROPONIN I 2023-02-22 09:46:00 Yoseph Israel [facility] THYROID STIMULATING HORMONE 2023-02-22 09:46:00 Flavia Byrne [facility] TROPONIN I 2023-02-22 05:52:00 [facility]uhair[facility]ail[facility] CHEST 1 VW 2023-02-21 23:54:38 Jorge Mukherjee [facility] LIPASE 2023-02-21 23:44:00 [facility] MAGNESIUM 2023-02-21 23:44:00 [facility] TROPONIN I 2023-02-21 23:44:00 Jorge Mukherjee [facility] COMP. METABOLIC PANEL (62210) 2023-02-21 23:44:00 Singer [facility] LIPID PANEL (97167)(TOTAL CHOLESTEROL, TRIGLYCERIDES, HDL) 2023-02-21 23:44:00 Singer [facility] CBC WITH DIFF 2023-02-21 23:44:00 Singer [facility] N-TERMINAL PRO-BNP 2023-02-21 23:44:00 Singer [facility] LOW-DENSITY LIPOPROTEIN, DIRECT 2023-02-21 23:44:00 Singer [facility] HB ECG ROUTINE & RHYTHM STRIP 2023-02-21 23:25:37 Singer [facility] CONSENT/REFUSAL FOR DIAGNOSIS AND TREATMENT 2023-02-21 23:11:21 Doctor Unassigned, [place] [facility] MEDICATION CORRESPONDENCE 2022-11-18 05:01:00 Do ctor Unassigned, [place] [facility] HB ECG ROUTINE & RHYTHM STRIP 2022-10-26 18:40:48 Yusra Servin [facility] CT ABDOMEN PELVIS W CONTRAST 2022-10-26 16:54:50 Yusra Servin [facility] AMYLASE 2022-10-26 16:13:00 [facility] 2022-10-26 16:13:00 Catarino Delgado Un [facility] TROPONIN I 2022-10-26 16:13:00 [facility] COMP. METABOLIC PANEL (18207) 2022-10-26 16:13:00 Catarino Delgado [facility] CBC WITH DIFF 2022-10-26 16:13:00 Catarino Delgado U [facility] N-TERMINAL PRO-BNP 2022-10-26 16:13:00 Cari Delgado [facility] ASSIGNMENT OF BENEFITS 2022-10-26 15:04:56 Docto r Unassigned, [place] [facility] NOTICE OF PRIVACY PRACTICES 2022-10-26 14:23:31 Doctor Unassigned, [place] [facility] CONSENT/REFUSAL FOR DIAGNOSIS AND TREATMENT 2022-10-26 14:23:10 Doctor Unassigned, [place] [facility] Encounters Start Date/Time End Date/Time Encounter Type Admission Type Attending [facility] Care Department Encounter ID Source 2024-12-12 00:00:00 2024-12-12 15:31:44 [facility] 1..840.114 350.1.13.10 4.2.7.2.686 [id number] [facility] 2023-03-16 10:30:00 2023-03-16 10:30:[address] [facility] [id number] [facility] 2023-03-14 14:00:00 2023-03-14 14:00:[address] [facility] [id number] [facility] 2023-02-21 18:21:00 2023-02-22 15:36:00 Outpatient MADELEINE DEGROOT [facility] [id number] [facility] 2023-02-21 18:21:00 2023-02-22 15:36:00 Emergency Jorge Mukherjee David Ed[facility], [facility] ..840.114 350.1.13.10 4.2.7.2.686 [id number] [facility] 2023-02-21 17:20:45 2023-02-21 17:20:45 Outpatient [facility] [id number] Cesar Aguayo 2022-12-05 14:11:08 2022-12-05 14:11:08 Outpatient [facility] [id number] Cesar Aguayo 2022-11-18 00:00:00 2022-11-18 00:00:00 Orders Only Doctor Unassigned, [place] [facility] 1.20.114 350.1.13.10 4.2.7.2.686 [id number] [facility] 2022-10-26 09:39:00 2022-10-26 16:21:00 Emergency X Yusra SERVIN [facility] ERT [id number] [facility] 2022-10-26 09:39:00 2022-10-26 16:21:00 Emergency Catarino Delgado K Paige [facility] 1.840.114 350.1.13.10 4.2.7.2.686 [id number] [facility] 2021-12-07 00:00:00 2021-12-07 00:00:00 Refill Violeta Meeks [facility] 1..840.114 350.1.13.10 4.2.7.2.686 [id number] [facility] 2021-08-22 10:00:00 2021-08-22 10:53:23 Outpatient R VIOLETA MEEKS [facility] [id number] [facility] 2021-08-22 10:00:00 2021-08-22 10:53:23 Office Visit Violeta Meeks [facility] 1.840.114 350.1.13.10 4.2.7.2.686 [id number] [facility] 2021-08-22 10:00:00 2021-08-22 10:53:23 [address] [facility] [id number] [facility] 2021-08-22 00:00:00 2021-08-22 00:00:00 Orders Only Doctor Unassigned, [place] [facility] 1.2840.114 350.1.13.10 4.2.7.2.686 [id number] [facility] 2019-01-11 07:57:51 2019-01-11 08:50:00 Emergency Ronal Kong [facility] 1.2840.114 350.1.13.10 4.2.7.2.686 [id number] [facility] Results Test Description Test Time Test Comments Results Result Co mments Source [facility] [id number] 16:59:52 * Test Item Value Reference Range Interpretation Comme nts TSH (test code = 2104126616) 1.44 See_Comment Biotin has been reported to cause a negative bias, interpret results relative to patient's use of biotin. [Automated message] The system which generated this result transmitted reference range: 0.45 - 4.70 mIU/L. The reference range was not used to interpret this result as normal/abnormal. Lab Interpretation (test code = 91210-4) Normal [facility] [id number] 10:22:48* Test Item Value Reference Range Interpretation Comme nts TROPONIN I (test code = 0333957924) 0.006 ng/mL <=0.034 GILBERTO (test code = [...] of biotin. Lab Interpretation (test code = 65857-2) Normal [facility]ENS[facility] LIPOPROTEIN, [id number] 08:17:42* Test Item Value Reference Range Interpretation Comme nts dLDL Chol (test code = 17052-5) 88 mg/dL <=130 Lab Interpretation (test cod e = 45001-1) Normal [facility] [id number] 06:29:08* Test Item Value Reference Range Interpretation Comme nts TROPONIN I (test code = 3432184028) <=0.034 GILBERTO (test code = GILBERTO) Reference [...] of biotin. Lab Interpretation (test code = 42653-5) Normal [facility] Hospital[facility]IP[facility] PAN[facility] (69404)(TOTAL CHOLESTEROL, TRIGLYCERIDES, HDL)2023-02-22 01:43:21* Test Item Value Reference Range Interpretation Comme nts CHOL (test code = 8230905394) 197 mg/dL 120-200 HDL (test code = 6019171476) 19 mg/dL >=40 L HDLC RATIO (test code = 1511514425) 10.4 <=5.0 H TRIG (test code = 8591415197) 481 mg/dL 30-170 H LDL CHOL (test code = 90777-5) Unable to calcul ate LDL due to elevated triglyceride level greater than 400 mg/dL. VLDL (test code = 8971715067) 96 mg/dL 5-60 H Lab Interpretation (test code = 42445-2) Abnormal [facility] WITH [id number] 00:51:19* Test Item Value Reference Range Interpretation [...] g/dL 31.2-35.0 H RDW-SD (test code = 77583-7) 38.2 fL 38.5-51.6 L RDW-CV (test code = 788-0) 12.6 % 12.1-15.4 PLT (test code = 777-3) 303 See_Comment [Automated messa ge] The system which generated this result transmitted reference range: 150 - 328 10*3/?L. The reference range was not used to interpret this result as normal/abnormal. MPV (test code = 95459-1) 9.7 fL 9.8-13.0 L NRBC/100 WBC (test code = 8224030627) 0.0 See_Comment [Automated [employer] ssage] The system which generated this result transmitted reference range: 0.0 - 10.0 /100 WBCs. The reference range was not used to interpret this result as normal/abnormal. NRBC x10^3 (test code = 9850007997) See_Comment [Automated messa ge] The system which generated this result transmitted reference range: 10*3/?L. The reference range was not used to interpret this result as normal/abnormal. SEG % (test code = 85505-3) 58 % 33-76 BAND % (test code = 39746-4) 3 % 0-1 H LYMPH % (test code = 26626-7) 26 % 14-54 REACT LYMPH % (test code = 7400673759) 3 % LG GRAN LYMPH % (test code = 44019-6) 2 % <=0 H MONO % (test code = 44498-7) 6 % 0-4 H EOS % (test code = 41685-4) 2 % 0-3 ANC (test code = 753-4) 9.04 10*3/uL 1.99-6.95 H Lab Interpretation (test code = 73175-6) Abnormal [facility] [id number] 00:35:48* Test Item Value Reference Range Interpretation Comme nts TROPONIN I (test code = 8117906742) 0.005 ng/mL <=0.034 GILBERTO (test code = [...] of biotin. Lab Interpretation (test code = 77687-6) Normal [facility] Hospital[facility]AL [id number] 00:33:12* Test Item Value Reference Range Interpretation Comme nts NT-proBNP (test code = 75266-4) 43 pg/mL <=125 Lab Interpretation (test cod e = 55663-8) Normal [facility] METABOLIC PANEL (15936)2023-02-22 00:30:20* Test Item Value Reference Range Interpretation Comme nts NA (test code = 2387805777) 140 mmol/L 135-145 K (test code = 1503975954) 2.8 mmol/L 3.5-5.0 LL CL (test code = 7922309219) 100 mmol/L 98-108 CO2 TOTAL (test code = 1448176016) 29 mmol/L 23-31 AGAP (test code = 8309879416) 11 2-16 BUN (test code = 2132624529) 13 mg/dL 7-23 GLUCOSE (test code = 3856231750) 118 mg/dL 70-110 H CREATININE (test code = 9300176713) 0.99 mg/dL 0.60-1.25 TOTAL BILI (test code = 8835511944) 1.0 mg/dL 0.1-1.1 CALCIUM (test code = 7362922768) 9.2 mg/dL 8.6-10.6 T PROTEIN (test code = 5371881969) 7.9 g/dL 6.3-8.2 ALBUMIN (test code = 7951099021) 4.2 g/dL 3.5-5.0 ALK PHOS (test code = 3966322618) 63 U/L 34-122 ALTv (test code = 1742-6) 84 U/L 5-50 H AST(SGOT) (test code = 3473582615) 56 U/L 13-40 H eGFR (test code = 0048722028) 90.7 mL/min/1.73m2 GILBERTO (test code = GILBERTO) [...] imaging tests). Lab Interpretation (test code = 41469-1) Abnormal [facility]2023-[facility]-05 00:25:29* Test Item Value Reference Range Interpretation Comme nts MAGNESIUM (test code = 9836721873) 1.9 mg/dL 1.7-2.4 Lab Interpretation (test cod e = 80107-0) Normal [facility]2023-10-05 00:24:48* Test Item Value Reference Range Interpretation Comme nts LIPASE (test code = 6633410524) 84 U/L 0-220 Lab Interpretation (test cod e = 87596-6) Normal [facility] [id number] 17:04:01* Test Item Value Reference Range Interpretation Comme nts TROPONIN I (test code = 8600804481) 0.006 ng/mL <=0.034 GILBERTO (test code = [...] of biotin. Lab Interpretation (test code = 08703-8) Normal [facility]MINAL [id number] 17:01:03* Test Item Value Reference Range Interpretation Comme nts NT-proBNP (test code = 3661266254) 65 pg/mL <=125 GILBERTO (test code = GILBERTO) Biotin has been reported to cause a negative bias, interpret results relative to patient's use of biotin. Lab Interpretation (test code = 66404-8) Normal [facility]. METABOLIC PANEL (65901)2022-10-26 16:52:57* Test Item Value Reference Range Interpretation Comme nts NA (test code = 6817785487) 139 mmol/L 135-145 K (test code = 6259719136) 3.7 mmol/L 3.5-5.0 CL (test code = 1580524486) 103 mmol/L 98-108 CO2 TOTAL (test code = 6135651236) 28 mmol/L 23-31 AGAP (test code = 9240703988) 8 2-16 BUN (test code = 3809332057) 12 mg/dL 7-23 GLUCOSE (test code = 8525508072) 116 mg/dL 70-110 H CREATININE (test code = 0373831422) 0.72 mg/dL 0.60-1.25 TOTAL BILI (test code = 2178530848) 1.5 mg/dL 0.1-1.1 H CALCIUM (test code = 5076996228) 9.2 mg/dL 8.6-10.6 T PROTEIN (test code = 5562822023) 7.2 g/dL 6.3-8.2 ALBUMIN (test code = 5546453206) 4.0 g/dL 3.5-5.0 ALK PHOS (test code = 5094860178) 67 U/L 34-122 ALTv (test code = 1742-6) 64 U/L 5-50 H AST(SGOT) (test code = 8377992892) 36 U/L 13-40 eGFR (test code = 2403691185) 131.0 mL/min/1.73m2 GILBERTO (test code = GILBERTO) [...] imaging tests). Lab Interpretation (test code = 47653-7) [facility]* Test Item Value Reference Range Interpretation Comme nts LIPASE (test code = 7972103870) 90 U/L 0-220 Lab Interpretation (test cod e = 22536-1) [facility]:52:00* Test Item Value Reference Range Interpretation Comme nts TOBIAS (test code = 5402051145) 56 U/L 35-110 Lab Interpretation (test cod e = 95649-6) [facility] [id number] 16:46:00* Test Item Value Reference Range Interpretation Comme nts WBC (test code = 6690-2) 11.36 See_Comment H [Automated [employer]] The system which generated this result transmitted reference range: 4.20 - 10.70 10*3/?L. The reference range was not used to interpret this result as normal/abnormal. RBC (test code = 789-8) 5.89 See_Comment H [Automated [employer] ge] The system which generated this result [...] g/dL 31.2-35.0 H RDW-SD (test code = 17905-8) 38.0 fL 38.5-51.6 L RDW-CV (test code = 788-0) 12.6 % 12.1-15.4 PLT (test code = 777-3) 297 See_Comment [Automated messa ge] The system which generated this result transmitted reference range: 150 - 328 10*3/?L. The reference range was not used to interpret this result as normal/abnormal. MPV (test code = 91390-9) 9.9 fL 9.8-13.0 NRBC/100 WBC (test code = 0606082075) 0.0 See_Comment [Automated [employer] ssage] The system which generated this result transmitted reference range: 0.0 - 10.0 /100 WBCs. The reference range was not used to interpret this result as normal/abnormal. NRBC x10^3 (test code = 1190194594) See_Comment [Automated messa ge] The system which generated this result transmitted reference range: 10*3/?L. The reference range was not used to interpret this result as normal/abnormal. GRAN MAT (NEUT) % (test code = 770-8) 53.6 % IMM GRAN % (test code = 7850900252) 0.90 % LYMPH % (test code = 736-9) 34.2 % MONO % (test code = 5905-5) 8.6 % EOS % (test code = 713-8) 1.9 % BASO % (test code = 706-2) 0.8 % GRAN MAT x10^3(ANC) (test code = 8320795612) 6.09 10*3/uL 1.99-6.95 IMM GRAN x10^3 (test code = 1415226114) 0.10 10*3/uL 0.00-0.06 H LYMPH x10^3 (test code = 731-0) 3.88 10*3/uL 1.09-3.23 H MONO x10^3 (test code = 742-7) 0.98 10*3/uL 0.36-1.02 EOS x10^3 (test code = 711-2) 0.22 10*3/uL 0.06-0.53 BASO x10^3 (test code = 704-7) 0.09 10*3/uL 0.01-0.09 Lab Interpretation (test code = 09113-7) Abnormal [facility] Notes Date/Time Note Provider Source 2024-12-12 15:09:58 Attempted to return call to Mother with phone on EC. Left vm. Please inform below msg if calls back. Yes must re est care. Also we are Cardiology only. We most often only order Cardiac labs. Will need updated insurance, we are OON with [employer]. Advise get labs at PCP for better lower copay chen for visit orders. [facility] 2024-12-12 14:55:31 Copied from [facility] #[id number]. Topic: Clinical - Medical Advice >> Dec 12, 2024 2:53 PM Patient Intermodal Dispatcher wrote: Kathe Mccray Pts mom is calling and is asking if pt can have a full panel done for bloodwork. Pts mom is asking if orders can be placed into pts chart. Advised pts mom that pt has not been seen for an appointment since 08/22/21. Please advise. Alem Yeung [facility] [employer]"
[2024-12-28] MEDS ORDERED: HYDRALAZINE HCL 20 MG/ML VIAL ONE ×2 (21:32→22:49)
[2024-12-28] MEDS ORDERED: ASPIRIN 81 MG CHEWABLE TABLET ONE (21:41)
[2024-12-28] MEDS ORDERED: AMLODIPINE 10 MG TAB ONE (21:41)
[2024-12-28 21:44] LABS: Absolute Lymphocytes (CBC) 4.4 K/uL (0.7-4.9); Hematocrit 47.2 % (39.6-49.0); Hemoglobin 16.6 g/dL (13.6-17.9); MCH 28.5 pg (27.0-35.0); MCHC 35.1 g/dL (32.0-36.0); MCV 81.3 fL (80-100); MPV 7.6 fL (7.6-11.3); Nucleated RBC Absolute Count 0.0 (0-0); Nucleated Red Blood Cells % 0.1 % (0-0); RBC Red Blood Cell Count 5.81 M/uL (4.33-5.43); White Blood Count 13.60 thou/uL (4.3-10.9)
[2024-12-28 21:48] LABS: PT Prothrombin Time 11.5 SECONDS (10-13.0); Protime INR 1.02
[2024-12-28 22:04] LABS: ALT/SGPT 64 U/L (16-61); Albumin 3.3 g/dL (3.4-5.0); Albumin/Globulin Ratio 0.9 (1.1-1.8); Alkaline Phosphatase 75 U/L (45-117); Anion Gap 7.1 mEq/L (5.0-15.0); BUN Blood Urea Nitrogen 14 mg/dL (7-18); Globulin 3.8 g/dL (2.3-3.5); Glucose Level 163 mg/dL (74-106); NT PRO-BNP 157 pg/mL (<125); Troponin High Sensitivity 42.0 pg/mL (<58.9)
[2024-12-28 22:07] LABS: AST/SGOT 29 U/L (15-37); Bilirubin Indirect, Calculated 0.5 mg/dL (0.2-0.8); Magnesium 1.7 mg/dL (1.6-2.4); Potassium 3.1 mEq/L (3.5-5.1)
--- NOTE | 2024-12-28 22:22 | RAD REPORT ---
EXAM: Chest Single View HISTORY: 29 years Male CHEST PAIN COMPARISON: No prior exams FINDINGS: LUNGS/PLEURA: The lungs are clear. No pleural effusions or pneumothorax. No pulmonary edema. CARDIAC/MEDIASTINUM: Magnified by portable technique, but probably within normal limits. UPPER ABDOMEN: No significant abnormality. BONES: No acute abnormality. LINES/TUBES/OTHER: N/A IMPRESSION: No evidence of acute cardiopulmonary disease.
--- NOTE | 2024-12-28 23:43 | ER ---
Nurse's Notes [facility] Name: Kathe Cotto Age: 29 yrs Sex: Male : 1995 Arrival Date: 12/28/2024 Time: 20:45 Bed 4 Private MD: Diagnosis: Essential (primary) hypertension;Shortness of breath Presentation: 12/28 20:50 Chief complaint: Patient states: I feel hot and short of breath and nauseous. I think jb4 my blood pressure is up. Coronavirus screen: At this time, the client does not indicate any symptoms associated with coronavirus-19. Ebola Screen: No symptoms or risks identified at this time. Initial Sepsis Screen: Does the patient meet any 2 criteria? HR > 90 bpm. Yes Does the patient have a suspected source of infection? No. Patient's initial sepsis screen is negative. Risk Assessment: Do you want to hurt yourself or someone else? Patient reports no desire to harm self or others. Onset of symptoms was December 28, 2024. Transition of care: patient was not received from another setting of care. 20:50 Method Of Arrival: Ambulatory jb4 20:50 Acuity: ISAAC 2 jb4 Historical: - Allergies: 20:52 No Known Allergies; jb4 - PMHx: 20:52 Hernia; Hypertension; intussusception; Sleep Apnea; jb4 - PSHx: 20:52 Appendectomy; jb4 - Immunization history:: Adult Immunizations up to date. - Infectious Disease History:: Denies. - Social history:: Smoking status: Patient denies any tobacco usage or history of. Screenin:11 [facility] ED Fall Risk Assessment (Adult) History of falling in the last 3 months, kd4 including since admission No falls in past 3 months (0 pts) Confusion or Disorientation No (0 pts) Intoxicated or Sedated No (0 pts) Impaired Gait No (0 pts) Mobility Assist Device Used No (0 pt) Altered Elimination No (0 pt) Score/Fall Risk Level 0 - 2 = Low Risk Oriented to surroundings, Maintained a safe environment, Educated pt \T\ family on fall prevention, incl call for assistance when getting out of bed, Assessed \T\ reinforced patient's understanding of fall precautions. Abuse screen: Denies threats or abuse. Nutritional screening: No deficits noted. Tuberculosis screening: No symptoms or risk factors identified. Assessment: 21:11 General: Appears uncomfortable, Behavior is calm, cooperative, Reports fatigue for 1-2 kd4 days. Pain: Complains of pain in chest Pain currently is 5 out of 10 on a pain scale. Neuro: Level of Consciousness is awake, alert, obeys commands, Oriented to person, place, time, situation, Appropriate for age. Cardiovascular: Reports chest pain, fatigue, nausea. Respiratory: Reports shortness of breath at rest. GI: Abdomen is non-distended, Reports nausea. 23:57 General: Reports d/c instruction given to patient , he verbalizes understanding, ok to kd4 d/c per MD. Vital Signs: 20:50 BP 202 / 138; Pulse 97; Resp 16; Temp 98.2(TE); Pulse Ox 98% on R/A; Weight 170.1 kg; jb4 Height 6 ft. 0 in. (R); 21:11 BP 197 / 132; Pulse 96; Resp 20; Temp 98.9; Pulse Ox 99% on R/A; Weight 170.1 kg; kd4 Height 6 ft. 0 in. ; Pain 5/10; 21:15 BP 199 / 140; Pulse 93; Resp 18; Pulse Ox 99% ; me1 22:33 BP 169 / 98; Pulse 88; Resp 20; Pulse Ox 98% on R/A; kd4 23:03 BP 168 / 114; Pulse 96; Resp 20; Pulse Ox 97% on R/A; kd4 23:58 BP 162 / 103; Pulse 89; Resp 19; Temp 98.5; Pulse Ox 98% on R/A; Pain 0/10; kd4 21:11 Body Mass Index 50.86 (170.10 kg, 182.88 cm) kd4 21:11 Pain Scale: Adult kd4 23:58 Pain Scale: Adult kd4 [place] Coma Score: 21:11 Eye Response: spontaneous(4). Motor Response: obeys commands(6). Verbal Response: kd4 oriented(5). Total: 15. ED Course: 20:47 Patient arrived in ED. gm2 20:49 Puneet Patel DO is Attending Physician. ms3 20:52 Triage completed. jb4 20:52 Arm band placed on right wrist. jb4 21:11 Patient has correct armband on for positive identification. Bed in low position. Call kd4 light in reach. Side rails up X2. Client placed on continuous cardiac and pulse oximetry monitoring. NIBP monitoring applied. hospital monitor on. Pulse ox on. NIBP on. 21:35 Initial lab(s) drawn, by me, sent to lab. EKG done, by ED staff, reviewed by Puneet Patel DO. Inserted saline lock: 20 gauge in left antecubital area, using aseptic technique. Blood collected. Flushed with 10 mL NS. 21:36 Basic Metabolic Panel Sent. me1 21:36 CBC with Diff Sent. me1 21:36 LFT's Sent. me1 21:36 Magnesium Sent. me1 21:36 NT PRO-BNP Sent. me1 21:36 PT-INR Sent. me1 21:36 Troponin HS Sent. me1 22:10 XRAY Chest (1 view) In Process Unspecified. EDMS 23:03 Tereza Lizama, MICKEY is Primary Nurse. kd4 23:42 Nuno Walker MD is Referral Physician. ms3 23:56 Provided Education on: D/c instruction. kd4 23:56 No provider procedures requiring assistance completed. IV discontinued, intact. kd4 Administered Medications: 21:37 Drug: hydrALAZINE IVP 10 mg IVP once Route: IVP; Site: left antecubital; [facility] [place] 12/29 00:00 Follow up: Response: No adverse reaction 4 12/28 21:44 Drug: Aspirin PO Chewable Tablet 324 mg PO once; 81 mg tablets x 4 Route: PO; [facility] [place] 21:44 Drug: amLODIPine PO 10 mg PO once Route: PO; [facility] [place] 12/29 00:00 Follow up: Response: No adverse reaction 4 12/28 23:03 Drug: hydrALAZINE IVP 10 mg IVP once Route: IVP; Site: left antecubital; kd4 23:59 Follow up: Response: No adverse reaction kd4 Medication: 21:11 VIS not applicable for this client. kd4 Outcome: 23:43 Discharge ordered by . ms3 23:56 Discharged to home ambulatory, kd4 23:56 Condition: stable 23:56 Discharge instructions given to patient, Instructed on discharge instructions, follow up and referral plans. 23:59 Patient left the ED. kd4 Signatures: Dispatcher [employer] EDJoey Worrell, RN RN jb4 Puneet Patel DO DO ms3 Nicole Rodríguez RN RN me1 Isabela Hackett gm2 Tereza Lizmaa RN RN kd4 Corrections: (The following items were deleted from the chart) 20:53 20:50 Acuity: ISAAC 3 jb4 jb4 20:53 20:50 Pulse 97bpm; Resp 16bpm; Pulse Ox 98% RA; Temp 98.2F Temporal; 170.1 kg; Height 6 jb4 ft. 0 in. Reported; BMI: 50.8; jb4
--- NOTE | 2024-12-28 23:43 | EDPHYS ---
Physician Documentation [facility] Name: Kathe Cotto Age: 29 yrs Sex: Male : 1995 Arrival Date: 12/28/2024 Time: 20:45 Bed 4 Private MD: ED Physician Puneet Patel HPI: 12/28 20:56 This 29 yrs old Male presents to ER via Ambulatory with complaints of High ms3 Blood Pressure. 20:56 29-year-old male with past medical history of hernia, hypertension, intussusception, ms3 sleep apnea presents to the emergency department for the sensation that his blood pressure is high. Patient explains this sensation as feeling hot with shortness of breath. Patient endorses nausea and mild chest pain that he rates at 5/10. Patient states the chest pain becomes worse when he is bending down. He describes the pain as being sharp. Patient denies any alleviating factors. Patient notes he has been out of his amlodipine 10 mg tablets for 2 days since he left the medication at his mother's house.. Historical: - Allergies: 20:52 No Known Allergies; jb4 - PMHx: 20:52 Hernia; Hypertension; intussusception; Sleep Apnea; jb4 - PSHx: 20:52 Appendectomy; jb4 - Immunization history:: Adult Immunizations up to date. - Infectious Disease History:: Denies. - Social history:: Smoking status: Patient denies any tobacco usage or history of. ROS: 20:56 Constitutional: Negative for fever, and chills. ms3 20:56 MS/Extremity: Negative for injury and deformity, Skin: Negative for injury, rash, and discoloration, 20:56 Cardiovascular: Positive for chest pain, 20:56 Respiratory: Positive for shortness of breath, Exam: 20:56 Constitutional: This is a well developed, well nourished patient who is awake, alert, ms3 and in no acute distress. Cardiovascular: Regular rate and rhythm with a normal S1 and S2. No gallops, murmurs, or rubs. Normal PMI, no JVD. No pulse deficits. Respiratory: Lungs have equal breath sounds bilaterally, clear to auscultation and percussion. No rales, rhonchi or wheezes noted. No increased work of breathing, no retractions or nasal flaring. 20:56 Skin: Warm, dry with normal turgor. Normal color with no rashes, no lesions, and no evidence of cellulitis. 20:56 Abdomen/GI: Inspection: obese Bowel sounds: normal, in all quadrants, Palpation: abdomen is soft and non-tender, in all quadrants, Hernia: noted in the umbilical area, incarceration, is not appreciated, tenderness, is not appreciated, 21:08 ECG was reviewed by the Attending Physician. ms3 Vital Signs: 20:50 BP 202 / 138; Pulse 97; Resp 16; Temp 98.2(TE); Pulse Ox 98% on R/A; Weight 170.1 kg; jb4 Height 6 ft. 0 in. (R); 21:11 BP 197 / 132; Pulse 96; Resp 20; Temp 98.9; Pulse Ox 99% on R/A; Weight 170.1 kg; kd4 Height 6 ft. 0 in. ; Pain 5/10; 21:15 BP 199 / 140; Pulse 93; Resp 18; Pulse Ox 99% ; me1 22:33 BP 169 / 98; Pulse 88; Resp 20; Pulse Ox 98% on R/A; kd4 23:03 BP 168 / 114; Pulse 96; Resp 20; Pulse Ox 97% on R/A; kd4 23:58 BP 162 / 103; Pulse 89; Resp 19; Temp 98.5; Pulse Ox 98% on R/A; Pain 0/10; kd4 21:11 Body Mass Index 50.86 (170.10 kg, 182.88 cm) kd4 21:11 Pain Scale: Adult kd4 23:58 Pain Scale: Adult kd4 [place] Coma Score: 21:11 Eye Response: spontaneous(4). Motor Response: obeys commands(6). Verbal Response: kd4 oriented(5). Total: 15. MDM: 20:54 Medical Screening Exam initiated ms3 20:56 Differential diagnosis: hypertensive crisis, Malignant HTN, RI vs CHF. ms3 23:41 Refusal of service: The patient/guardian displays adequate decision making capability ms3 and despite a detailed discussion of alternatives, benefits, risks, and consequences refuses: Admission to the hospital for further work-up and treatment. 12/29 00:14 Data reviewed: vital signs, nurses notes, lab test result(s), EKG, radiologic studies, ms3 and as a result, I will discharge patient. Consideration of Admission/Observation Escalation of care including admission/observation considered. Patient refusing observation. I considered the following discharge prescriptions or medication management in the emergency department Medications were administered in the Emergency Department. See MAR. Independent interpretation of the following test(s) in the Emergency Department EKG: See my EKG interpretation above. Independent interpretation of the following test(s) in the Emergency Department X-Ray: My interpretation is Chest x-ray image reviewed by me does not reveal pulmonary edema. Counseling: I had a detailed discussion with the patient and/or guardian regarding the historical points, exam findings, and any diagnostic results supporting the discharge/admit diagnosis, lab results, radiology results, the need for outpatient follow up, to return to the emergency department if symptoms worsen or persist or if there are any questions or concerns that arise at home. Response to treatment: the patient's symptoms have mildly improved after treatment. ED course: Patient has decided to refuse hospital admission for further care. At this time, I reevaluated the patient and discussed the following: a. Capacity: The patient has the capacity to communicate, understand information, and logically process the decision making process. b. Communication of risks: At bedside, I discussed potential risks, outcomes, and alternative approaches in a patientcentered manner. The patient was informed of the specific risks of heart attack, stroke, including worsening condition and . The patient understands that they are welcome to return at any time to complete the workup. Patient is discharged from my care with informed refusal.. 12/28 20:55 Order name: Basic Metabolic Panel; Complete Time: 22:13 ms3 12/28 20:55 Order name: CBC with Diff; Complete Time: 22:13 ms3 12/28 20:55 Order name: LFT's; Complete Time: 22:13 ms3 12/28 20:55 Order name: Magnesium; Complete Time: 22:13 ms3 12/28 20:55 Order name: NT PRO-BNP; Complete Time: 22:13 ms3 12/28 20:55 Order name: PT-INR; Complete Time: 22:13 ms3 12/28 20:55 Order name: Troponin HS; Complete Time: 22:13 ms3 12/28 22:44 Order name: Troponin High Sensitivity; Complete Time: 23:39 ms3 12/28 20:55 Order name: XRAY Chest (1 view); Complete Time: 22:41 ms3 12/28 20:55 Order name: Cardiac monitoring; Complete Time: 21:36 ms3 12/28 20:55 Order name: EKG - Nurse/Tech; Complete Time: 21:36 ms3 12/28 20:55 Order name: IV Saline Lock; Complete Time: 21:36 ms3 12/28 20:55 Order name: Labs collected and sent; Complete Time: 21:36 ms3 12/28 20:55 Order name: O2 Per Protocol; Complete Time: 21:36 ms3 12/28 20:55 Order name: O2 Sat Monitoring; Complete Time: 21:36 ms3 EC/10 21:08 Rate is 94 beats/min. Rhythm is regular. QRS [place] is Normal. [place] interval is normal. QRS ms3 interval is normal. Clinical impression: NSR w/ Non-specific ST/T Changes and LVH. Interpreted by me. Reviewed by me. Administered Medications: 21:37 Drug: hydrALAZINE IVP 10 mg IVP once Route: IVP; Site: left antecubital; [facility] [place] [place] 12/29 00:00 Follow up: Response: No adverse reaction kd4 12/28 21:44 Drug: Aspirin PO Chewable Tablet 324 mg PO once; 81 mg tablets x 4 Route: PO; [facility] [place] [place] 21:44 Drug: amLODIPine PO 10 mg PO once Route: PO; [facility] [place] [place] 12/29 00:00 Follow up: Response: No adverse reaction kd4 12/28 23:03 Drug: hydrALAZINE IVP 10 mg IVP once Route: IVP; Site: left antecubital; kd4 23:59 Follow up: Response: No adverse reaction kd4 Disposition Summary: 12/28/24 23:43 Discharge Ordered Notes: Location: Home ms3 Condition: Stable ms3 Diagnosis - Essential (primary) hypertension ms3 - Shortness of breath ms3 Followup: ms3 - With: Nuno Walker MD - When: 1 - 2 days - Reason: Recheck today's complaints Discharge Instructions: - Discharge Summary Sheet ms3 - Hypertension, Adult ms3 - Shortness of Breath, Adult ms3 - DASH Eating Plan ms3 Forms: - Medication Reconciliation Form ms3 - Antibiotic Education ms3 - Prescription Opioid Use ms3 - Patient Portal Instructions ms3 - Leadership Thank You Letter ms3 Critical care time excluding procedures: 23:44 Critical care time: Bedside Care: 35 minutes, Family Intervention: 5 minutes. Total ms3 time: 40 minutes Signatures: Dispatcher [employer] EDMS Joey Whipple, RN RN jb4 Puneet Patel, DO ms3 Nicole Rodríguez, RN RN me1 Tereza Lizama, RN RN kd4 Corrections: (The following items were deleted from the chart) 20:56 20:55 BASIC METABOLIC PANEL+C.LAB.BRZ ordered. EDMS EDMS 20:56 20:55 CBC+H.LAB.BRZ ordered. EDMS EDMS 20:56 20:55 HEPATIC FUNCTION+C.LAB.BRZ ordered. EDMS EDMS 20:56 20:55 MAGNESIUM+C.LAB.BRZ ordered. EDMS EDMS 20:56 20:55 PROBNP+C.LAB.BRZ ordered. EDMS EDMS 20:56 20:55 PROTIME (+INR)+COAG.LAB.BRZ ordered. EDMS EDMS 20:56 20:55 Troponin High Sensitivity+C.LAB.BRZ ordered. EDMS EDMS 20:56 20:56 Chest Single View+RAD.RAD.BRZ ordered. EDMS EDMS 22:44 22:44 Troponin High Sensitivity+C.LAB.BRZ ordered. EDMS EDMS
[2024-12-29 00:42] VITALS: BP 162/103; TEMP 98.5; O2SAT 98
== END 2024-12-28 23:59 | disposition home or self-care (01) ==
LOC: ER 20:45
DX: I10 Essential (primary) hypertension (principal); R06.02 Shortness of breath
CPT/HCPCS: 93005; 85025; 80048; 36415; 83735; 85610; 80076; 84484 ×2; 83880; 71045; 96374; 99285; J0360 ×2